=== PATIENT | male | born 1945 | race Caucasian/White ===

== ENCOUNTER → 2019-07-23 | Outpatient (CLI) | payer MEDICARE, OTHER ==
[2019-07-23 15:34] LABS: HCT 43.6 % (39.0-53.0); HGB 13.9 gm/dL (13.0-17.5); MCH 27.5 pg (25.0-35.0); MCHC 31.8 g/dL (31.0-37.0); MCV 86.3 fL (80.0-100.0); Mean Platelet Volume 7.1; Platelet Count 280 k/uL (150-450); RBC 5.06 m/uL (4.30-5.90); RDW 13.8 % (11.5-15.5); WBC 15.6 k/uL (3.8-10.6)
[2019-07-23 15:38] LABS: Appearance,Urine Clear (Clear); Bilirubin,Urine Negative (Negative); Blood,Urine Moderate (Negative); Color,Urine Yellow; Glucose,Urine (UA) Negative (Negative); Ketones,Urine 3+ (Negative); Leukocyte Esterase,Urine Trace (Negative); Mucus,Urine Many /hpf; Nitrite,Urine Negative (Negative); Protein,Urine Trace (Negative); RBC,Urine 43 /hpf (0-5); Specific Gravity,Urine 1.025 (1.001-1.035); Squamous Epithelial Cell,Urine <1 /hpf (0-4); Urobilinogen,Urine <2.0 mg/dL (<2.0); WBC,Urine 4 /hpf (0-5)
[2019-07-23 16:38] LABS: ALT 15 U/L (4-49); AST 40 U/L (17-59); African American GFR (CKD) >90 (>60 ml/min/1.73 sqM); Albumin 4.6 g/dL (3.5-5.0); Alkaline Phosphatase 131 U/L (38-126); Anion Gap 12 mmol/L; Blood Urea Nitrogen 18 mg/dL (9-20); Calcium 9.2 mg/dL (8.4-10.2); Carbon Dioxide 25 mmol/L (22-30); Chloride 96 mmol/L (98-107); Glucose 102 mg/dL (74-99); Non-African American GFR(CKD) 88 (>60 ml/min/1.73 sqM); Potassium 4.6 mmol/L (3.5-5.1); Sodium 133 mmol/L (137-145); Total Bilirubin 1.3 mg/dL (0.2-1.3); Total Protein 7.7 g/dL (6.3-8.2)
--- NOTE | 2019-07-23 17:37 | CT ---
EXAMINATION TYPE: CT abdomen pelvis w con DATE OF EXAM: 07/23/2019 COMPARISON: Ultrasound dated 07/23/2019 HISTORY: Abdominal pain, abnormal US CT DLP: 457.4 mGycm Automated exposure control for dose reduction was used. TECHNIQUE: Helical acquisition of images was performed from the lung bases through the pelvis. CONTRAST: Performed with Oral Contrast and with IV Contrast, patient injected with 100 mL of Isovue 300. FINDINGS: LUNG BASES: There is mild emphysematous change at the lung bases. There is a 5 mm solid pulmonary nod ule on image 2 series 4 in the right lung base. There is mild dilatation of the distal esophagus. Gas troesophageal stricture is possible. LIVER/GB: Are too small to accurately characterize 3 mm hepatic lesions in the left hepatic lobe on s eries 3 image 4 and 5. PANCREAS: Unremarkable enhancement with no main pancreatic ductal dilatation. SPLEEN: No splenomegaly. ADRENALS: No nodularity or thickening. KIDNEYS: The right kidney is markedly abnormal. There is moderate right hydronephrosis with dilatatio n of the minor calyces, particularly in the right upper pole. There is perinephric fat stranding and delayed enhancement of the right kidney in comparison to the left. There is a complex masslike lesion in the right upper pole measuring approximately 3.1 x 3.5 cm demonstrating central hypoattenuation o n delayed imaging. The urinary bladder is incompletely distended and suboptimally evaluated. Prostate gland is heterogenous containing central zone calcifications. Coronal images of the left kidney demo nstrate a renal sinus cyst of the inferior. FREE AIR: No free air is visualized. ADENOPATHY: No greater than 1 cm short axis lymph node in the abdomen or pelvis. OSSEOUS STRUCTURES: There is an osteolytic lesion of the pedicle and transverse processes and extend ing into the spinous process and spinal canal of L4 on the left. The soft tissue component measures a pproximately 3.0 x 4.2 cm. There is central spinal canal stenosis that appears at least moderate. The re is questionable extension to the inferior facet of L3 on sagittal image 59. BOWEL: No dilated large or small bowel seen. OTHER: There is severe atherosclerosis of the abdominal aorta and its branches. IMPRESSION: COMPLEX MASS OF THE RIGHT UPPER POLE THE KIDNEY. 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
== END | disposition home or self-care (01) ==
LOC: RADCTMAIN 14:20
PROVIDERS: ATTEND Nurse Practitioner Family
DX: N28.89 Other specified disorders of kidney and ureter (principal); N12 Tubulo-interstitial nephritis, not specified as acute or chronic; N13.30 Unspecified hydronephrosis; C64.9 Malignant neoplasm of unspecified kidney, except renal pelvis; C79.49 Secondary malignant neoplasm of other parts of nervous system; N20.0 Calculus of kidney; R30.0 Dysuria
CPT/HCPCS: 80053; 85027; 81001; 74177; 36415; Q9967

== ENCOUNTER → 2019-07-23 | Outpatient (CLI) | payer MEDICARE, OTHER ==
--- NOTE | 2019-07-23 13:46 | US ---
EXAMINATION TYPE: US kidneys/renal and bladder DATE OF EXAM: 07/23/2019 COMPARISON: CT 06/17/2013 CLINICAL HISTORY: N20.0 Kidney stone. Right flank pain EXAM MEASUREMENTS: Right Kidney: 11.4 x 5.0 x 4.9 cm Left Kidney: 10.8 x 4.7 x 4.6 cm Right Kidney: Mild hydronephrosis. Complex, hyperechoic area upper pole measuring 3.2 x 3.1 x 3.2 cm with internal vascularity Left Kidney: Cystic area lower pole measuring 1.6 x 1.5 x 1.3 cm Bladder: Irregular appearance. Mass appearance vs prostate. Difficult and limited evaluation. Patient states he drank the required water. Bilateral Jets seen: No IMPRESSION: 1. Complex mass upper pole right kidney. Neoplasm not excluded. CT correlation advised. 2. Mild right-sided hydronephrosis. 3. Limited evaluation of the urinary bladder.
== END | disposition home or self-care (01) ==
LOC: RADUSMAIN 13:06
PROVIDERS: ATTEND Nurse Practitioner Family
DX: N28.89 Other specified disorders of kidney and ureter (principal); N13.30 Unspecified hydronephrosis
CPT/HCPCS: 76770

== ENCOUNTER → 2019-07-28 | Outpatient (CLI) | payer MEDICARE, OTHER ==
--- NOTE | 2019-07-28 16:17 | NM ---
EXAMINATION TYPE: NM bone scan whole body DATE OF EXAM: 07/28/2019 COMPARISON: NONE CT 07/23/2019 HISTORY: History of renal malignancy Delayed whole-body scanning was performed following the injection of 21.7 mCi Tc 99m MDP. Images acq uired 3 hours post injection. Findings: intense abnormal uptake at the L3-L4 level on the left paracentral. This corresponds to a d estructive changes seen by previous CT scan. Abnormal uptake involving the shoulders likely post arthritic. Abnormal uptake involving the cervical spine the left nonspecific. Abnormal uptake involving the shoulders. The right is nonspecific but likely post arthritic. IMPRESSION: 1. Intense abnormal uptake at the lower lumbar spine level corresponding to the abnormal CT scan comp atible with destructive metastatic lesion. 2. Asymmetric uptake involving the shoulders greater on the right still likely post arthritic. 3. Nonspecific uptake involving the upper cervical spine on the left. Relate with x-ray.
== END | disposition home or self-care (01) ==
LOC: RADNMMAIN 11:15
PROVIDERS: ATTEND Internal Medicine Geriatric Medicine
DX: C64.9 Malignant neoplasm of unspecified kidney, except renal pelvis (principal)
CPT/HCPCS: 78306; A9503

== ENCOUNTER 2019-08-27 08:26 | Day surgery (SDC) | payer MEDICARE, OTHER ==
[2019-08-27 09:03] VITALS: TEMP 98.1
[2019-08-27] MEDS ORDERED: ALPRAZolam 0.25 MG TAB PO STA (09:24)
[2019-08-27 09:26] LABS: Platelet Count 509 k/uL (150-450)
[2019-08-27 09:32] LABS: Prothrombin Time 10.1 sec (9.0-12.0)
[2019-08-27 09:33] LABS: African American GFR (CKD) >90 (>60 ml/min/1.73 sqM); Blood Urea Nitrogen 22 mg/dL (9-20); Non-African American GFR(CKD) >90 (>60 ml/min/1.73 sqM)
--- NOTE | 2019-08-27 11:14 | CT ---
EXAMINATION TYPE: CT chest w con DATE OF EXAM: 08/27/2019 COMPARISON: Correlation CT abdomen pelvis 07/23/[address] chest 08/07/2013 HISTORY: 74-year-old male New renal diagnosis of renal cancer. TECHNIQUE: Contiguous axial scanning of the chest after the administration of 100 mL of Isovue 300. Coronal/sagittal reconstructions performed. CT DLP: 454mGycm. Automatic exposure control utilized for a dose reduction. FINDINGS: Heart normal size without pericardial effusion. Aorta normal caliber with mild atherosclerotic arch calcifications and conventional arch vessel branc aliyah anatomy. Prominent but nonenlarged 7 mm left hilar lymph node unchanged from 2013, likely chronic reactive/pos t inflammatory. No thoracic lymphadenopathy by CT size criteria. Right apical pleural parenchymal scarring. Moderate centrilobular emphysema. Trace left pleural effus ion. Ill-defined 6 mm nodularity posterior left base and some adjacent patchy interstitial thickening. 4 mm and 6 cm pulmonary nodules left lower lobe, axial images 55 and 48, respectively. Known right renal lesion partially visualized. No osseous destructive process identified within the thorax. IMPRESSION: 1. COPD with moderate emphysema. 2. Some mild patchy interstitial density at the posterior left base with a trace left effusion. Corre late to exclude an early infectious/inflammatory infiltrate. 3. Approximately 3 left lower lobe pulmonary nodules measuring up to 6 mm could be inflammatory as we ll. Short interval follow-up recommended to exclude metastatic pulmonary nodules.
[2019-08-27 11:29] VITALS: RESP 18
--- NOTE | 2019-08-27 11:44 | CT ---
EXAMINATION TYPE: CT biopsy bone superficial DATE OF EXAM: 08/27/2019 COMPARISON: 07/23/2019 HISTORY: L4 vertebral destructive mass CT DLP: 561 mGycm The procedure is discussed with the patient, the risks, complications, benefits and alternatives, wer e discussed and any questions were answered. Informed consent was obtained. The patient is placed p susu on the CT table, prepped and draped in the usual sterile fashion. Utilizing a 18-gauge core biopsy needle access into the destructive L4 vertebral mass was achieved wi th 2 passes performed. Pathology pending. All elements of maximal barrier sterile technique were ut ilized. The patient remained stable throughout the procedure with no immediate postprocedural compli cation. IMPRESSION: 1. Successful CT guided core biopsy of a destructive L4 vertebral mass
[2019-08-27 13:18] VITALS: BP 128/73; PULSE 99
== END 2019-08-27 12:30 | disposition home or self-care (01) ==
LOC: RADPROMAIN 08:26
PROVIDERS: ATTEND Internal Medicine Hematology & Oncology
DX: C64.9 Malignant neoplasm of unspecified kidney, except renal pelvis (principal); M48.8X6 Other specified spondylopathies, lumbar region; D41.10 Neoplasm of uncertain behavior of unspecified renal pelvis; Z88.0 Allergy status to penicillin
CPT/HCPCS: 88305; 82565; 84520; 85049; 85610; 88342; 88341; 36415; 77012; 71260; 20220; Q9967

== ENCOUNTER → 2019-12-15 | Outpatient (CLI) | payer MEDICARE, OTHER ==
[2019-12-15 10:42] LABS: African American GFR (CKD) >90 (>60 ml/min/1.73 sqM); Blood Urea Nitrogen 17 mg/dL (9-20); Non-African American GFR(CKD) 88 (>60 ml/min/1.73 sqM)
--- NOTE | 2019-12-16 21:17 | CT ---
EXAMINATION TYPE: CT ChestAbdPelvis w con DATE OF EXAM: 12/15/2019 INDICATION: Renal cancer COMPARISON: 08/27/2019 CT DLP: 1140 mGycm CONTRAST: Performed with Oral Contrast and with IV Contrast, patient injected with 100 ml mL of Isovue 300. TECHNIQUE: Axial images at 5 mm thick sections. Reconstructed images in the coronal plane. Delayed images through the kidneys. FINDINGS: CT CHEST: Portion of the thyroid visualized is normal. Mild increase lung opacities are within the medial left upper lung field. Small nodule may be present measuring 0.6 cm. Series 4 image 30. No enlarged mediastinal or hilar adenopathy is evident. The ascending aorta diameter at the level of the main pulmonary artery is 3.7 cm. The main pulmonary artery diameter at the bifurcation is 2.[address] ABDOMEN: Liver: Normal Spleen: Normal Pancreas: Normal Adrenal glands: The adrenal glands are normal. Gallbladder: Normal Kidneys: There is ill-defined hypodensity within the superior posterior right kidney measuring 2.3 cm this may be postsurgical does not appear as masslike density comparison 07/23/2019 CT abdomen. No hydr onephrosis is present. There may be small peripelvic cysts at the inferior pole left kidney. Aorta: Vascular calcification is within the aorta. Minimal fusiform prominence measuring 2.5 cm in A P diameter. Inferior vena cava: Normal. CT PELVIS: Loops of bowel within the abdomen and pelvis are normal. Moderate fecal debris is through the ascendi ng colon. There are loops of bowel which are incompletely distended or lack oral contrast limiting t heir evaluation. Appendix: Not identified. No suspicious tubular structures or inflammatory changes are evident. Urinary bladder: Normal. Genitourinary structures: State appears within normal limits Osseous structures: There is a lytic region within the spinous process of L4. A metastatic lesion corina uld be considered within the lamina of L4 extending into the spinous process. Series 7 image 39, seri es 6 image 67. Measurements are 3.6 x 2.0 cm. This is compared to 3.0 x 4.2 cm. Spinal canal narrowi ng remains present. IMPRESSIONS: 1. There appear to be postsurgical changes at the superior pole right kidney with ill-defined hypoden sity present small the previous masslike area in this region. 2. Lytic lesion with expansile findings at the L4 lamina, present previously 3. Suspected peripelvic cyst inferior pole left kidney. 4. Suspected 0.6 cm nodule medial lingula. This is an interval change.
== END | disposition home or self-care (01) ==
LOC: RADCTMAIN 09:17
PROVIDERS: ATTEND Internal Medicine Hematology & Oncology
DX: C64.9 Malignant neoplasm of unspecified kidney, except renal pelvis (principal); C79.51 Secondary malignant neoplasm of bone; R93.421 Abnormal radiologic findings on diagnostic imaging of right kidney; Z88.0 Allergy status to penicillin
CPT/HCPCS: 82565; 84520; 71260; 74177; 36415; Q9967

== ENCOUNTER 2020-01-21 17:08 | Emergency (ER) | payer MEDICARE, OTHER ==
[2020-01-21 17:16] VITALS: RESP 18
[2020-01-21 18:06] LABS: ALT 26 U/L (4-49); AST 40 U/L (17-59); African American GFR (CKD) >90 (>60 ml/min/1.73 sqM); Albumin 3.6 g/dL (3.5-5.0); Alkaline Phosphatase 70 U/L (38-126); Anion Gap 8 mmol/L; Blood Urea Nitrogen 19 mg/dL (9-20); Calcium 8.4 mg/dL (8.4-10.2); Carbon Dioxide 28 mmol/L (22-30); Chloride 102 mmol/L (98-107); Glucose 92 mg/dL (74-99); Non-African American GFR(CKD) >90 (>60 ml/min/1.73 sqM); Potassium 3.4 mmol/L (3.5-5.1); Sodium 138 mmol/L (137-145); Total Bilirubin 1.9 mg/dL (0.2-1.3); Total Protein 5.9 g/dL (6.3-8.2)
[2020-01-21 18:19] LABS: Anisocytosis Slight; Basophils % (A) 0 %; Eosinophils # (A) 0.1 k/uL (0-0.7); Eosinophils % (A) 3 %; HCT 43.7 % (39.0-53.0); HGB 14.4 gm/dL (13.0-17.5); Lymphocytes # (A) 1.7 k/uL (1.0-4.8); Lymphocytes % (A) 39 %; MCHC 32.9 g/dL (31.0-37.0); MCV 97.3 fL (80.0-100.0); Macrocytosis Slight; Mean Platelet Volume 7.9; Monocytes # (A) 0.3 k/uL (0-1.0); Monocytes % (A) 6 %; Neutrophils # (A) 2.3 k/uL (1.3-7.7); Neutrophils % (A) 51 %; Platelet Count 117 k/uL (150-450); RBC 4.49 m/uL (4.30-5.90); RDW 17.5 % (11.5-15.5); WBC 4.5 k/uL (3.8-10.6)
[2020-01-21] MEDS ORDERED: POTASSIUM CHLORIDE ER 10 MEQ TAB.ER.PRT PO STA (19:05)
--- NOTE | 2020-01-21 19:07 | ED ---
General Adult HPI - General Chief complaint: Dental/Oral Stated complaint: Spitting up blood, needs blood work, sent by Dr Time Seen by Provider: 01/21/20 17:18 Source: patient, RN notes reviewed, old records reviewed Mode of arrival: wheelchair Limitations: no limitations - History of Present Illness Initial comments: 74-year-old male patient to ED for evaluation. Patient reports that he noticed the blue spot on his tongue underneath his tongue. He is currently taking oral chemotherapy for renal cell carcinoma. Denies any other acute complaints. He denies any active bleeding. Systemic: Pt denies fatigue, fever/chills, rash. Pt denies weakness, night sweats, weight loss. Neuro: Pt denies headache, visual disturbances, syncope or pre-syncope. HEENT: Pt denies ocular discharge or irritation, otalgia, rhinorrhea, pharyngitis or notable lymphadenopathy. Cardiopulmonary: Pt denies chest pain, SOB, heart palpitations, dyspnea on exertion. Abdominal/GI: Pt denies abdominal pain, n/v/d. : Pt denies dysuria, burning w/ urination, frequency/urgency. Denies new onset urinary or bowel incontinence. MSK: Pt denies myalgia, loss of strength or function in extremities. Neuro: Pt denies new onset weakness, paresthesias. - Related Data Home Medications Medication Instructions Recorded Confirmed Albuterol Sulfate [Proair Hfa] 2 puff INHALATION RT-Q6H PRN 08/07/13 01/21/20 Tiotropium 18 Mcg/Puff [Spiriva] 2 cap INHALATION RT-DAILY 08/07/13 01/21/20 Fluticasone/Vilanterol [Breo 1 puff INHALATION RT-DAILY 08/13/19 01/21/20 Ellipta 100-25 Mcg Inhaler] Tamsulosin [Flomax] 0.4 mg PO DAILY 08/13/19 01/21/20 Vits A,C,E/Lutein/Minerals 1 tab PO DAILY 08/13/19 01/21/20 [Ocuvite with Lutein Tablet] Cabozantinib S-Malate [Cabometyx] 60 mg PO DAILY 01/21/20 01/21/20 Calcium Carbonate/Vitamin D3 2 tab PO BID 01/21/20 01/21/20 [Calcium 250-D Tablet] Diphenox-Atrop 2.5-0.025 mg 2 tab PO 5XD PRN 01/21/20 01/21/20 [Lomotil] Omeprazole 40 mg PO DAILY 01/21/20 01/21/20 dronabinoL [Marinol] 2.5 mg PO AC-BID 01/21/20 01/21/20 Allergies Allergy/AdvReac Type Severity Reaction Status Date / Time [place] Sprouts Allergy Swelling Verified 01/21/20 18:45 Penicillins Allergy Unknown Verified 01/21/20 18:45 Childhood venom-honey bee Allergy Unknown Verified 01/21/20 18:45 [bee venom (honey bee)] Childhood Review of Systems ROS Statement: Those systems with pertinent positive or pertinent negative responses have been documented in the HPI. ROS Other: All systems not noted in ROS Statement are negative. Past Medical History Past Medical History: Cancer, COPD Additional Past Medical History / Comment(s): renal mass, bone mets, patient is getting set up to have radiation on his spine (patient is unsure of site) History of Any Multi-Drug Resistant Organisms: None Reported Additional Past Surgical History / Comment(s): hemorroid Past Anesthesia/Blood Transfusion Reactions: No Reported Reaction Past Psychological History: Anxiety Smoking Status: Former smoker Past Alcohol Use History: Occasional Past Drug Use History: None Reported General Exam - General Exam Comments Initial Comments: Constitutional: NAD, AOX3, Pt has pleasant affect. HEENT: NC/AT, trachea midline, neck supple, no lymphadenopathy. Posterior phar ynx non erythematous, without exudates. External ears appear normal, without discharge. Mucous membranes moist. Eyes PERRLA, EOM intact. There is no scleral icterus. No pallor noted. There is a small area of bluish discoloration on his tongue. Cardiopulmonary: RRR, no murmurs, rubs or gallops, no JVD noted. Lungs CTAB in anterior and posterior lowe. No peripheral edema. Abdominal exam: Abdomen soft and non-distended. Abdomen non-tender to palpation in all 4 quadrants. Bowel sounds active in LLQ. No hepatosplenomegaly. No ecchymosis Neuro: Full active ROM in upper and lower extremities. Limitations: no limitations Course Vital Signs 01/21/20 17:14 Temperature 98.5 F Pulse Rate 101 H Respiratory 18 Rate Blood Pressure 136/82 O2 Sat by Pulse 99 Oximetry Medical Decision Making - Medical Decision Making 74-year-old male patient to ED for evaluation. Patient vital signs are stable, afebrile. Physical exam displayed a small about 3 x 3 mm area with a slight bluish discoloration on the tongue. Patient was concerned also about the underneath his tongue which does appear just to be a vein. There is no active bleeding noted. CBC CMP is checked. Potassium is 3.4. Bilirubin is 1.9. Patient has no abdominal tenderness. Patient potassium will be supplemented. Patient will be discharged with outpatient follow up and return precautions. Case discused with Dr. Sparks. - Lab Data Result diagrams: 01/21/20 17:30 01/21/20 17:30 Lab Results 01/21/20 01/21/20 Range/Units 17:30 17:30 WBC 4.5 (3.8-10.6) k/uL RBC 4.49 (4.30-5.90) m/uL Hgb 14.4 (13.0-17.5) gm/dL Hct 43.7 (39.0-53.0) % MCV 97.3 (80.0-100.0) fL MCH 32.0 (25.0-35.0) pg MCHC 32.9 (31.0-37.0) g/dL RDW 17.5 H (11.5-15.5) % Plt Count 117 L (150-450) k/uL Neutrophils % 51 % Lymphocytes % 39 % Monocytes % 6 % Eosinophils % 3 % Basophils % 0 % Neutrophils # 2.3 (1.3-7.7) k/uL Lymphocytes # 1.7 (1.0-4.8) k/uL Monocytes # 0.3 (0-1.0) k/uL Eosinophils # 0.1 (0-0.7) k/uL Basophils # 0.0 (0-0.2) k/uL Anisocytosis Slight Macrocytosis Slight Sodium 138 (137-145) mmol/L Potassium 3.4 L (3.5-5.1) mmol/L Chloride 102 (98-107) mmol/L Carbon Dioxide 28 (22-30) mmol/L Anion Gap 8 mmol/L BUN 19 (9-20) mg/dL Creatinine 0.75 (0.66-1.25) mg/dL Est GFR (CKD-EPI)AfAm >90 (>60 ml/min/1.73 sqM) Est GFR (CKD-EPI)NonAf >90 (>60 ml/min/1.73 sqM) Glucose 92 (74-99) mg/dL Calcium 8.4 (8.4-10.2) mg/dL Total Bilirubin 1.9 H (0.2-1.3) mg/dL AST 40 (17-59) U/L ALT 26 (4-49) U/L Alkaline Phosphatase 70 (38-126) U/L Total Protein 5.9 L (6.3-8.2) g/dL Albumin 3.6 (3.5-5.0) g/dL Disposition Clinical Impression: Hypokalemia Disposition: HOME SELF-CARE Condition: Stable Instructions (If sedation given, give patient instructions): Hypokalemia (ED) Additional Instructions: Follow up with PCP tomorrow. Return to ED with any worsening symptoms. Is patient prescribed a controlled substance at d/c from ED?: No Referrals: Brody Manzano MD [Primary Care Provider] - 1-2 days
[2020-01-21 19:16] VITALS: BP 165/83; PULSE 80; TEMP 96.9
== END 2020-01-21 19:16 | disposition home or self-care (01) ==
LOC: EC 17:08 → SUPCPDRO 17:08 → EC 19:16
DX: C64.9 Malignant neoplasm of unspecified kidney, except renal pelvis (principal); C79.51 Secondary malignant neoplasm of bone; E87.6 Hypokalemia; K14.8 Other diseases of tongue; J44.9 Chronic obstructive pulmonary disease, unspecified; Z79.51 Long term (current) use of inhaled steroids; Z79.899 Other long term (current) drug therapy; Z88.0 Allergy status to penicillin; Z91.030 Bee allergy status; Z91.018 Allergy to other foods; Z87.891 Personal history of nicotine dependence
CPT/HCPCS: 36415; 80053; 85025; 99284

== ENCOUNTER → 2020-03-02 | Outpatient (CLI) | payer MEDICARE, OTHER ==
--- NOTE | 2020-03-02 09:03 | CT ---
EXAMINATION TYPE: CT hip LT wo con DATE OF EXAM: 03/02/2020 COMPARISON: CT December 15, 2019 HISTORY: Bone metastases per order. Pain in left hip for [address] DLP: 264 mGycm Automated exposure control for dose reduction was used. FINDINGS: No acute fracture or dislocation in the left hip. No suspicious new focal lytic or sclerotic lesion i s seen. Persistent fairly moderate axial joint space loss with mild acetabular spurring. Surrounding muscle bulk is maintained. No suspicious groin hernia or adenopathy identified. Visualized portion of sacroiliac joint is unremarkable. IMPRESSION: As above. No significant change from recent CT.
--- NOTE | 2020-03-02 10:04 | CT ---
EXAMINATION TYPE: CT lumbar spine wo con DATE OF EXAM: 03/02/2020 7:37 AM COMPARISON: Most recent CT December 15, 2019 HISTORY: Kidney cancer with osseous metastatic disease. CT DLP: 868 mGycm Automated exposure control for dose reduction was used. Unenhanced CT of the lumbar spine was performed. Bone and soft tissue window settings are submitted as well as coronal and sagittal reconstructions. There are 5 lumbar type vertebra are redemonstrated. Lumbar spine shows satisfactory alignment withou t acute fracture or dislocation. Vertebral body heights and disc space heights are fairly well-maint ained. Small posterior disc herniation is mildly thick anterior thecal sac at all lumbar levels on sa gittal and axial images. Corresponding to recent CT there is expansile lytic destructive lesion involving the left L4 lamina e xtending into the medial portion of the transverse process and anterior aspect of the left spinous pr ocess measuring roughly 3.4 cm transversely by 2.9 cm AP diameter axial image 48, this is somewhat si milar appearance to prior study on image 89. Some protrusion into the posterior lateral left aspect s shae canal remains present at this level corresponding to sagittal image 14 similar to prior study. Some height loss of the posterior superior L4 vertebra left of midline on image 18 has similar appear ance to prior study. There is additional destructive lytic lesions involving the left L3 lamina axial image central transv erse process axial image 39 new or More prominent from prior with smaller lytic lesions at left later al L3 and L4 articulation Axial image 42 fairly stable from prior. No additional new lytic lesions. Moderate calcified plaque overlying abdominal aorta. Patient has aggie y little intra-abdominal fat. Some cortical thinning in both kidneys. There is roughly 3.0 cm thin-wa lled cyst lower pole left kidney redemonstrated coronal image 24. IMPRESSION: Stable expansile lytic destructive lesion left L4 level with some spinal canal effacement . Stable smaller lytic lesions near the L3-L4 articulation. New or more prominent lytic lesion left L3 transverse process and lamina.
== END | disposition home or self-care (01) ==
LOC: RADCTMAIN 06:54
PROVIDERS: ATTEND Internal Medicine Hematology & Oncology
DX: M25.752 Osteophyte, left hip (principal); M25.852 Other specified joint disorders, left hip; G95.89 Other specified diseases of spinal cord; C64.9 Malignant neoplasm of unspecified kidney, except renal pelvis; C79.51 Secondary malignant neoplasm of bone; Z88.0 Allergy status to penicillin
CPT/HCPCS: 72131

== ENCOUNTER → 2020-05-31 | Outpatient (CLI) | payer MEDICARE, OTHER ==
[2020-05-31 13:23] LABS: African American GFR (CKD) >90 (>60 ml/min/1.73 sqM); Blood Urea Nitrogen 23 mg/dL (9-20); Non-African American GFR(CKD) >90 (>60 ml/min/1.73 sqM)
--- NOTE | 2020-05-31 15:05 | CT ---
EXAMINATION TYPE: CT ChestAbdPelvis w con DATE OF EXAM: 05/31/2020 COMPARISON: 12/15/2019 HISTORY: 75-year-old male C64.9, kidney cancer TECHNIQUE: Contiguous axial scanning of the chest, abdomen, and pelvis performed with IV Contrast, pa tient injected with 100 mL of Isovue 300. Delayed images through the kidneys were obtained. Coronal/s agittal reconstructions performed. CT DLP: 488.4 mGycm Automated exposure control for dose reduction was used. FINDINGS: CHEST: Heart normal size without pericardial effusion. Mild atherosclerotic arch calcifications with conventional arch vessel branching anatomy. Additional mild atherosclerotic calcifications mid to lower descending thoracic aorta with a mild aneurysm of 3. 1 cm. No thoracic lymphadenopathy by CT size criteria. Moderate to advanced emphysema. 6 mm posterior left midlung pulmonary nodule unchanged. Additional nodularity posterior left base, (axial image 56 and 58) also unchanged. No consolidation or pleural effusion. ABDOMEN: Tiny hiatal hernia. Tiny subcentimeter hypodensity left hepatic dome is unchanged, likely small cyst. Portal venous syste m is patent. No biliary ductal dilatation. Gallbladder, adrenal glands, spleen, pancreas show no gross abnormality. 1.8 cm parapelvic cyst lower pole left kidney is unchanged. Ill-defined area of hypodensity along the upper pole cortex of the right kidney measures approximatel y 2.4 x 1.5 cm versus 2.4 x 1.6 cm, previously. Moderate atherosclerotic calcifications abdominal aorta. No dilated small bowel, free fluid, or free air. There is mild generalized anasarca changes. No evide nt mesenteric or retroperitoneal lymphadenopathy. Mild circumferential wall thickening along the ascending colon, axial images 93 and 97. There is mild to moderate stool burden. No pericolonic inflammatory change. PELVIS: Bladder urine distended. Either some fluid along the right inguinal canal or high riding right testic le now present. Prostate gland measures 3.8 cm wide. No abnormal fluid collection in the pelvis or pe lvic lymphadenopathy. BONES: Focal lytic area left L4 posterior elements extending into the spinous process shows no significant c hange. Some associated lucencies within the left L3 inferior facet and pars region. No new osseous destructive process seen. IMPRESSION: 1. RELATIVELY STABLE POSTSURGICAL CHANGE ALONG THE UPPER POLE OF THE RIGHT KIDNEY. NO EVIDENCE FOR LOCOREGIONAL RECURRENCE. 2. LYTIC AREA WITHIN THE LEFT L4 POSTERIOR ELEMENTS AND TO A LESSER DEGREE LEFT L3 POSTERIOR ELEMENTS REMAINS UNCHANGED. 3. COPD WITH MODERATE TO ADVANCED EMPHYSEMA. A FEW PULMONARY NODULES in THE LEFT LOWER LOBE MEASURING UP TO 6 MM REMAIN UNCHANGED. 4. MILD CIRCUMFERENTIAL WALL THICKENING ALONG THE ASCENDING COLON. CORRELATE TO EXCLUDE NONSPECIFIC M ILD COLITIS.
== END ==
LOC: RADCTMAIN 12:30
PROVIDERS: ATTEND Internal Medicine Hematology & Oncology
DX: C64.9 Malignant neoplasm of unspecified kidney, except renal pelvis (principal); J44.9 Chronic obstructive pulmonary disease, unspecified; R91.8 Other nonspecific abnormal finding of lung field; R93.3 Abnormal findings on diagnostic imaging of other parts of digestive tract
CPT/HCPCS: 82565; 84520; 71260; 74177; 36415; Q9967

== ENCOUNTER → 2020-09-06 | Outpatient (CLI) | payer MEDICARE, OTHER ==
[2020-09-06 12:10] LABS: African American GFR (CKD) >90 (>60 ml/min/1.73 sqM); Blood Urea Nitrogen 19 mg/dL (9-20); Non-African American GFR(CKD) >90 (>60 ml/min/1.73 sqM)
--- NOTE | 2020-09-06 14:16 | CT ---
EXAMINATION TYPE: CT ChestAbdPelvis w con DATE OF EXAM: 09/06/2020 COMPARISON: 05/31/2020 HISTORY: Renal cell carcinoma follow-up CONTRAST: CT scan of the chest, abdomen and pelvis is performed with Oral Contrast and with IV Contrast, patien t injected with 100 mL of Isovue 300. CT Chest: LUNGS: There is a new nodular density left lower lobe measuring 9.4 mm. A new adjacent 3 mm nodule no estefania as well image 48. Stable left lower lobe nodular density image 48 as well measures 5 mm. Emphysem atous changes noted. No pleural effusion or CT evidence of interstitial lung disease. MEDIASTINUM: Thoracic aorta is of normal caliber. The heart is not enlarged. No evidence for media stinal mass or adenopathy. HILAR STRUCTURES: No evidence for mass. No hilar adenopathy is appreciated. OTHER: No significant abnormality. CONTRAST CT ABDOMEN AND PELVIS FINDINGS: LIVER/GB: No calcified gallstones. No space occupying hepatic lesion. Biliary tree is of normal ca liber. PANCREAS: No inflammation. No distinct mass. SPLEEN: No splenic enlargement. No lesion seen. ADRENALS: No nodule. No thickening. KIDNEYS/BLADDER: No hydronephrosis. No nephrolithiasis. Stable parapelvic cyst lower pole left kidn ey measuring 1.8 cm. Ill-defined area of hypodensity along the upper pole cortex of the right kidney measures 2.4 x 1.6 cm versus 2.4 x 1.5 cm previously. BOWEL: Small hiatal hernia noted. Normal appendix. Normal bowel caliber. No inflammation. GENITAL ORGANS: No gross abnormality. LYMPH NODES: No greater than 1cm abdominal or pelvic lymph nodes are appreciated. AORTA: No significant abnormality. OSSEOUS STRUCTURES: Lytic osseous lesions are noted and unchanged. OTHER: No significant additional abnormality is seen. IMPRESSION: 1. No change in ill-defined area of hypodensity upper pole right kidney. This may reflect postoperati ve change. 2. Lytic L4 on L3 posterior elements are stable. 3. New nodular densities left lower lobe. Follow-up is advised. Emphysematous changes noted.
== END | disposition home or self-care (01) ==
LOC: RADCTMAIN 10:31
PROVIDERS: ATTEND Internal Medicine Hematology & Oncology
DX: C64.9 Malignant neoplasm of unspecified kidney, except renal pelvis (principal); J98.4 Other disorders of lung
CPT/HCPCS: 82565; 84520; 71260; 74177; 36415; Q9967

== ENCOUNTER → 2020-11-01 | Outpatient (CLI) | payer MEDICARE, OTHER ==
[2020-11-01 11:46] LABS: African American GFR (CKD) >90 (>60 ml/min/1.73 sqM); Blood Urea Nitrogen 18 mg/dL (9-20); Non-African American GFR(CKD) >90 (>60 ml/min/1.73 sqM)
--- NOTE | 2020-11-01 16:02 | CT ---
EXAMINATION TYPE: CT ChestAbdPelvis w con DATE OF EXAM: 11/01/2020 COMPARISON: 09/06/2020, 05/31/2020, 12/15/2019 HISTORY: 75-year-old male C64.9, Kidney cancer follow up TECHNIQUE: Contiguous axial scanning of the chest, abdomen, and pelvis performed with IV Contrast, pa tient injected with 80 mL of Isovue 300. Delayed images through the kidneys and coronal/sagittal alayna nstructions performed. CT DLP: 491.7 mGycm Automated exposure control for dose reduction was used. FINDINGS: CHEST: Are normal size with small anterior pericardial effusion measuring 6 cm. Borderline ectatic aortic root at 3.5 cm. Mild atherosclerotic arch calcifications. Conventional arch vessel branching anatomy. No thoracic lymphadenopathy by CT size criteria. Moderate to advanced emphysema Vague 7 mm nodule periphery of the left lower lobe, adjacent 7 mm posterior right lower lobe pulmonar y nodule and a few additional left lower lobe pulmonary nodules measuring up to 5 mm are unchanged. A 9 mm posterior left basilar pulmonary nodule appears new, axial image 61. No consolidation or pleural effusion. ABDOMEN: Small hiatal hernia. Trace perihepatic ascites is unchanged. A couple subcentimeter cysts in the left hepatic dome are unchanged. Portal venous system is patent. Gallbladder collapsed. Adrenal glands, spleen, and pancreas appear within normal limits. 1.5 cm parapelvic cyst lower pole left kidney unchanged. Focal cortical hypodensity posterior upper pole right kidney measures 2.0 x 1.1 cm, unchanged from and slightly less pronounced compared to 05/31/2020, likely site of treated disease. Generalized anasarca change. Moderate atherosclerotic calcifications throughout the abdominal aorta. There is fusiform dilatation infrarenal abdominal aorta up to 2.4 cm. No zainab aneurysm. No dilated small bowel, free fluid, or free air. Allowing for the anasarca changes in hazy intra-abdo claudine fat densities, no obvious mesenteric or retroperitoneal lymphadenopathy. Moderate stool burden. No pericolonic inflammatory change. PELVIS: Bladder urine distended. Mild to moderate pelvic ascites. Generalized anasarca change continues into the pelvis. Prostate gland measures 3.6 cm wide. No pelvic lymphadenopathy seen. BONES: Stable lytic lesion involving the mid and left-sided posterior elements of L3 and L4 measuring up to 3.2 cm wide. No new osseous destructive process is seen. IMPRESSION: 1. A NEW 9 MM POSTERIOR LEFT BASILAR PULMONARY NODULE. A SINGLE NEW METASTATIC PULMONARY NODULE NOT E XCLUDED AT THIS TIME. OTHER LEFT LOWER LOBE PULMONARY NODULES MEASURING UP TO 7 MM ARE UNCHANGED FROM 09/06/2020. 2. STABLE 2.0 X 1.1 CM HYPODENSITY POSTERIOR UPPER POLE RIGHT KIDNEY, LIKELY SITE OF TREATED DISEASE. THE LYTIC LESION INVOLVING THE LEFT L3 AND L4 POSTERIOR ELEMENTS IS ALSO UNCHANGED. 3. COPD WITH MODERATE TO ADVANCED EMPHYSEMA. 4. CORRELATE FOR FLUID OVERLOAD STATE/THIRD SPACING GIVEN DIFFUSE ANASARCA CHANGE AND MILD ABDOMINOPE LVIC ASCITES.
== END | disposition home or self-care (01) ==
LOC: RADCTMAIN 10:59
PROVIDERS: ATTEND Internal Medicine Hematology & Oncology
DX: J43.9 Emphysema, unspecified (principal); R91.8 Other nonspecific abnormal finding of lung field; N28.89 Other specified disorders of kidney and ureter; R18.8 Other ascites; Z85.528 Personal history of other malignant neoplasm of kidney
CPT/HCPCS: 82565; 84520; 71260; 74177; 36415; Q9967

== ENCOUNTER → 2021-02-01 | Outpatient (CLI) | payer MEDICARE, OTHER ==
[2021-02-01 13:52] LABS: African American GFR (CKD) >90 (>60 ml/min/1.73 sqM); Blood Urea Nitrogen 32 mg/dL (9-20); Non-African American GFR(CKD) 89 (>60 ml/min/1.73 sqM)
--- NOTE | 2021-02-01 15:57 | CT ---
EXAMINATION TYPE: CT ChestAbdPelvis w con DATE OF EXAM: 02/01/2021 COMPARISON: Most recent CT November 01, 2020 and older studies HISTORY: renal ca CT DLP: 505.6 mGycm. Automated Exposure Control for Dose Reduction was Utilized. CONTRAST: CT scan of the thorax, abdomen and pelvis is performed with oral and with IV Contrast, patient inject ed with 100 mL of Isovue 300. FINDINGS: LUNGS: Moderate to advanced underlying emphysematous change is redemonstrated. Stable 6 mm nodule or nodular scarring posterior left lower lobe axial image [address] There is slightly thic kened linear scarring inferior lateral to this axial images 49 through 51 redemonstrated. The prior v isualized 7 mm nodule posteriorly on image 53 is now not clearly seen on current study. Similar prior visualized posterior 9 mm nodule or nodular consolidation axial image 61 there is now not clearly se en current study. No new nodules or masses. No pleural effusion or pneumothorax seen. MEDIASTINUM: There are no new greater than 1 cm hilar or mediastinal lymph nodes. No cardiomegaly o r pericardial effusion is seen. Mild to moderate mixed plaque in aortic arch extending into descendi ng thoracic aorta. LIVER/GB: No significant abnormality is appreciated. PANCREAS: No significant abnormality is seen. SPLEEN: No significant abnormality is seen. ADRENALS: No significant abnormality is seen. KIDNEYS: Small central thin-walled cyst lower pole left kidney coronal image 52 redemonstrated. Symme tric cortical medullary uptake and excretion without hydronephrosis seen bilaterally. There is approx imately 2 x 1 cm cortical defect posterior aspect upper pole right kidney corresponding to site of pr ior treated neoplasm axial image 72 series 3. This is unchanged from most recent CT. BOWEL: Patient has little intra-abdominal fat making evaluation suboptimal. Oral contrast does not re ach colonic level making evaluation suboptimal. Slight prominence of the right colon redemonstrated. Overall no suspicious small or large bowel dilatation. GENITAL ORGANS: No gross abnormality seen. LYMPH NODES: No greater than 1cm abdominal or pelvic lymph nodes are appreciated. OSSEOUS STRUCTURES: Stable lytic lesions involving the pedicle and lateral elements L4 level with alethea rounding sclerosis, extension into the spinous process axial image 86 redemonstrated unchanged from p rior study image 88. OTHER: Markedly improved soft tissue edema. IMPRESSION: Interval resolution of the 7 and 9 mm posterior left basilar nodules. Stable posttreatme nt change posterior aspect upper pole right kidney. Stable suspected treated disease to the left L4 v ertebra. No new or enlarging masses or adenopathy clearly seen to suggest neoplastic progression.
== END | disposition home or self-care (01) ==
LOC: RADCTMAIN 12:53
PROVIDERS: ATTEND Internal Medicine Hematology & Oncology
DX: C64.9 Malignant neoplasm of unspecified kidney, except renal pelvis (principal); R91.8 Other nonspecific abnormal finding of lung field
CPT/HCPCS: 82565; 84520; 71260; 74177; 36415; Q9967

== ENCOUNTER → 2021-05-17 | Outpatient (CLI) | payer MEDICARE, OTHER ==
[2021-05-17 14:13] LABS: African American GFR (CKD) >90 (>60 ml/min/1.73 sqM); Blood Urea Nitrogen 29 mg/dL (9-20); Non-African American GFR(CKD) 80 (>60 ml/min/1.73 sqM)
--- NOTE | 2021-05-17 20:14 | CT ---
EXAMINATION TYPE: CT ChestAbdPelvis w con DATE OF EXAM: 05/17/2021 COMPARISON: CT dated 02/01/2021 HISTORY: f/u kidney ca CT DLP: 948 mGycm Automated exposure control for dose reduction was used. CONTRAST: CT scan of the chest, abdomen and pelvis is performed with Oral Contrast and with IV Contrast, patien t injected with 100 mL of Isovue 300. FINDINGS: LUNGS: Smaller left lower lobe nodule measuring 5 mm (image 48, series 4) compared to 6 mm previously . Newly seen peripheral pleural-based infiltration/consolidation at the posterior aspect of the left lung base measuring up to 16mm, nonspecific. Similar but smaller infiltration seen in the lateral asp ect of the left lung base measuring 8mm with another area of infiltration is seen in the lingula david g the left oblique fissure measuring 10 mm. Persistent severe COPD changes. No pleural effusion. Murphy nt trachea and main bronchi MEDIASTINUM: Right cardiac enlargement, please correlate with echocardiographic results. No pathologi sraah enlarged lymph nodes in the chest. No pericardial effusion. Aortic and coronary arterial athero sclerotic calcifications. OTHER: No aggressive bone lesion. LIVER/GB: Stable hepatic hypodensities likely representing hepatic cysts. Unremarkable gallbladder. PANCREAS: No significant abnormality is seen. SPLEEN: No significant abnormality is seen. ADRENALS: No significant abnormality is seen. KIDNEYS: Stable cortical hypodensity at the upper pole of right kidney likely related to previous int ervention. Stable left lower pole renal cyst. No progressive renal lesion. Unremarkable urinary bladd er. BOWEL: Significant fecal loading of the colon suggestive of constipation. REPRODUCTIVE ORGANS: Large prostate, please correlate with PSA level. LYMPH NODES: No greater than 1 cm abdominal or pelvic lymph nodes are appreciated. OSSEOUS STRUCTURES: Grossly stable expansile lytic lesion involving the left and posterior aspects of L4. No definite new metastatic lesion identified. OTHER: Stable infrarenal abdominal aortic ectasia measuring up to 2.4 cm with extensive arterial athe rosclerotic calcifications. No sizable ascites. IMPRESSION: 1. Slightly smaller previously seen left lower lobe nodule yet with newly seen areas of infiltration in the lingula and left lower lung lobe as described above. This could represent an inflammatory/infe ctious process however metastatic lesions cannot be excluded. Recommend short-term follow-up. 2. Stable suspected post interventional changes at the upper pole of the right kidney. 3. Stable expansile lytic lesion involving the L4 vertebra. Otherwise no evidence of metastatic disea se seen in the chest, abdomen or the pelvis. Incidental findings as described above.
== END | disposition home or self-care (01) ==
LOC: RADCTMAIN 13:22
PROVIDERS: ATTEND Internal Medicine Hematology & Oncology
DX: C64.1 Malignant neoplasm of right kidney, except renal pelvis (principal); C79.51 Secondary malignant neoplasm of bone; R91.1 Solitary pulmonary nodule
CPT/HCPCS: 82565; 84520; 71260; 74177; 36415; Q9967

== ENCOUNTER → 2021-08-10 | Outpatient (CLI) | payer MEDICARE, OTHER ==
[2021-08-10 17:37] LABS: African American GFR (CKD) >90 (>60 ml/min/1.73 sqM); Blood Urea Nitrogen 31 mg/dL (9-20); Non-African American GFR(CKD) >90 (>60 ml/min/1.73 sqM)
--- NOTE | 2021-08-11 06:39 | CT ---
EXAMINATION TYPE: CT ChestAbdPelvis w con DATE OF EXAM: 08/10/2021 COMPARISON: Most recent CT May 17, 2021 and older studies HISTORY: Follow up for renal cell cancer CT DLP: 492.4 mGycm. Automated Exposure Control for Dose Reduction was Utilized. CONTRAST: CT scan of the thorax, abdomen and pelvis is performed with oral and with IV Contrast, patient inject ed with 100 mL of Isovue 300. FINDINGS: LUNGS: Moderate to advanced underlying emphysematous change is redemonstrated. Stable posterior 6 mm nodule or nodular scarring left lower lobe axial image 49 from most recent CTs. Stable focal linear s carring inferior lateral to this axial images 50 through 53 redemonstrated. Stable 11 x 10 mm posteri or nodule or nodular consolidation axial image [address] [id number] left basilar linear scarring and/or atelectasis redemonstrated. No new greater than 5 mm nodules or masses. No ple ural effusion or pneumothorax seen. MEDIASTINUM: There are no new greater than 1 cm hilar or mediastinal lymph nodes. No cardiomegaly o r pericardial effusion is seen. Mild to moderate right ventricular dilatation redemonstrated Mild to moderate mixed plaque in aortic arch extending into descending thoracic aorta is redemonstrated. LIVER/GB: No significant abnormality is appreciated. PANCREAS: No significant abnormality is seen. SPLEEN: No significant abnormality is seen. ADRENALS: No significant abnormality is seen. KIDNEYS: Small central thin-walled cyst lower pole left kidney coronal image 55 is redemonstrated. Sy mmetric cortical medullary uptake and excretion without hydronephrosis seen bilaterally. There is per sist an approximate 2 x 1 cm cortical defect posterior aspect upper pole right kidney with slightly e xophytic component corresponding to site of prior treated neoplasm axial image 72 series 3. This is u nchanged in size and appearance from most recent CTs. BOWEL: Patient has little intra-abdominal fat making evaluation suboptimal. Oral contrast does not re ach colonic level also making evaluation suboptimal. Fluid-filled prominence of the right colon on cu rrent study. Overall no suspicious small or large bowel dilatation. GENITAL ORGANS: No gross abnormality seen. LYMPH NODES: No greater than 1cm abdominal or pelvic lymph nodes are appreciated. OSSEOUS STRUCTURES: Stable lytic lesions involving the lamina and lateral elements L4 level with surr ounding sclerosis, extension into the spinous process axial image 88 is redemonstrated unchanged from prior study. OTHER: Mild to moderate calcified plaque of the aorta extends into branch vessels. IMPRESSION: Stable posttreatment change posterior aspect upper pole right kidney. Stable suspected tr eated disease to the left L4 vertebra. No new or enlarging masses or adenopathy clearly seen to sugge st neoplastic progression.
== END | disposition home or self-care (01) ==
LOC: RADCTMAIN 11:05
PROVIDERS: ATTEND Internal Medicine Hematology & Oncology
DX: C64.9 Malignant neoplasm of unspecified kidney, except renal pelvis (principal)
CPT/HCPCS: 82565; 84520; 71260; 74177; Q9967

== ENCOUNTER → 2021-09-21 | Outpatient (CLI) | payer MEDICARE, OTHER ==
[2021-09-21 10:22] LABS: African American GFR (CKD) >90 (>60 ml/min/1.73 sqM); Blood Urea Nitrogen 37 mg/dL (9-20); Non-African American GFR(CKD) 86 (>60 ml/min/1.73 sqM)
--- NOTE | 2021-09-21 16:00 | CT ---
EXAMINATION TYPE: CT ChestAbdPelvis w con DATE OF EXAM: 09/21/2021 INDICATION: Renal cancer COMPARISON: 08/10/2021 CT DLP: 472.3 mGycm CONTRAST: Performed with Oral Contrast and with IV Contrast, patient injected with 70 mL of Isovue 300. TECHNIQUE: Axial images at 5 mm thick sections. Reconstructed images in the coronal plane. Delayed images through the kidneys. FINDINGS: CT CHEST: Portion of the thyroid visualized is normal. There is a punctate nodular density within the anterior left upper lung field. Series 5 image 31. Thi s was present previously. There is a 2.1 cm area of increased density within the posterior right lung base adjacent to the pleu ral margin. This is new from comparison. Series 5 image 60. No enlarged mediastinal or hilar adenopathy is evident. The ascending aorta diameter at the level of the main pulmonary artery is 3.3 cm. The main pulmonary artery diameter at the bifurcation is 2.[address] ABDOMEN: Liver: Normal Spleen: Normal Pancreas: Normal Adrenal glands: The adrenal glands are normal. Gallbladder: Normal Kidneys: There is hypodensity within the posterior superior pole right kidney. This could be related to the patient's neoplasm. A discrete mass is not evident. Consider pyelonephritis within the differe ntial.. No hydronephrosis is present. No cysts are present. Delayed images were obtained through t he kidneys, hypodense superior right renal finding is stable Aorta: Vascular calcification is within the aorta. Inferior vena cava: Normal. CT PELVIS: Loops of bowel within the abdomen and pelvis are normal. Some fecal debris is in the distal colon. There are loops of bowel which are incompletely distended or lack oral contrast limiting their evalu ation. Appendix: Not identified. No dilated tubular structure or inflammatory change evident. Urinary bladder: Normal. Genitourinary structures: Prostate appears normal Osseous structures: No suspicious lytic or sclerotic lesions. IMPRESSIONS: 1. Hypodensity within the superior pole right kidney could be related to the patient's neoplasm. Cons ider pyelonephritis within the differential. 2. New 2.1 cm density posterior right lung base along the pleural margin.
== END | disposition home or self-care (01) ==
LOC: RADCTMAIN 09:24
PROVIDERS: ATTEND Internal Medicine Hematology & Oncology
DX: C64.9 Malignant neoplasm of unspecified kidney, except renal pelvis (principal)
CPT/HCPCS: 82565; 84520; 71260; 74177; 36415; Q9967 ×2

== ENCOUNTER → 2021-12-21 | Outpatient (CLI) | payer MEDICARE, OTHER ==
[2021-12-21 09:59] LABS: African American GFR (CKD) >90 (>60 ml/min/1.73 sqM); Blood Urea Nitrogen 39 mg/dL (9-20); Non-African American GFR(CKD) 83 (>60 ml/min/1.73 sqM)
--- NOTE | 2021-12-21 12:23 | CT ---
EXAMINATION TYPE: CT ChestAbdPelvis w con DATE OF EXAM: 12/21/2021 COMPARISON: Most recent whole body CT September 21, 2021 and older CTs HISTORY: Renal cell ca CT DLP: 786 mGycm. Automated Exposure Control for Dose Reduction was Utilized. CONTRAST: CT scan of the thorax, abdomen and pelvis is performed with oral and with IV Contrast, patient inject ed with 70ml mL of Isovue 300. FINDINGS: LUNGS: Moderate underlying emphysematous change is redemonstrated. Stable posterior 5-6 mm nodule or nodular scarring left lower lobe seen best coronal image 67 current study. Stable focal linear scarri ng inferior lateral to this. Focal linear scarring posteriorly on axial image 56 is less prominent fr om prior. [id number] left greater than right bibasilar linear scarring and/or atelectasis is re demonstrated. No new spiculated nodule or nodular consolidation right lower lobe measuring 13 x 5 mm coronal image 47 should be closely followed is not as masslike on axial images. Nearly resolved poste rior right basilar masslike consolidation or atelectasis with mild residual linear scarring and/or at electasis at this level axial image 61 now identified. MEDIASTINUM: There are no new greater than 1 cm hilar or mediastinal lymph nodes. No cardiomegaly o r pericardial effusion is seen. Mild to moderate right ventricular dilatation is redemonstrated . Mil d to moderate mixed plaque in aortic arch extending into descending thoracic aorta is redemonstrated. LIVER/GB: No significant abnormality is appreciated. PANCREAS: No significant abnormality is seen. SPLEEN: No significant abnormality is seen. ADRENALS: No significant abnormality is seen. KIDNEYS: Small central thin-walled cyst lower pole left kidney coronal image 62 is redemonstrated. Sy mmetric cortical medullary uptake and excretion without hydronephrosis seen bilaterally. There is per sist an approximate 2 x 1 cm cortical defect posterior aspect upper pole right kidney with slightly e xophytic lateral component corresponding to site of prior treated neoplasm seen best delayed axial im age 17 series 9. This is unchanged in size and appearance from most recent CTs. BOWEL: Patient has little intra-abdominal fat making evaluation of the bowel suboptimal. Oral contras t does not reach colonic level also making evaluation suboptimal. Fluid-filled prominence of the righ t colon is redemonstrated. Overall no suspicious small or large bowel dilatation. GENITAL ORGANS: No gross abnormality seen. LYMPH NODES: No greater than 1cm abdominal or pelvic lymph nodes are appreciated. OSSEOUS STRUCTURES: Stable lytic lesions involving the lamina and lateral elements L4 level with surr ounding sclerosis, extension into the spinous process axial image 88 is redemonstrated unchanged from prior study. OTHER: Moderate calcified plaque of the aorta extends into branch vessels. IMPRESSION: Stable posttreatment change posterior aspect upper pole right kidney. Stable suspected tr eated disease to the left L4 vertebra. There is new right lower lobe 1.3 x 0.5 cm spiculated nodule o r nodular consolidation should be closely followed to rule out developing metastatic lesion. Otherwis e no significant change from most recent CT.
== END | disposition home or self-care (01) ==
LOC: RADCTMAIN 09:22
PROVIDERS: ATTEND Internal Medicine Hematology & Oncology
DX: C64.9 Malignant neoplasm of unspecified kidney, except renal pelvis (principal); R91.1 Solitary pulmonary nodule
CPT/HCPCS: 82565; 84520; 71260; 74177; 36415; Q9967

== ENCOUNTER 2022-01-26 14:30 | Inpatient (IN) | payer MEDICARE, OTHER ==
[2022-01-26] MEDS ORDERED: IPRATROPIUM-ALBUTEROL 3 ML NEB INHALATION STA (14:56)
[2022-01-26] MEDS ORDERED: methylPREDNISolone SOD SUCCI 125 MG/2 ML VIAL IV STA (14:57)
[2022-01-26 15:28] LABS: VBG PH 7.32 (7.31-7.41)
--- NOTE | 2022-01-26 15:28 | ED ---
SOB HPI - General Source: patient, family, EMS, RN notes reviewed Mode of arrival: EMS <Nadiya Aiken - Last Filed: 01/26/22 16:11> <Henry Mckay - Last Filed: 01/26/22 20:02> - General Chief Complaint: Shortness of Breath Stated Complaint: ETHAN Time Seen by Provider: 01/26/22 14:45 - History of Present Illness Initial Comments: Patient is a 76-year-old male presenting to the emergency room via EMS for worsening shortness of breath. He reports that he has been short of breath for approximately the last 3 weeks but has had increased shortness breath over the last 24 hours. He has required increase supplemental oxygen from 2L to3 L and gave himself two nebulized treatments prior to EMS arrival without any improvement in symptoms. He reports a nonproductive cough. He denies any changes in his chronic pedal/ankle edema. He denies any chest pain, abdominal pain, nausea, vomiting, changes in generalized weakness, fevers or chills. He has a past medical history significant for COPD with oxygen use at home along with r enal cell carcinoma with bone metastases. (Nadiya Aiken) - Related Data Home Medications Medication Instructions Recorded Confirmed Albuterol Sulfate [Proair Hfa] 2 puff INHALATION RT-Q6H PRN 08/07/13 01/26/22 Tiotropium 18 Mcg/Puff [Spiriva] 2 cap INHALATION RT-DAILY 08/07/13 01/26/22 Fluticasone/Vilanterol [Breo 1 puff INHALATION RT-DAILY 08/13/19 01/26/22 Ellipta 100-25 Mcg Inhaler] Cabozantinib S-Malate [Cabometyx] 40 mg PO DAILY 01/26/22 01/26/22 Cholecalciferol [Vitamin D3 (25 50 mcg PO DAILY 01/26/22 01/26/22 Mcg = 1000 Iu)] Levothyroxine Sodium [Levo-T] 75 mcg PO DAILY 01/26/22 01/26/22 Triamterene/Hydrochlorothiazid 1 cap PO DAILY 01/26/22 01/26/22 [Triamterene-Hctz 37.5-25 mg Cp] Allergies Allergy/AdvReac Type Severity Reaction Status Date / Time [place] Sprouts Allergy Swelling Verified 01/26/22 18:03 of lips Penicillins Allergy Anaphylaxis Verified 01/26/22 18:03 venom-honey bee Allergy Anaphylaxis Verified 01/26/22 18:03 [bee venom (honey bee)] Review of Systems ROS Other: All systems not noted in ROS Statement are negative. <Nadiya Aiken - Last Filed: 01/26/22 16:11> ROS Other: All systems not noted in ROS Statement are negative. <Henry Mckay - Last Filed: 01/26/22 20:02> ROS Statement: Those systems with pertinent positive or pertinent negative responses have been documented in the HPI. Past Medical History Past Medical History: Cancer, COPD Additional Past Medical History / Comment(s): renal mass, bone mets, patient is getting set up to have radiation on his spine (patient is unsure of site) History of Any Multi-Drug Resistant Organisms: None Reported Additional Past Surgical History / Comment(s): hemorroid Past Anesthesia/Blood Transfusion Reactions: No Reported Reaction Past Psychological History: Anxiety Smoking Status: Former smoker Past Alcohol Use History: Occasional Past Drug Use History: None Reported <Nadiya Aiken - Last Filed: 01/26/22 16:11> General Exam General appearance: alert, cachectic, other (mild tachypnea) Head exam: Present: atraumatic, normocephalic, normal inspection Eye exam: Present: normal appearance, PERRL, EOMI. Absent: scleral icterus, conjunctival injection, periorbital swelling ENT exam: Present: normal exam, mucous membranes moist Respiratory exam: Present: wheezes, decreased breath sounds, other (mild tachypnea with occasional pursed lipped breathing). Absent: respiratory distress, rales, rhonchi, stridor, accessory muscle use Cardiovascular Exam: Present: regular rate, normal rhythm, normal heart sounds. Absent: systolic murmur, diastolic murmur, rubs, gallop, clicks GI/Abdominal exam: Present: soft, normal bowel sounds. Absent: distended, tenderness, guarding, rebound, rigid Rectal exam: Present: deferred Extremities exam: Present: pedal edema (bilateral + 2) Back exam: Present: normal inspection Neurological exam: Present: alert, oriented X3, CN II-XII intact Psychiatric exam: Present: flat affect Skin exam: Present: warm, dry, intact, pallor. Absent: rash <Nabeel Aikena - Last Filed: 01/26/22 16:11> Course Vital Signs 01/26/22 01/26/22 01/26/22 14:37 14:44 15:39 Temperature Pulse Rate 99 90 Respiratory 24 20 Rate Blood Pressure 150/93 O2 Sat by Pulse 100 Oximetry 01/26/22 01/26/22 15:48 19:33 Temperature 98.1 F Pulse Rate 90 84 Respiratory 20 18 Rate Blood Pressure 114/68 O2 Sat by Pulse 95 Oximetry Medical Decision Making - Lab Data Result diagrams: 01/26/22 15:06 01/26/22 15:06 - Radiology Data Radiology results: report reviewed, image reviewed <AttilaNadiya - Last Filed: 01/26/22 16:11> - Lab Data Result diagrams: 01/26/22 15:06 01/26/22 15:06 <Henry Mckay - Last Filed: 01/26/22 20:02> - Medical Decision Making 76--old male presenting via EMS for progressively worsening shortness of breath with tachypnea and preseptal breathing upon arrival. No severe respiratory distress requiring greater than 3 L nasal cannula or nebulized treatments. Will continue supplemental oxygen and give dual nebulized treatment. Will obtain chest x-ray, EKG along with laboratory studies including CBC, CMP, troponin, proBNP, d-dimer, lactic acid, magnesium, venous blood gas, cephid-4 and blood cultures. Two-view chest x-ray image reviewed at and interpreted by myself showing no evidence of infiltrate or consolidation. Hyperinflation and purulent chest noted consistent with COPD. Venous blood gas reveal pH of 7.32 with elevated CO2 at 62. Awaiting response from IV steroids along with nebulized treatment. CBC pending, d-dimer pending proBNP blood cultures pending. CMP reveals dehydration with a BUN of 38 normal creatinine, bicarbonate elevated at 36 potassium sodium and chloride levels all normal. Troponin resulted at 0.53. EKG shows sinus rhythm with sinus arrhythmia no evidence of ST changes. Awaiting d- dimer results for further workup regarding pulmonary emboli prior to calling cardiology. Patient will require admission for hospitalization for trending of troponins along with COPD exacerbation. Patient resting comfortably without acute distress and stable with his son at the bedside. Case discussed with and transfer to Dr. Mckay for further evaluation of pending tests and disposition. (Nadiya Aiken) Patient care was signed out to me by previous shift provider, nurse practitioner Dana Aiken. Briefly, patient is a 76-year-old male brought in to the emergency department for shortness of breath. At signout labs resulted. CBC unremarkable. Metabolic panel is unremarkable. Coag panel is negative. Troponin was elevated at 0.521 which is above his baseline. BNP of 2000. Plan cyanosis to follow-up with pending d-dimer to determine further care and di sposition. D-dimer is elevated at 1.38. CT angiography shows no PE. There is an elevated troponin without any alternate reason for elevation. Patient's only complaint is shortness of breath. This concerned the patient suffering from non-ST segment elevation NV. Patient started on low-dose heparin and will be admitted consultation cardiology pulmonology. (Henry Mckay) - Lab Data Lab Results 01/26/22 01/26/22 01/26/22 Range/Units 15:06 15:06 15:06 WBC 10.5 (3.8-10.6) k/uL RBC 4.55 (4.30-5.90) m/uL Hgb 15.0 (13.0-17.5) gm/dL Hct 45.1 (39.0-53.0) % MCV 99.1 (80.0-100.0) fL MCH 32.9 (25.0-35.0) pg MCHC 33.2 (31.0-37.0) g/dL RDW 13.9 (11.5-15.5) % Plt Count 237 (150-450) k/uL MPV 9.2 Neutrophils % 77 % Lymphocytes % 15 % Monocytes % 6 % Eosinophils % 1 % Basophils % 1 % Neutrophils # 8.0 H (1.3-7.7) k/uL Lymphocytes # 1.6 (1.0-4.8) k/uL Monocytes # 0.6 (0-1.0) k/uL Eosinophils # 0.1 (0-0.7) k/uL Basophils # 0.1 (0-0.2) k/uL Hypochromasia Slight PT 10.6 (9.0-12.0) sec INR 1.0 (<1.2) APTT 25.2 (22.0-30.0) sec D-Dimer (<0.60) mg/L FEU VBG pH (7.31-7.41) VBG pCO2 (37-51) mmHg VBG HCO3 (24-28) mmol/L Sodium 141 (137-145) mmol/L Potassium 4.7 (3.5-5.1) mmol/L Chloride 100 (98-107) mmol/L Carbon Dioxide 36 H (22-30) mmol/L Anion Gap 5 mmol/L BUN 38 H (9-20) mg/dL Creatinine 0.76 (0.66-1.25) mg/dL Est GFR (CKD-EPI)AfAm >90 (>60 ml/min/1.73 sqM) Est GFR (CKD-EPI)NonAf 89 (>60 ml/min/1.73 sqM) Glucose 112 H (74-99) mg/dL Plasma Lactic Acid Jose (0.7-2.0) mmol/L Calcium 8.4 (8.4-10.2) mg/dL Magnesium 2.2 (1.6-2.3) mg/dL Total Bilirubin 0.6 (0.2-1.3) mg/dL AST 42 (17-59) U/L ALT 25 (4-49) U/L Alkaline Phosphatase 98 (38-126) U/L Troponin I (0.000-0.034) ng/mL NT-Pro-B Natriuret Pep pg/mL Total Protein 6.2 L (6.3-8.2) g/dL Albumin 3.6 (3.5-5.0) g/dL Influenza Type A (PCR) (Not Detectd) Influenza Type B (PCR) (Not Detectd) RSV (PCR) (Not Detectd) SARS-CoV-2 (PCR) (Not Detectd) 01/26/22 01/26/22 01/26/22 Range/Units 15:06 15:06 15:06 WBC (3.8-10.6) k/uL RBC (4.30-5.90) m/uL Hgb (13.0-17.5) gm/dL Hct (39.0-53.0) % MCV (80.0-100.0) fL MCH (25.0-35.0) pg MCHC (31.0-37.0) g/dL RDW (11.5-15.5) % Plt Count (150-450) k/uL MPV Neutrophils % % Lymphocytes % % Monocytes % % Eosinophils % % Basophils % % Neutrophils # (1.3-7.7) k/uL Lymphocytes # (1.0-4.8) k/uL Monocytes # (0-1.0) k/uL Eosinophils # (0-0.7) k/uL Basophils # (0-0.2) k/uL Hypochromasia PT (9.0-12.0) sec INR (<1.2) APTT (22.0-30.0) sec D-Dimer (<0.60) mg/L FEU VBG pH (7.31-7.41) VBG pCO2 (37-51) mmHg VBG HCO3 (24-28) mmol/L Sodium (137-145) mmol/L Potassium (3.5-5.1) mmol/L Chloride (98-107) mmol/L Carbon Dioxide (22-30) mmol/L Anion Gap mmol/L BUN (9-20) mg/dL Creatinine (0.66-1.25) mg/dL Est GFR (CKD-EPI)AfAm (>60 ml/min/1.73 sqM) Est GFR (CKD-EPI)NonAf (>60 ml/min/1.73 sqM) Glucose (74-99) mg/dL Plasma Lactic Acid Jose 1.8 (0.7-2.0) mmol/L Calcium (8.4-10.2) mg/dL Magnesium (1.6-2.3) mg/dL Total Bilirubin (0.2-1.3) mg/dL AST (17-59) U/L ALT (4-49) U/L Alkaline Phosphatase (38-126) U/L Troponin I 0.531 H* (0.000-0.034) ng/mL NT-Pro-B Natriuret Pep 2130 pg/mL Total Protein (6.3-8.2) g/dL Albumin (3.5-5.0) g/dL Influenza Type A (PCR) (Not Detectd) Influenza Type B (PCR) (Not Detectd) RSV (PCR) (Not Detectd) SARS-CoV-2 (PCR) (Not Detectd) 01/26/22 01/26/22 01/26/22 Range/Units 15:06 15:06 15:06 WBC (3.8-10.6) k/uL RBC (4.30-5.90) m/uL Hgb (13.0-17.5) gm/dL Hct (39.0-53.0) % MCV (80.0-100.0) fL MCH (25.0-35.0) pg MCHC (31.0-37.0) g/dL RDW (11.5-15.5) % Plt Count (150-450) k/uL MPV Neutrophils % % Lymphocytes % % Monocytes % % Eosinophils % % Basophils % % Neutrophils # (1.3-7.7) k/uL Lymphocytes # (1.0-4.8) k/uL Monocytes # (0-1.0) k/uL Eosinophils # (0-0.7) k/uL Basophils # (0-0.2) k/uL Hypochromasia PT (9.0-12.0) sec INR (<1.2) APTT (22.0-30.0) sec D-Dimer 1.38 H (<0.60) mg/L FEU VBG pH 7.32 (7.31-7.41) VBG pCO2 62 H (37-51) mmHg VBG HCO3 31 H (24-28) mmol/L Sodium (137-145) mmol/L Potassium (3.5-5.1) mmol/L Chloride (98-107) mmol/L Carbon Dioxide (22-30) mmol/L Anion Gap mmol/L BUN (9-20) mg/dL Creatinine (0.66-1.25) mg/dL Est GFR (CKD-EPI)AfAm (>60 ml/min/1.73 sqM) Est GFR (CKD-EPI)NonAf (>60 ml/min/1.73 sqM) Glucose (74-99) mg/dL Plasma Lactic Acid Jose (0.7-2.0) mmol/L Calcium (8.4-10.2) mg/dL Magnesium (1.6-2.3) mg/dL Total Bilirubin (0.2-1.3) mg/dL AST (17-59) U/L ALT (4-49) U/L Alkaline Phosphatase (38-126) U/L Troponin I (0.000-0.034) ng/mL NT-Pro-B Natriuret Pep pg/mL Total Protein (6.3-8.2) g/dL Albumin (3.5-5.0) g/dL Influenza Type A (PCR) Not Detected (Not Detectd) Influenza Type B (PCR) Not Detected (Not Detectd) RSV (PCR) Not Detected (Not Detectd) SARS-CoV-2 (PCR) Not Detected (Not Detectd) - EKG Data EKG Comments: EKG completed at 1605 interpreted by me shows sinus rhythm with sinus arrhythmi a, ventricular rate 93 bpm MS interval 157 ms, QRS duration 121 ms, QT/QTC 355/46 ms, PRT axes 92, 128, 89 (Nadiya Aiken) - Radiology Data Two-view chest x-ray impression by radiologist show severe emphysematous changes. Heart size normal. No evidence of infiltrate or atelectasis. (Nadiya Aiken) Disposition <Nadiya Aiken - Last Filed: 01/26/22 16:11> Decision Time: 20:02 <Henry Mckay - Last Filed: 01/26/22 20:02> Clinical Impression: NSTEMI (non-ST elevated myocardial infarction), COPD (chronic obstructive pulmonary disease) Disposition: ADMITTED IP TO THIS [facility] Condition: Serious Referrals: Brody Manzano MD [Primary Care Provider] - 1-2 days
--- NOTE | 2022-01-26 15:32 | XR ---
EXAMINATION TYPE: XR chest 2V DATE OF EXAM: 01/26/2022 COMPARISON: 08/07/2013 HISTORY: Shortness of breath TECHNIQUE: Frontal and lateral views of the chest are obtained. FINDINGS: Scattered senescent parenchymal changes noted. Hyperinflation compatible with COPD. No evidence for infiltrate. No evidence for atelectasis. Heart size is stable. Mediastinal structures are stable and grossly unremarkable. No evidence for hilar prominence. Degenerative changes dorsal spine. IMPRESSION: 1. Severe emphysematous changes noted.
[2022-01-26 15:43] LABS: ALT 25 U/L (4-49); AST 42 U/L (17-59); African American GFR (CKD) >90 (>60 ml/min/1.73 sqM); Albumin 3.6 g/dL (3.5-5.0); Alkaline Phosphatase 98 U/L (38-126); Anion Gap 5 mmol/L; Blood Urea Nitrogen 38 mg/dL (9-20); Calcium 8.4 mg/dL (8.4-10.2); Carbon Dioxide 36 mmol/L (22-30); Chloride 100 mmol/L (98-107); Glucose 112 mg/dL (74-99); Magnesium 2.2 mg/dL (1.6-2.3); Non-African American GFR(CKD) 89 (>60 ml/min/1.73 sqM); Potassium 4.7 mmol/L (3.5-5.1); Sodium 141 mmol/L (137-145); Total Bilirubin 0.6 mg/dL (0.2-1.3); Total Protein 6.2 g/dL (6.3-8.2)
[2022-01-26] MEDS ORDERED: SODIUM CHLORIDE 0.9% 1,000 ML IV STA (15:54)
[2022-01-26 15:56] LABS: Partial Thromboplastin Time 25.2 sec (22.0-30.0); Prothrombin Time 10.6 sec (9.0-12.0)
[2022-01-26 16:09] LABS: Basophils # (A) 0.1 k/uL (0-0.2); Basophils % (A) 1 %; Eosinophils # (A) 0.1 k/uL (0-0.7); Eosinophils % (A) 1 %; HCT 45.1 % (39.0-53.0); Hypochromasia Slight; Lymphocytes # (A) 1.6 k/uL (1.0-4.8); Lymphocytes % (A) 15 %; MCH 32.9 pg (25.0-35.0); MCHC 33.2 g/dL (31.0-37.0); MCV 99.1 fL (80.0-100.0); Mean Platelet Volume 9.2; Monocytes # (A) 0.6 k/uL (0-1.0); Monocytes % (A) 6 %; Neutrophils % (A) 77 %; Platelet Count 237 k/uL (150-450); RBC 4.55 m/uL (4.30-5.90); RDW 13.9 % (11.5-15.5); WBC 10.5 k/uL (3.8-10.6)
[2022-01-26] MEDS ORDERED: ASPIRIN 81 MG PO STA (17:14)
--- NOTE | 2022-01-26 19:14 | CT ---
EXAMINATION TYPE: CT angio chest DATE OF EXAM: 01/26/2022 COMPARISON: 12/21/2021 HISTORY: Difficulty breathing. CT DLP: 154.4 mGycm Automated exposure control for dose reduction was used. CONTRAST: Performed with IV Contrast, patient injected with 46ml mL of Isovue 370. Images obtained from the thoracic inlet to the diaphragm with the IV contrast. There are 3-D post pro cessed images. There is diffuse bullous pulmonary emphysema. There is no mediastinal adenopathy. There are no hilar masses. Thoracic aorta is atheromatous. No aneurysm. There is some coronary artery calcification. The heart size is normal. No pericardial effusion. There is coarse reticular interstitial infiltrate at the posterior lung bases. No pleural effusion or pneumothorax. No evidence of filling defect in the pulmonary arteries. The thoracic spine is intact. Sternum is int act. No compression fracture. The upper abdominal soft tissues are intact. IMPRESSION: No evidence of pulmonary embolism. There is some mild fibrotic changes and interstitial infiltrate at the lung bases which is increased compared to old exam. No suspicious pulmonary mass. Moderate pulmo nary emphysema.
[2022-01-26] MEDS ORDERED: HEPARIN SODIUM 1,000 UN/ML (10ML VL) IV ONE (19:57)
[2022-01-26] MEDS ORDERED: HEPARIN SODIUM 1,000 UN/ML (10ML VL) IV PRN (19:57)
[2022-01-26] MEDS ORDERED: NITROGLYCERIN SL TABS 0.4 MG TAB SUBLINGUAL PRN (19:58)
[2022-01-26] MEDS: IPRATROPIUM-ALBUTEROL 3 ML NEB INHALATION SCH (21:22)
[2022-01-26] MEDS: HEPARIN SOD,PORK IN 0.45% NACL 25,000 UNIT in 0.45% NACL 1 250ML.BAG IV SCH (22:40)
[2022-01-27] MEDS: IPRATROPIUM-ALBUTEROL 3 ML NEB INHALATION SCH ×7 (00:31→23:38)
[2022-01-27] MEDS: ASPIRIN 325 MG TAB PO SCH (08:42)
[2022-01-27 08:49] LABS: Chol/HDL Ratio 2.81 Ratio; LDL Cholesterol,Calculated 80.1 mg/dL (0.0-131.0)
[2022-01-27] MEDS: LEVOTHYROXINE 75 MCG TAB PO SCH (12:26)
[2022-01-27] MEDS: predniSONE 20 MG TAB PO SCH (12:26)
--- NOTE | 2022-01-27 13:04 | P.CNPUL ---
History of Present Illness Consult date: 01/27/22 Requesting physician: Brody Manzano Reason for consult: COPD Chief complaint: Shortness of breath History of present illness: This is a 76-year-old white male with history of severe end-stage COPD/e mphysema. Patient is familiar to my service, I have seen a regular basis for his underlying COPD which is severe and endstage. In addition to this the patient is known to have history of renal cell carcinoma, being followed by hematology/oncology, and didn't receive chemotherapy. Patient had bone metastasis from his renal cell carcinoma, and has been losing a significant amount of weight over the last one year. Patient was brought into the ER mostly with 2 weeks history of increased shortness of breath, intermittent episodes of cough, some wheezing, cough is productive with whitish phlegm, but no fever no chills no hemoptysis and no chest pain. CT angiogram of the chest showed no evidence of pulmonary embolism, it did show mild fibrotic changes, possible infiltrate at the lung bases. Chest x-ray mostly showed severe emphysema no clear-cut evidence of infiltrate on the chest x-ray. Patient was admitted, and this consult was initiated Review of Systems Constitutional: Significant weight loss over the last one year. 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, current Renal CA, hypothyroidism History of Any Multi-Drug Resistant Organisms: None Reported Additional Past Surgical History / Comment(s): hemorroid removal, oral surgeries Past Anesthesia/Blood Transfusion Reactions: No Reported Reaction Past Psychological History: No Psychological Hx Reported Smoking Status: Former smoker Past Alcohol Use History: Occasional Past Drug Use History: None Reported Medications and Allergies Home Medications Medication Instructions Recorded Confirmed Type Albuterol Sulfate [Proair Hfa] 2 puff INHALATION RT-Q6H PRN 08/07/13 01/26/22 History Tiotropium 18 Mcg/Puff [Spiriva] 2 cap INHALATION RT-DAILY 08/07/13 01/26/22 History Fluticasone/Vilanterol [Breo 1 puff INHALATION RT-DAILY 08/13/19 01/26/22 History Ellipta 100-25 Mcg Inhaler] Cabozantinib S-Malate [Cabometyx] 40 mg PO DAILY 01/26/22 01/26/22 History Cholecalciferol [Vitamin D3 (25 50 mcg PO DAILY 01/26/22 01/26/22 History Mcg = 1000 Iu)] Levothyroxine Sodium [Levo-T] 75 mcg PO DAILY 01/26/22 01/26/22 History Triamterene/Hydrochlorothiazid 1 cap PO DAILY 01/26/22 01/26/22 History [Triamterene-Hctz 37.5-25 mg Cp] Allergies Allergy/AdvReac Type Severity Reaction Status Date / Time [place] Sprouts Allergy Swelling Verified 01/26/22 18:03 of lips Penicillins Allergy Anaphylaxis Verified 01/26/22 18:03 venom-honey bee Allergy Anaphylaxis Verified 01/26/22 18:03 [bee venom (honey bee)] Physical Exam Vitals: Vital Signs Temp Pulse Pulse Resp BP BP Pulse Ox 01/27/22 12:00 85 16 111/56 98 01/27/22 11:58 88 01/27/22 11:47 88 01/27/22 08:33 80 01/27/22 08:19 78 99 01/27/22 08:00 88 16 107/71 100 01/27/22 04:02 92 01/27/22 03:52 90 01/27/22 03:08 97.9 F 98 16 166/89 94 L 01/27/22 00:37 91 01/27/22 00:31 84 01/26/22 21:57 97.6 F 98 16 134/83 98 01/26/22 21:34 77 01/26/22 21:22 76 01/26/22 20:21 98.2 F 70 16 115/72 96 01/26/22 19:33 98.1 F 84 18 114/68 95 01/26/22 15:48 90 20 01/26/22 15:39 90 20 01/26/22 14:44 24 01/26/22 14:37 99 150/93 100 Intake and Output 01/26/22 01/27/22 01/27/22 22:59 06:59 14:59 Intake Total 30.753 Output Total 175 Balance -144.247 Intake: Intake, IV Titration 30.753 Amount Heparin Sod,Pork in 0.45% 30.753 NaCl 25,000 unit In 0.45 % NaCl 1 250ml.bag @ 12 UNITS/KG/HR 5.443 mls/hr IV .Q24H [facility] Rx#: [id number] Output: Urine 175 Other: Voiding Method Diaper Diaper Diaper # Voids 1 Weight 45.359 kg 42.5 kg Physical Exam: Revealed a 76-year-old white male looks frail, cachectic, chronically ill, in no distress. Head: Atraumatic, normocephalic. HEENT:[Neck is supple.] [No neck masses.] [No thyromegaly.] [No JVD.] Chest: [Extremely diminished breath sound bilaterally, no crackles or rhonchi or wheezes Cardiac Exam: [Normal S1 and S2, no S3 gallop, no murmur.] Abdomen: [Soft, nontender, no megaly, no rebound, no guarding, normal bowel sounds.] Extremities: [No clubbing, no edema, no cyanosis.] Neurological Exam: Alert oriented 3. No gross focal deficits. [Psychiatric: Normal mood affect and normal No focal neurologic deficit.] Results - Laboratory Findings CBC and BMP: 01/26/22 15:06 01/26/22 15:06 PT/INR, D-dimer PT 10.6 sec (9.0-12.0) 01/26/22 15:06 INR 1.0 (<1.2) 01/26/22 15:06 D-Dimer 1.38 mg/L FEU (<0.60) H 01/26/22 15:06 Abnormal lab findings: Abnormal Labs 01/26/22 01/26/22 01/26/22 15:06 15:06 15:06 Neutrophils # 8.0 H APTT D-Dimer VBG pCO2 VBG HCO3 Carbon Dioxide 36 H BUN 38 H Glucose 112 H Troponin I 0.531 H* Total Protein 6.2 L Procalcitonin 01/26/22 01/26/22 01/26/22 15:06 15:06 20:25 Neutrophils # APTT D-Dimer 1.38 H VBG pCO2 62 H VBG HCO3 31 H Carbon Dioxide BUN Glucose Troponin I 0.512 H* Total Protein Procalcitonin 01/26/22 01/26/22 01/27/22 22:32 22:32 03:46 Neutrophils # APTT 49.8 H D-Dimer VBG pCO2 VBG HCO3 Carbon Dioxide BUN Glucose Troponin I 0.440 H* Total Protein Procalcitonin 0.23 H - Diagnostic Findings Chest x-ray: image reviewed (As noted in HPI) CT scan - chest: image reviewed (As noted in HPI) Assessment and Plan Assessment: Impression: Acute exacerbation of COPD Acute tracheobronchitis, doubt pneumonia Metastatic renal cell carcinoma, 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 Weight loss secondary to metastatic disease and underlying COPD. Elevated troponin, being addressed by cardiology, patient is presently on heparin will likely be discontinued by cardiology upon evaluation. Recommendation: Continue present course of bronchodilators. Continue oral prednisone. Continue antibiotics and the check pro calcitonin level. Resume home meds. GI and DVT prophylaxis. We'll continue to follow. Time with Patient: Greater than 30
--- NOTE | 2022-01-27 13:04 | P.CRDCN ---
History of Present Illness Consult date: 01/27/22 History of present illness: History of present illness: This is a 76-year-old male with past medical history of hypertension, COPD, chronic hypoxic respiratory failure on home O2 at 2 L nasal cannula, renal cell carcinoma on the care of Dr. Mcmillan. Patient states that for the past 1 week or longer he has had weakness, no appetite, shortness of breath, dizziness when he gets up, generalized weakness, cough. Patient denies any fever or chills. He states he has not had any food intake for the past 2 days. He has had a 10 pound weight loss over the past 10-14 days. The patient is seen today on the cardiac stepdown unit. Patient's son and daughter are at bedside and supine patient's information. EKG sinus rhythm. Chest x-rays reveal severe emphysematous change CTA of the chest reveals no evidence of pulmonary embolism. There is some mild fibrotic changes and interstitial infiltrate at the lung bases which is increased compared to old exam. No suspicious pulmonary mass. Moderate pulmonary emphysema. CBC was unremarkable. D-dimer 1.38. Venous pH 7.32, pCO2 62, bicarb 31. BUN 38 creatinine 0.76. Troponins 0.531, 0.512, 0.440. Triglycerides 70, chol esterol 146, LDL 80, HDL 51.9. Pro-calcitonin 0.23. Influenza a not detected. Influenza B not detected. RSV not detected. SARS Covid PCR not detected. Review Of Systems: Constitutional: No fever, no chills. Reports weakness, reports fatigue. EENT: No headache. No dizziness. Reports dental issues. Lungs: Reports shortness of breath, reports cough, no sputum production. No wheezing. Cardiovascular: No chest pain, no lower extremity edema. No palpitations. No paroxysmal nocturnal dyspnea. No orthopnea. Reports lightheadedness or dizziness. No syncopal episodes. Abdominal: No abdominal pain. No nausea, vomiting. No diarrhea. No constipation. No bloody or tarry stools.. Reports loss of appetite. Genitourinary: No dysuria.. No urinary retention. Musculoskeletal: No myalgias. No muscle weakness, no gait dysfunction, no frequent falls. No back pain. No neck pain. Integumentary: No wounds, no lesions. No rash or pruritus. No unusual bruising. Neurologic: No aphasia. No facial droop. No change in mentation. No head injury. No headache. No paralysis. No paresthesia. Psychiatric: No depression. No anxiety. Endocrine: No abnormal blood sugars. Physical examination: Gen: This is a thin cachectic appearing 76-year-old male. He is resting in bed and appears to be somewhat uncomfortable no acute distress is noted. VS: Patient has been afebrile, heart rate 85, blood pressure 111/56, pulse ox 98% on 2 L nasal cannula. HEENT: Head is atraumatic, normocephalic. Pupils equal, round. Sclerae is anicteric. Oral mucous membranes are dry. NECK: Supple. No JVD. No lymphadenopathy. No thyromegaly. LUNGS: Clear to auscultation. No wheezes or rhonchi. No intercostal retractions. HEART: Regular rate and rhythm. No murmur. ABDOMEN: Soft. Bowel sounds are present. No masses. No tenderness. EXTREMITIES: No pedal edema. No calf tenderness. NEUROLOGICAL: Patient is awake, alert and oriented x3. Cranial nerves 2 through 12 are grossly intact. Assessment: Elevated troponins of unclear etiology No active heart failure Renal cell carcinoma Significant weight loss Plan: Hold triamterenehydrochlorothiazide due to labile blood pressure readings and dehydration Obtain 2-D echocardiogram and Doppler study to assess cardiac structure and function Discussed option of undergoing cardiac catheterization on Saturday as the best definitive diagnostic testing versus chemical stress testing. Patient will be monitored closely and further plans made according to patient's progress and respiratory status. Thank you kindly for this consultation. Nurse practitioner note has been reviewed, I agree with documented findings and plan of care. Patient was seen and examined. 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, current Renal CA, hypothyroidism History of Any Multi-Drug Resistant Organisms: None Reported Additional Past Surgical History / Comment(s): hemorroid removal, oral surgeries Past Anesthesia/Blood Transfusion Reactions: No Reported Reaction Past Psychological History: No Psychological Hx Reported Smoking Status: Former smoker Past Alcohol Use History: Occasional Past Drug Use History: None Reported Medications and Allergies Home Medications Medication Instructions Recorded Confirmed Type Albuterol Sulfate [Proair Hfa] 2 puff INHALATION RT-Q6H PRN 08/07/13 01/26/22 History Tiotropium 18 Mcg/Puff [Spiriva] 2 cap INHALATION RT-DAILY 08/07/13 01/26/22 History Fluticasone/Vilanterol [Breo 1 puff INHALATION RT-DAILY 08/13/19 01/26/22 History Ellipta 100-25 Mcg Inhaler] Cabozantinib S-Malate [Cabometyx] 40 mg PO DAILY 01/26/22 01/26/22 History Cholecalciferol [Vitamin D3 (25 50 mcg PO DAILY 01/26/22 01/26/22 History Mcg = 1000 Iu)] Levothyroxine Sodium [Levo-T] 75 mcg PO DAILY 01/26/22 01/26/22 History Triamterene/Hydrochlorothiazid 1 cap PO DAILY 01/26/22 01/26/22 History [Triamterene-Hctz 37.5-25 mg Cp] Allergies Allergy/AdvReac Type Severity Reaction Status Date / Time [place] Sprouts Allergy Swelling Verified 01/26/22 18:03 of lips Penicillins Allergy Anaphylaxis Verified 01/26/22 18:03 venom-honey bee Allergy Anaphylaxis Verified 01/26/22 18:03 [bee venom (honey bee)] Physical Exam Vitals: Vital Signs Temp Pulse Pulse Resp BP BP Pulse Ox 01/27/22 08:33 80 01/27/22 08:19 78 99 01/27/22 08:00 88 16 107/71 100 01/27/22 04:02 92 01/27/22 03:52 90 01/27/22 03:08 97.9 F 98 16 166/89 94 L 01/27/22 00:37 91 01/27/22 00:31 84 01/26/22 21:57 97.6 F 98 16 134/83 98 01/26/22 21:34 77 01/26/22 21:22 76 01/26/22 20:21 98.2 F 70 16 115/72 96 01/26/22 19:33 98.1 F 84 18 114/68 95 01/26/22 15:48 90 20 01/26/22 15:39 90 20 01/26/22 14:44 24 01/26/22 14:37 99 150/93 100 Intake and Output 01/26/22 01/27/22 01/27/22 22:59 06:59 14:59 Intake Total 30.753 Output Total 175 Balance -144.247 Intake: Intake, IV Titration 30.753 Amount Heparin Sod,Pork in 0.45% 30.753 NaCl 25,000 unit In 0.45 % NaCl 1 250ml.bag @ 12 UNITS/KG/HR 5.443 mls/hr IV .Q24H [facility] Rx#: [id number] Output: Urine 175 Other: Voiding Method Diaper Diaper # Voids 1 Weight 45.359 kg 42.5 kg Results 01/28/22 06:35 01/28/22 06:35 Cardiac Enzymes 01/26/22 01/26/22 01/26/22 Range/Units 15:06 15:06 20:25 AST 42 (17-59) U/L Troponin I 0.531 H* 0.512 H* (0.000-0.034) ng/mL 01/26/22 Range/Units 22:32 AST (17-59) U/L Troponin I 0.440 H* (0.000-0.034) ng/mL Coagulation 01/26/22 01/27/22 Range/Units 15:06 03:46 PT 10.6 (9.0-12.0) sec APTT 25.2 49.8 H (22.0-30.0) sec Lipids 01/27/22 Range/Units 03:46 Triglycerides 70.00 (0.00-149.00) mg/dL Cholesterol 146.00 (0.00-200.00) mg/dL HDL Cholesterol 51.90 (40.00-60.00) mg/dL Cholesterol/HDL Ratio 2.81 Ratio CBC 01/26/22 Range/Units 15:06 WBC 10.5 (3.8-10.6) k/uL RBC 4.55 (4.30-5.90) m/uL Hgb 15.0 (13.0-17.5) gm/dL Hct 45.1 (39.0-53.0) % Plt Count 237 (150-450) k/uL Comprehensive Metabolic Panel 01/26/22 Range/Units 15:06 Sodium 141 (137-145) mmol/L Potassium 4.7 (3.5-5.1) mmol/L Chloride 100 (98-107) mmol/L Carbon Dioxide 36 H (22-30) mmol/L BUN 38 H (9-20) mg/dL Creatinine 0.76 (0.66-1.25) mg/dL Glucose 112 H (74-99) mg/dL Calcium 8.4 (8.4-10.2) mg/dL AST 42 (17-59) U/L ALT 25 (4-49) U/L Alkaline Phosphatase 98 (38-126) U/L Total Protein 6.2 L (6.3-8.2) g/dL Albumin 3.6 (3.5-5.0) g/dL Current Medications Generic Name Dose Route Start Last Admin Trade Name Freq PRN Reason Stop Dose Admin Albuterol/Ipratropium 3 ml 01/26/22 20:00 01/27/22 08:19 Ipratropium-Albuterol 3 Ml Neb INHALATION 3 ml RT-Q4H SAVANNAH Administration Aspirin 325 mg 01/27/22 09:00 01/27/22 08:42 Aspirin 325 Mg Tab PO 325 mg DAILY SAVANNAH Administration Budesonide/Formoterol Fumarate 2 puff 01/27/22 20:00 Symbicort 160-4.5 Mcg Inhaler INHALATION RT-BID SAVANNAH Heparin Sodium (Porcine) 0 unit 01/26/22 19:57 Heparin Sodium 1,000 Un/Ml (10ml Vl) IV PER PROTOCOL PRN Low PTT Protocol Heparin Sodium/Sodium Chloride 250 mls @ 5.443 mls/hr 01/26/22 20:00 01/27/22 04:19 25,000 unit/ Sodium Chloride IV 12 units/kg/hr .Q24H SAVANNAH 5.443 mls/hr Titration Protocol 12 UNITS/KG/HR Levothyroxine Sodium 75 mcg 01/27/22 10:15 Levothyroxine 75 Mcg Tab PO DAILY@0630 SAVANNAH Nitroglycerin 0.4 mg 01/26/22 19:58 Nitroglycerin Sl Tabs 0.4 Mg Tab SUBLINGUAL Q5M PRN Chest Pain Prednisone 40 mg 01/27/22 10:00 Prednisone 20 Mg Tab PO DAILY SAVANNAH Intake and Output 01/26/22 01/27/22 01/27/22 22:59 06:59 14:59 Intake Total 30.753 Output Total 175 Balance -144.247 Intake: Intake, IV Titration 30.753 Amount Heparin Sod,Pork in 0.45% 30.753 NaCl 25,000 unit In 0.45 % NaCl 1 250ml.bag @ 12 UNITS/KG/HR 5.443 mls/hr IV .Q24H [facility] Rx#: [id number] Output: Urine 175 Other: Voiding Method Diaper Diaper # Voids 1 Weight 45.359 kg 42.5 kg 01/26/22 15:06 01/26/22 15:06
[2022-01-27 13:06] VITALS: BMI 13.8
[2022-01-27] MEDS: SYMBICORT 160-4.5 MCG INHALER INHALATION SCH (20:05)
--- NOTE | 2022-01-27 22:04 | P.HPIM ---
History of Present Illness H&P Date: 01/27/22 Patient is a 76-year-old male with a known history of COPD on home oxygen, history of history of renal cell carcinoma with radiation to kidneys and June 2020, hypothyroidism and prior history of smoking presents to ER with complaints of worsening shortness of breath and weakness. Patient is somewhat poor historian. According to his son he has been having shortness of breath and getting weaker for the past 2 weeks unable to get out of bed by himself. He also felt dizzy and lightheaded. Patient does have renal cell carcinoma and did receive radiation. Metastatic to bones and has been losing weight. Denies any complaints of fever or chills. Cough with whitish sputum production. No nausea vomiting abdominal pain or diarrhea. No complaints of chest pain. Chest x-ray showed severe emphysematous changes noted. EKG showed sinus rhythm with sinus arrhythmia. Patient does have elevated D-dimer level. 1.38 CTA chest showed no evidence of PE. There is mild fibrotic changes and interstitial infiltrate at the lung bases which is increased compared to old exam. No suspicious pulmonary mass. Moderate pulmonary emphysema. WBC 10.5 hemoglobin 15.0 and platelets 237 and neutrophils 8.0 Sodium 141 potassium 4.7 chloride 100 bicarb is 36 BUN 38 and creatinine 0.76 Troponin 0.531, 0.512 and 0.440 proBNP 2130 Procalcitonin level 0.23 Coronavirus PCR not detected. 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, current Renal CA, hypothyroidism History of Any Multi-Drug Resistant Organisms: None Reported Additional Past Surgical History / Comment(s): hemorroid removal, oral surgeries Past Anesthesia/Blood Transfusion Reactions: No Reported Reaction Past Psychological History: No Psychological Hx Reported Smoking Status: Former smoker Past Alcohol Use History: Occasional Past Drug Use History: None Reported Medications and Allergies Home Medications Medication Instructions Recorded Confirmed Type Albuterol Sulfate [Proair Hfa] 2 puff INHALATION RT-Q6H PRN 08/07/13 01/26/22 History Tiotropium 18 Mcg/Puff [Spiriva] 2 cap INHALATION RT-DAILY 08/07/13 01/26/22 History Fluticasone/Vilanterol [Breo 1 puff INHALATION RT-DAILY 08/13/19 01/26/22 History Ellipta 100-25 Mcg Inhaler] Cabozantinib S-Malate [Cabometyx] 40 mg PO DAILY 01/26/22 01/26/22 History Cholecalciferol [Vitamin D3 (25 50 mcg PO DAILY 01/26/22 01/26/22 History Mcg = 1000 Iu)] Levothyroxine Sodium [Levo-T] 75 mcg PO DAILY 01/26/22 01/26/22 History Triamterene/Hydrochlorothiazid 1 cap PO DAILY 01/26/22 01/26/22 History [Triamterene-Hctz 37.5-25 mg Cp] Allergies Allergy/AdvReac Type Severity Reaction Status Date / Time [place] Sprouts Allergy Swelling Verified 01/26/22 18:03 of lips Penicillins Allergy Anaphylaxis Verified 01/26/22 18:03 venom-honey bee Allergy Anaphylaxis Verified 01/26/22 18:03 [bee venom (honey bee)] Physical Exam Vitals: Vital Signs Temp Pulse Pulse Resp BP Pulse Ox 01/27/22 20:16 82 01/27/22 20:05 81 01/27/22 19:43 77 16 127/60 98 01/27/22 16:00 74 16 121/66 98 01/27/22 15:56 84 01/27/22 15:44 84 01/27/22 12:00 85 16 111/56 98 01/27/22 11:58 88 01/27/22 11:47 88 01/27/22 08:33 80 01/27/22 08:19 78 99 01/27/22 08:00 88 16 107/71 100 01/27/22 04:02 92 01/27/22 03:52 90 01/27/22 03:08 97.9 F 98 16 166/89 94 L 01/27/22 00:37 91 01/27/22 00:31 84 Intake and Output 01/27/22 01/27/22 01/27/22 06:59 14:59 22:59 Intake Total 30.753 100 90 Output Total 175 Balance -144.247 100 90 Intake: Intake, IV Titration 30.753 Amount Heparin Sod,Pork in 0.45% 30.753 NaCl 25,000 unit In 0.45 % NaCl 1 250ml.bag @ 12 UNITS/KG/HR 5.443 mls/hr IV .Q24H [facility]PLAC[facility] Rx#: [id number] Oral 100 90 Output: Urine 175 Other: Voiding Method Diaper Diaper # Voids 1 Weight 42.5 kg 42.5 kg PHYSICAL EXAMINATION: Patient is lying in the bed comfortably, no acute distress, awake alert and oriented.. Cachectic and weak. HEENT: Normocephalic. Neck is supple. Pupils reactive. Nostrils clear. Oral cavity is moist. Neck reveals no JVD, carotid bruits, or thyromegaly. CHEST EXAMINATION: Trachea is central. Symmetrical expansion. Bibasilar diminished sounds and mild expiratory wheeze.. CARDIAC: Normal S1, S2 with no gallops. No murmurs ABDOMEN: Soft. Bowel sounds present. Nontender. No organomegaly. No abdominal bruits. Extremities: reveal no edema. No clubbing or cyanosis Neurologically awake, alert, oriented x3 with well-coordinated movements. No focal deficits noted Skin: No rash or skin lesions. Psychiatric: Coperative. Nonsuicidal, Musculoskeletal: No joint swelling or deformity. Normal range of motion. Results CBC & Chem 7: 01/26/22 15:06 01/26/22 15:06 Labs: Abnormal Lab Results - Last 24 Hours (Table) 01/26/22 01/26/22 01/27/22 Range/Units 22:32 22:32 03:46 APTT 49.8 H (22.0-30.0) sec Troponin I 0.440 H* (0.000-0.034) ng/mL Procalcitonin 0.23 H (0.02-0.09) ng/mL Microbiology - Last 24 Hours (Table) 01/26/22 15:06 Blood Culture - Preliminary Blood No Growth after 24 hours 01/26/22 15:06 Blood Culture - Preliminary Blood No Growth after 24 hours Thrombosis Risk Factor Assmnt - DVT/VTE Prophylaxis DVT/VTE Prophylaxis: Pharmacologic Prophylaxis ordered - Choose All That Apply Each Factor Represents 1 point: Abnormal pulmonary function (COPD) Each Risk Factor Represents 2 Points: Malignancy Each Risk Factor Represents 3 Points: Age 75 years or older Other congenital or acquired thrombophilia - If yes, enter type in comment: No Thrombosis Risk Factor Assessment Total Risk Factor Score: 6 Thrombosis Risk Factor Assessment Level: High Risk Assessment and Plan Assessment: Worsening shortness of breath secondary to acute COPD exacerbation Advanced COPD Elevated troponin level unlikely ACS. Renal cell carcinoma with bone metastasis and generalized weakness and weight loss. Moderate protein calorie malnutrition DVT prophylaxis. Plan: Patient will be continued on telemetry monitoring. Continue with oxygen supplementation Patient was given IV Solu-Medrol in the ER. Continue with prednisone 40 mg daily and duo nebs. Patient is being currently on heparin drip and cardiology is on board. Possible stress test versus cardiac catheterization. Prognosis is guarded at this time. Discussed with the patient and his family at bedside in detail. Time with Patient: Greater than 30
[2022-01-28] MEDS: HEPARIN SOD,PORK IN 0.45% NACL 25,000 UNIT in 0.45% NACL 1 250ML.BAG IV SCH ×2 (02:20→06:09)
[2022-01-28] MEDS: IPRATROPIUM-ALBUTEROL 3 ML NEB INHALATION SCH ×6 (03:15→23:14)
[2022-01-28] MEDS: LEVOTHYROXINE 75 MCG TAB PO SCH (06:09)
[2022-01-28 07:22] LABS: African American GFR (CKD) >90 (>60 ml/min/1.73 sqM); Anion Gap 1 mmol/L; Blood Urea Nitrogen 44 mg/dL (9-20); Calcium 7.5 mg/dL (8.4-10.2); Carbon Dioxide 37 mmol/L (22-30); Chloride 101 mmol/L (98-107); Glucose 111 mg/dL (74-99); Non-African American GFR(CKD) 86 (>60 ml/min/1.73 sqM); Potassium 4.5 mmol/L (3.5-5.1); Sodium 139 mmol/L (137-145)
[2022-01-28 07:41] LABS: Basophils % (A) 0 %; Eosinophils % (A) 0 %; HCT 36.9 % (39.0-53.0); Hypochromasia Slight; Lymphocytes # (A) 0.6 k/uL (1.0-4.8); Lymphocytes % (A) 9 %; MCH 31.7 pg (25.0-35.0); MCV 98.9 fL (80.0-100.0); Mean Platelet Volume 8.2; Monocytes # (A) 0.3 k/uL (0-1.0); Monocytes % (A) 5 %; Neutrophils # (A) 5.1 k/uL (1.3-7.7); Neutrophils % (A) 84 %; Platelet Count 234 k/uL (150-450); RBC 3.73 m/uL (4.30-5.90); RDW 14.2 % (11.5-15.5)
[2022-01-28 08:00] LABS: HGB 11.8 gm/dL (13.0-17.5)
[2022-01-28] MEDS ORDERED: NON FORMULARY DRUG (Fluticasone/Vilanterol [Breo Ellipta 100-25 Mcg Inhaler] 1 EACH Blst.W INHALATION SCH (08:00)
[2022-01-28] MEDS: SYMBICORT 160-4.5 MCG INHALER INHALATION SCH ×2 (08:56→20:42)
[2022-01-28] MEDS: ASPIRIN 325 MG TAB PO SCH (09:06)
[2022-01-28] MEDS: predniSONE 20 MG TAB PO SCH (09:06)
--- NOTE | 2022-01-28 12:00 | P.PN ---
Subjective Progress Note Date: 01/28/22 Principal diagnosis: Acute exacerbation of COPD This is a 76-year-old white male with history of severe end-stage COPD/emphysema. Patient is familiar to my service, I have seen a regular basis for his underlying COPD which is severe and endstage. In addition to this the patient is known to have history of renal cell carcinoma, being followed by hematology/oncology, and didn't receive chemotherapy. Patient had bone metastasis from his renal cell carcinoma, and has been losing a significant amount of weight over the last one year. Patient was brought into the ER mostly with 2 weeks history of increased shortness of breath, intermittent episodes of cough, some wheezing, cough is productive with whitish phlegm, but no fever no chills no hemoptysis and no chest pain. CT angiogram of the chest showed no evidence of pulmonary embolism, it did show mild fibrotic changes, possible infiltrate at the lung bases. Chest x-ray mostly showed severe emphysema no clear-cut evidence of infiltrate on the chest x-ray. Patient was admitted, and this consult was initiated Reevaluated today on 01/28/22, patient is basically about the same. Hardly any cough, no wheezing, patient does have shortness of breath, and his shortness of breath is rather chronic. Patient remains frail looking, chronically ill, and very cachectic. Labs today basically unremarkable, PTT is 49.5, hemoglobin is 11.8, basic metabolic profile is normal bicarb is 37. Objective - Vital Signs Vital signs: Vital Signs Temp 97.6 F 01/28/22 08:00 Pulse 96 01/28/22 09:11 Resp 16 01/28/22 08:00 BP 111/70 01/28/22 08:00 Pulse Ox 100 01/28/22 08:58 FiO2 Intake & Output 01/27/22 01/28/22 01/28/22 18:59 06:59 18:59 Intake Total 190 340.611 Output Total 350 Balance 190 -9.389 Weight 42.5 kg Intake: Intake, IV Titration 140.611 Amount Heparin Sod,Pork in 0.45% 140.611 NaCl 25,000 unit In 0.45 % NaCl 1 250ml.bag @ 12 UNITS/KG/HR 5.443 mls/hr IV .Q24H [facility] Rx#: [id number] Oral 190 200 Output: Urine 350 Other: Voiding Method Diaper Diaper Diaper # Voids 2 - Exam Physical Exam: Revealed a 76-year-old white male looks frail, cachectic, chronically ill, in no distress. Head: Atraumatic, normocephalic. HEENT:[Neck is supple.] [No neck masses.] [No thyromegaly.] [No JVD.] Chest: [Extremely diminished breath sound bilaterally, no crackles or rhonchi or wheezes Cardiac Exam: [Normal S1 and S2, no S3 gallop, no murmur.] Abdomen: [Soft, nontender, no megaly, no rebound, no guarding, normal bowel sounds.] Extremities: [No clubbing, no edema, no cyanosis.] Neurological Exam: Alert oriented 3. No gross focal deficits. [Psychiatric: Normal mood affect and normal No focal neurologic deficit.] - Labs CBC & Chem 7: 01/28/22 06:35 01/28/22 06:35 Labs: Abnormal Lab Results - Last 24 Hours (Table) 01/28/22 01/28/22 01/28/22 Range/Units 06:35 06:35 06:48 RBC 3.73 L (4.30-5.90) m/uL Hgb 11.8 L D (13.0-17.5) gm/dL Hct 36.9 L (39.0-53.0) % Lymphocytes # 0.6 L (1.0-4.8) k/uL APTT 49.5 H (22.0-30.0) sec Carbon Dioxide 37 H (22-30) mmol/L BUN 44 H (9-20) mg/dL Glucose 111 H (74-99) mg/dL Calcium 7.5 L (8.4-10.2) mg/dL Microbiology - Last 24 Hours (Table) 01/26/22 15:06 Blood Culture - Preliminary Blood No Growth after 24 hours 01/26/22 15:06 Blood Culture - Preliminary Blood No Growth after 24 hours Assessment and Plan Assessment: Impression: Acute exacerbation of COPD Acute tracheobronchitis, doubt pneumonia Metastatic renal cell carcinoma, 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 Weight loss secondary to metastatic disease and underlying COPD. Elevated troponin, being addressed by cardiology, patient is presently on heparin will likely be discontinued by cardiology upon evaluation. Recommendation: Continue present course of bronchodilators. Continue oral prednisone. Continue antibiotics, pro-calcitonin level is slightly elevated at 0.23, GI and DVT prophylaxis. Overall prognosis is extremely poor in the oil [place]. We'll continue to follow. Time with Patient: Less than 30
[2022-01-28] MEDS ORDERED: ATORVASTATIN 80 MG TAB PO STA (13:43)
[2022-01-28] MEDS ORDERED: NITROGLYCERIN SL TABS 0.4 MG TAB SUBLINGUAL PRN (13:43)
[2022-01-28] MEDS ORDERED: ALPRAZolam 0.5 MG TAB PO PRN (13:43)
[2022-01-28] MEDS ORDERED: ALPRAZolam 0.25 MG TAB PO PRN (13:43)
[2022-01-28] MEDS ORDERED: ASPIRIN 325 MG TAB PO STA (13:43)
--- NOTE | 2022-01-28 15:16 | P.PN ---
Subjective Progress Note Date: 01/28/22 History of present illness: This is a 76-year-old male with past medical history of hypertension, COPD, ch ronic hypoxic respiratory failure on home O2 at 2 L nasal cannula, renal cell carcinoma on the care of Dr. Mcmillan. Patient states that for the past 1 week or longer he has had weakness, no appetite, shortness of breath, dizziness when he gets up, generalized weakness, cough. Patient denies any fever or chills. He states he has not had any food intake for the past 2 days. He has had a 10 pound weight loss over the past 10-14 days. The patient is seen today on the cardiac stepdown unit. Patient's son and daughter are at bedside and supine patient's information. EKG sinus rhythm. Chest x-rays reveal severe emphysematous change CTA of the chest reveals no evidence of pulmonary embolism. There is some mild fibrotic changes and interstitial infiltrate at the lung bases which is increased compared to old exam. No suspicious pulmonary mass. Moderate pulmonary emphysema. CBC was unremarkable. D-dimer 1.38. Venous pH 7.32, pCO2 62, bicarb 31. BUN 38 creatinine 0.76. Troponins 0.531, 0.512, 0.440. Triglycerides 70, cholesterol 146, LDL 80, HDL 51.9. Pro-calcitonin 0.23. Influenza a not detected. Influenza B not detected. RSV not detected. SARS Covid PCR not detected. 01/28: Patient states that his breathing is easier today. He denies having any chest pain. He states he is able to move and do more for himself today such as using his arms. He has significant dyspnea with minimal exertion. Discussed with patient option of cardiac catheterization which he is willing to move forward and this will be scheduled tomorrow. Physical examination: Gen: This is a thin cachectic appearing 76-year-old male. He is resting in bed and appears to be somewhat uncomfortable no acute distress is noted. VS: Patient has been afebrile, heart rate 80s and 90s, blood pressure 110/56, pulse ox 100% on 2 L nasal cannula. HEENT: Head is atraumatic, normocephalic. Pupils equal, round. Sclerae is anicteric. Oral mucous membranes are dry. NECK: Supple. No JVD. No lymphadenopathy. No thyromegaly. LUNGS: Diminished bilaterally. No wheezes or rhonchi. No intercostal retract ions. HEART: Regular rate and rhythm. No murmur. ABDOMEN: Soft. Bowel sounds are present. No masses. No tenderness. EXTREMITIES: No pedal edema. No calf tenderness. NEUROLOGICAL: Patient is awake, alert and oriented x3. Cranial nerves 2 through 12 are grossly intact. Assessment: Elevated troponins of unclear etiology No active heart failure Renal cell carcinoma Significant weight loss of 10 pounds over 10-14 days (weight loss of 167 lbs since 07/2019) Plan: Hold triamterenehydrochlorothiazide due to labile blood pressure readings and dehydration Obtain 2-D echocardiogram and Doppler study to assess cardiac structure and function Patient will be scheduled for cardiac catheterization on Saturday. Thank you kindly for this consultation. Nurse practitioner note has been reviewed, I agree with documented findings and plan of care. Patient was seen and examined. Objective - Vital Signs Vital signs: Vital Signs Temp 97.6 F 01/28/22 08:00 Pulse 88 01/28/22 12:55 Resp 16 01/28/22 12:00 BP 110/56 01/28/22 12:00 Pulse Ox 100 01/28/22 12:00 FiO2 Intake & Output 01/27/22 01/28/22 01/28/22 18:59 06:59 18:59 Intake Total 190 340.611 Output Total 350 Balance 190 -9.389 Weight 42.5 kg Intake: Intake, IV Titration 140.611 Amount Heparin Sod,Pork in 0.45% 140.611 NaCl 25,000 unit In 0.45 % NaCl 1 250ml.bag @ 12 UNITS/KG/HR 5.443 mls/hr IV .Q24H [facility] Rx#: [id number] Oral 190 200 Output: Urine 350 Other: Voiding Method Diaper Diaper Diaper # Voids 2 - Labs CBC & Chem 7: 01/28/22 06:35 01/28/22 06:35 Labs: Abnormal Lab Results - Last 24 Hours (Table) 01/28/22 01/28/22 01/28/22 Range/Units 06:35 06:35 06:48 RBC 3.73 L (4.30-5.90) m/uL Hgb 11.8 L D (13.0-17.5) gm/dL Hct 36.9 L (39.0-53.0) % Lymphocytes # 0.6 L (1.0-4.8) k/uL APTT 49.5 H (22.0-30.0) sec Carbon Dioxide 37 H (22-30) mmol/L BUN 44 H (9-20) mg/dL Glucose 111 H (74-99) mg/dL Calcium 7.5 L (8.4-10.2) mg/dL Microbiology - Last 24 Hours (Table) 01/26/22 15:06 Blood Culture - Preliminary Blood No Growth after 24 hours 01/26/22 15:06 Blood Culture - Preliminary Blood No Growth after 24 hours
[2022-01-28] MEDS ORDERED: NON FORMULARY DRUG (Cabozantinib S-Malate [Cabometyx] 40 MG Tablet) PO SCH (23:00)
--- NOTE | 2022-01-28 23:36 | P.PN ---
Subjective Progress Note Date: 01/28/22 Patient is a 76-year-old male with a known history of COPD on home oxygen, history of history of renal cell carcinoma with radiation to kidneys and June 2020, hypothyroidism and prior history of smoking presents to ER with complaints of worsening shortness of breath and weakness. Patient is somewhat poor historian. According to his son he has been having shortness of breath and getting weaker for the past 2 weeks unable to get out of bed by himself. He also felt dizzy and lightheaded. Patient does have renal cell carcinoma and did receive radiation. Metastatic to bones and has been losing weight. Denies any complaints of fever or chills. Cough with whitish sputum production. No nausea vomiting abdominal pain or diarrhea. No complaints of chest pain. Chest x-ray showed severe emphysematous changes noted. EKG showed sinus rhythm with sinus arrhythmia. Patient does have elevated D-dimer level. 1.38 CTA chest showed no evidence of PE. There is mild fibrotic changes and interstitial infiltrate at the lung bases which is increased compared to old exam. No suspicious pulmonary mass. Moderate pulmonary emphysema. WBC 10.5 hemoglobin 15.0 and platelets 237 and neutrophils 8.0 Sodium 141 potassium 4.7 chloride 100 bicarb is 36 BUN 38 and creatinine 0.76 Troponin 0.531, 0.512 and 0.440 proBNP 2130 Procalcitonin level 0.23 Coronavirus PCR not detected. 01/29/2020 Patient is currently lying in bed. Awake alert and oriented. Breathing status is about the same. No complaints of chest pain. No nausea vomiting abdominal pain or diarrhea. Otherwise patient looks cachectic and pale. Laboratory pressure WBC 6.0 hemoglobin 9.8 and platelets 234 Sodium 139 potassium 4.5 chloride 101 bicarb 37 BUN 44 and creatinine 0.12 calcium 7.5 and TSH elevated 0.506. Patient is being continued on heparin drip. Prednisone 40 mg daily and duo nebs and Symbicort. Cardiology and pulmonary is on board. Current medications reviewed. Objective - Vital Signs Vital signs: Vital Signs Temp 97.6 F 01/28/22 08:00 Pulse 85 01/28/22 16:00 Resp 16 01/28/22 16:00 BP 126/69 01/28/22 16:00 Pulse Ox 100 01/28/22 16:00 FiO2 Intake & Output 01/27/22 01/28/22 01/28/22 18:59 06:59 18:59 Intake Total 190 340.611 236 Output Total 350 200 Balance 190 -9.389 36 Weight 42.5 kg Intake: Intake, IV Titration 140.611 Amount Heparin Sod,Pork in 0.45% 140.611 NaCl 25,000 unit In 0.45 % NaCl 1 250ml.bag @ 12 UNITS/KG/HR 5.443 mls/hr IV .Q24H SAVANNAH Rx#: [id number] Oral 190 200 236 Output: Urine 350 200 Other: Voiding Method Diaper Diaper Diaper # Voids 2 - Exam PHYSICAL EXAMINATION: Patient is lying in the bed comfortably, no acute distress, awake alert and orie nted.. Cachectic and weak. HEENT: Normocephalic. Neck is supple. Pupils reactive. Nostrils clear. Oral cavity is moist. Neck reveals no JVD, carotid bruits, or thyromegaly. CHEST EXAMINATION: Trachea is central. Symmetrical expansion. Bibasilar diminished sounds and mild expiratory wheeze.. CARDIAC: Normal S1, S2 with no gallops. No murmurs ABDOMEN: Soft. Bowel sounds present. Nontender. No organomegaly. No abdominal bruits. Extremities: reveal no edema. No clubbing or cyanosis Neurologically awake, alert, oriented x3 with well-coordinated movements. No focal deficits noted Skin: No rash or skin lesions. Psychiatric: Coperative. Nonsuicidal, Musculoskeletal: No joint swelling or deformity. Normal range of motion. - Labs CBC & Chem 7: 01/28/22 06:35 01/28/22 06:35 Labs: Abnormal Lab Results - Last 24 Hours (Table) 01/28/22 01/28/22 01/28/22 Range/Units 06:35 06:35 06:48 RBC 3.73 L (4.30-5.90) m/uL Hgb 11.8 L D (13.0-17.5) gm/dL Hct 36.9 L (39.0-53.0) % Lymphocytes # 0.6 L (1.0-4.8) k/uL APTT 49.5 H (22.0-30.0) sec Carbon Dioxide 37 H (22-30) mmol/L BUN 44 H (9-20) mg/dL Glucose 111 H (74-99) mg/dL Calcium 7.5 L (8.4-10.2) mg/dL Microbiology - Last 24 Hours (Table) 01/26/22 15:06 Blood Culture - Preliminary Blood No Growth after 24 hours 01/26/22 15:06 Blood Culture - Preliminary Blood No Growth after 24 hours Assessment and Plan Assessment: Worsening shortness of breath secondary to acute COPD exacerbation Advanced COPD Elevated troponin level Possible NSTEMI. Renal cell carcinoma with bone metastasis and generalized weakness and weight loss. Moderate protein calorie malnutrition DVT prophylaxis. Plan: Patient will be continued on telemetry monitoring. Continue with oxygen supplementation Patient was given IV Solu-Medrol in the ER. Continue with prednisone 40 mg daily and duo nebs. Patient is being currently on heparin drip and cardiology is on board. Patient is scheduled for cardiac catheterization. Prognosis is guarded at this time. Discussed with the patient and his family at bedside in detail. Time with Patient: Greater than 30
[2022-01-29] MEDS: IPRATROPIUM-ALBUTEROL 3 ML NEB INHALATION SCH ×4 (03:43→17:05)
[2022-01-29] MEDS: LEVOTHYROXINE 75 MCG TAB PO SCH (06:21)
[2022-01-29] MEDS: ASPIRIN 325 MG TAB PO SCH (06:35)
[2022-01-29] MEDS: predniSONE 20 MG TAB PO SCH (06:35)
[2022-01-29] MEDS ORDERED: HEPARIN SODIUM,PORCINE 2,500 UNIT in SODIUM CHLORIDE 0.9% 250 ML IRRIGATION PRN (07:00)
[2022-01-29] MEDS ORDERED: HEPARIN SODIUM,PORCINE 10,000 UNIT in SODIUM CHLORIDE 0.9% 1,000 ML IRRIGATION PRN (07:00)
[2022-01-29] MEDS ORDERED: IV FLUID CONTINUATION 500 ML IV ONE (07:45)
[2022-01-29] MEDS ORDERED: fentaNYL (PF) 50 MCG/ML 2 ML AMP IV ONE (07:56)
[2022-01-29] MEDS ORDERED: MIDAZOLAM 2 MG/2 ML VIAL IV ONE (07:56)
[2022-01-29] MEDS: SYMBICORT 160-4.5 MCG INHALER INHALATION SCH (07:57)
[2022-01-29] MEDS ORDERED: LIDOCAINE 1% INJ 10MG/ML (30 ML VIAL-PF) SQ ONE (07:57)
[2022-01-29] MEDS: VERAPAMIL SYRINGE (5 MG/10 ML) INTRAARTER ONE ×2 (07:58→08:00)
[2022-01-29] MEDS ORDERED: HEPARIN SODIUM 1,000 UN/ML (10ML VL) IV ONE (08:00)
[2022-01-29] MEDS ORDERED: IOPAMIDOL-370 125ML BTL INJ ONE (08:07)
[2022-01-29] MEDS ORDERED: SODIUM CHLORIDE 0.9% 500 ML 500 ML IV ONE (08:08)
--- NOTE | 2022-01-29 08:12 | P.CARDCATH ---
Description of Procedure: PROCEDURES PERFORMED: Left heart catheterization, bilateral coronary angiography INDICATION: Non-STEMI CONSENT:I have discussed the risks, benefits and alternative therapies for the above-mentioned procedure and for both sedation/analgesia as well as necessary blood product administration, if indicated, as they pertain to this patient. The patient has indicated understanding and acceptance of the risks and procedures discussed. PROCEDURE: After the risks, benefits and alternatives of the above mentioned procedure explained in detail with the patient, informed consent was obtained. Patient was taken to the catheterization lab and prepped and draped in usual fashion. 1% lidocaine was used to anesthetize the right radial artery. A 6- Maltese sheath was placed in the right radial artery using modified Seldinger technique. Left coronary angiography was performed with a 5-Maltese JL 3.5 catheter and right coronary angiography was performed with a 5-Maltese JR5 catheter in various views. A 5-Maltese FR5 catheter was inserted into the left ventricle and pressure measurements were obtained. The right radial sheath was removed and a TR band was placed with hemostasis achieved. The patient tolerated the procedure well. Patient was transported back to the post catheterization holding area in stable condition. Conscious Sedation: Patient was monitored under the direct supervision of vision of myself for conscious sedation using Versed and fentanyl for a total duration of 17 minutes HEMODYNAMICS: Aortic: 126/63 LV: 125/2, LVEDP 2 SELECTIVE CORONARY ARTERIOGRAPHY: LEFT MAIN: The left main is a large caliber vessel which bifurcates into the LAD and circumflex. There is no significant stenosis. LEFT ANTERIOR DESCENDING CORONARY ARTERY: LAD is a large caliber vessel which wraps around to the apex. There are mild luminal irregularities of the LAD. LEFT CIRCUMFLEX CORONARY ARTERY: Left circumflex is a moderate caliber vessel without significant stenosis. RIGHT CORONARY ARTERY: The right coronary artery is a large caliber vessel which gives off a PDA and PLV branch and is the dominant vessel. There are mild tended 20% luminal irregularities of the RCA. FINAL IMPRESSION: 1. Relatively normal coronary arteries as described above with only mild luminal irregularities. 2. Low left sided filling pressures PLAN: 1. Aggressive risk factor modification per most recent ACC/AHA guidelines. 2. Low LVEDP and would recommend hold home diuretics going home.
[2022-01-29 10:21] VITALS: TEMP 98.1
--- NOTE | 2022-01-29 12:09 | P.PN ---
Subjective Progress Note Date: 01/29/22 HISTORY OF PRESENT ILLNESS: This is a 76-year-old male with past medical history of hypertension, COPD, chronic hypoxic respiratory failure on home O2 at 2 L nasal cannula, renal cell carcinoma on the care of Dr. Mcmillan. Patient states that for the past 1 week or longer he has had weakness, no appetite, shortness of breath, dizziness when he gets up, generalized weakness, cough. Patient denies any fever or chills. He states he has not had any food intake for the past 2 days. He has had a 10 pound weight loss over the past 10-14 days. The patient is seen today on the cardiac stepdown unit. Patient's son and daughter are at bedside and supine patient's information. EKG sinus rhythm. Chest x-rays reveal severe emphysematous change CTA of the chest reveals no evidence of pulmonary embolism. There is some mild fibrotic changes and interstitial infiltrate at the lung bases which is increased compared to old exam. No suspicious pulmonary mass. Moderate pulmonary emphysema. CBC was unremarkable. D-dimer 1.38. Venous pH 7.32, pCO2 62, bicarb 31. BUN 38 creatinine 0.76. Troponins 0.531, 0.512, 0.440. Triglycerides 70, cholesterol 146, LDL 80, HDL 51.9. Pro-calcitonin 0.23. Influenza a not detected. Influenza B not detected. RSV not detected. SARS Covid PCR not detected. 01/28: Patient states that his breathing is easier today. He denies having any chest pain. He states he is able to move and do more for himself today such as using his arms. He has significant dyspnea with minimal exertion. Discussed with patient option of cardiac catheterization which he is willing to move forward and this will be scheduled tomorrow. 01/29/2022 Patient examined this morning at the bedside. He is status post cardiac catheterization today with Dr. Quinonez revealing relatively normal coronary arteries with only mild luminal irregularities. Low left-sided filling pressures. Patient denies any chest pain or pressure. Denies shortness of cecil th. Patient was found to have a low LVEDP and recommendation was to hold diuretics at time of discharge PHYSICAL EXAM: VITAL SIGNS: Reviewed. GENERAL: Well-developed in no acute distress. NECK: Supple. No JVD or thyromegaly LUNGS: Respirations even and unlabored. Lungs essentially clear to auscultation bilaterally. HEART: Regular rate and rhythm. S1 and S2 heard. EXTREMITIES: Normal range of motion. No clubbing or cyanosis. Peripheral pulses intact. No lower extremity edema ASSESSMENT: Elevated troponins of unclear etiology, as well as cardiac cath revealing normal coronary arteries Renal cell carcinoma Significant weight loss of 10 pounds over 10-14 days (weight loss of 167 lbs since 07/2019) PLAN: Hold diuretics going home secondary to low LVEDP found on cardiac catheterization Await results of 2-D echo Patient may be discharged home today from a cardiac standpoint with close outpatient follow-up Nurse practitioner note has been reviewed by physician. Signing provider agrees with the documented findings, assessment, and plan of care. Objective - Vital Signs Vital signs: Vital Signs Temp 98.1 F 01/29/22 08:30 Pulse 75 01/29/22 11:50 Resp 16 01/29/22 10:20 BP 134/72 01/29/22 10:50 Pulse Ox 100 01/29/22 11:37 FiO2 Intake & Output 01/28/22 01/29/22 01/29/22 18:59 06:59 18:59 Intake Total 236 250 300 Output Total 200 300 150 Balance 36 -50 150 Intake: IV 300 Oral 236 250 0 Output: Urine 200 300 150 Other: Voiding Method Diaper Urinal Urinal Diaper Diaper # Voids 2 1 - Labs CBC & Chem 7: 01/28/22 06:35 01/28/22 06:35 Labs: Microbiology - Last 24 Hours (Table) 01/26/22 15:06 Blood Culture - Preliminary Blood No Growth after 48 hours 01/26/22 15:06 Blood Culture - Preliminary Blood No Growth after 48 hours
[2022-01-29 12:29] LABS: African American GFR (CKD) >90 (>60 ml/min/1.73 sqM); Anion Gap 4 mmol/L; Blood Urea Nitrogen 51 mg/dL (9-20); Calcium 7.9 mg/dL (8.4-10.2); Carbon Dioxide 36 mmol/L (22-30); Chloride 101 mmol/L (98-107); Glucose 91 mg/dL (74-99); Non-African American GFR(CKD) >90 (>60 ml/min/1.73 sqM); Potassium 4.5 mmol/L (3.5-5.1); Sodium 141 mmol/L (137-145)
--- NOTE | 2022-01-29 12:45 | CA ---
Transthoracic Echo Report Name: David Lucero Age: 76 Gender: M : 1945 Exam Date: 01/29/2022 09:04 Exam Location: [facility] Ht (in): 65 Wt (lb): 93 Ordering Physician: Ashley Antoine Attending/Referring Phys: [id number], Elina Physician Interventional Cardiologist Veronica Smith RDCS Procedure CPT: Indications: LVF Cardiac Hx: Technical Quality: Contrast 1: N/A Total Dose (mL): Contrast 2: Total Dose (mL): MEASUREMENTS (Male / Female) Normal Values 2D ECHO LV Diastolic Diameter PLAX 3.8 cm 4.2 - 5.9 / 3.9 - 5.3 cm LV Systolic Diameter PLAX 2.7 cm IVS Diastolic Thickness 0.9 cm 0.6 - 1.0 / 0.6 - 0.9 cm LVPW Diastolic Thickness 1.1 cm 0.6 - 1.0 / 0.6 - 0.9 cm LV Relative Wall Thickness 0.5 RV Internal Dim ED PLAX 3.2 cm LA Systolic Diameter LX 2.5 cm 3.0 - 4.0 / 2.7 - 3.8 cm M-MODE Aortic Root Diameter MM 3.1 cm AV Cusp Separation MM 1.4 cm DOPPLER MV Area PHT 3.0 cm??? Mitral E Point Velocity 54.6 cm/s Mitral A Point Velocity 66.4 cm/s Mitral E to A Ratio 0.8 MV Deceleration Time 253.3 ms MV E' Velocity 4.7 cm/s Mitral E to MV E' Ratio 11.7 TR Peak Velocity 286.9 cm/s TR Peak Gradient 32.9 mmHg FINDINGS Left Ventricle Left ventricular ejection fraction is estimated at 55-60 %.left ventricular cavity size normal. Right Ventricle Normal right ventricular size and function. Right Atrium Normal right atrial size. Left Atrium Normal left atrial size. Mitral Valve Mitral valve thickened. Mild mitral regurgitation. Aortic Valve Trileaflet aortic valve. Tricuspid Valve Structurally normal tricuspid valve. mild tricuspid regurgitation. Pulmonic Valve Moderate pulmonic regurgitation.pulmonic valve thickened with good excursion. Pericardium Normal pericardium. Aorta Normal size aortic root and proximal ascending aorta. CONCLUSIONS 1. Normal left ventricle size and systolic function 2. Mild mitral, tricuspid and moderate pulmonic regurgitation. Previewed by: Dr. Calvin Campbell MD (Electronically Signed) Final Date: 29 January 2022 12:45
--- NOTE | 2022-01-29 15:55 | P.PN ---
Subjective Progress Note Date: 01/29/22 Principal diagnosis: Shortness of breath. Acute exacerbation of COPD This is a 76-year-old white male with history of severe end-stage COPD/emphysema. Patient is familiar to my service, I have seen a regular basis for his underlying COPD which is severe and endstage. In addition to this the patient is known to have history of renal cell carcinoma, being followed by hematology/oncology, and didn't receive chemotherapy. Patient had bone metastasis from his renal cell carcinoma, and has been losing a significant amount of weight over the last one year. Patient was brought into the ER mostly with 2 weeks history of increased shortness of breath, intermittent episodes of cough, some wheezing, cough is productive with whitish phlegm, but no fever no chills no hemoptysis and no chest pain. CT angiogram of the chest showed no evidence of pulmonary embolism, it did show mild fibrotic changes, possible infiltrate at the lung bases. Chest x-ray mostly showed severe emphysema no clear-cut evidence of infiltrate on the chest x-ray. Patient was admitted, and this consult was initiated Reevaluated today on 01/28/22, patient is basically about the same. Hardly any cough, no wheezing, patient does have shortness of breath, and his shortness of breath is rather chronic. Patient remains frail looking, chronically ill, and very cachectic. Labs today basically unremarkable, PTT is 49.5, hemoglobin is 11.8, basic metabolic profile is normal bicarb is 37. Progress note dated 01/29/2022. The patient is seen today in room 362. Currently, he is on 2 L of oxygen. He is not receiving any IV fluids. He had a cardiac catheterization today, and his coronaries were mostly normal. The patient's feeling much better. The patient could be considered for possible discharge in the near future. Laboratory data today includes a sodium 141, potassium 4.5, chlorides 101, CO2 36, BUN 51, and creatinine 0.68. Blood cultures are negative 2. No recent chest x-ray to r eport. Objective - Vital Signs Vital signs: Vital Signs Temp 98.1 F 01/29/22 08:30 Pulse 75 01/29/22 11:50 Resp 16 01/29/22 11:35 BP 124/64 01/29/22 11:35 Pulse Ox 100 01/29/22 11:37 FiO2 Intake & Output 01/28/22 01/29/22 01/29/22 18:59 06:59 18:59 Intake Total 236 250 540 Output Total 200 300 300 Balance 36 -50 240 Intake: IV 300 Oral 236 250 240 Output: Urine 200 300 300 Other: Voiding Method Diaper Urinal Urinal Diaper Diaper # Voids 2 1 - Exam No acute distress, oriented 3. Currently on 2 L of oxygen. No audible wheezing, or use of accessory muscles. HEENT examination is grossly unremarkable. Neck supple. Full range of motion. No adenopathy thyromegaly or neck vein distention. Cardiovascular examination reveals regular rhythm rate. S1-S2 normal. No S3 or S4. No discernible murmur noted. Heart rate 75 bpm. Heart sounds are distant. Lungs reveal scattered mild rhonchi. No wheezes or crackles. Breath sounds are equal bilaterally. Breath sounds are diminished throughout. Abdomen soft bowel sounds are heard. No masses or tenderness. Extremities are intact. No cyanosis clubbing or edema. Skin is without rash or lesion. Neurologic examination is brief but nonfocal. - Labs CBC & Chem 7: 01/28/22 06:35 01/29/22 11:19 Labs: Abnormal Lab Results - Last 24 Hours (Table) 01/29/22 Range/Units 11:19 Carbon Dioxide 36 H (22-30) mmol/L BUN 51 H (9-20) mg/dL Calcium 7.9 L (8.4-10.2) mg/dL Microbiology - Last 24 Hours (Table) 01/26/22 15:06 Blood Culture - Preliminary Blood No Growth after 48 hours 01/26/22 15:06 Blood Culture - Preliminary Blood No Growth after 48 hours Assessment and Plan Assessment: Acute exacerbation of COPD, and a patient with stage IV disease. Chronic hypoxemic respiratory failure. Acute tracheobronchitis, doubt pneumonia. 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 Weight loss secondary to metastatic disease. Cardiac catheterization, revealing relatively normal coronary arteries. Plan: Plan dated 01/29/2022. The patient's doing reasonably well. Patient's currently on Symbicort, and updrafts. The patient is taking prednisone 40 mg a day. The patient had a cardiac catheterization, and was found to have relatively normal coronary arteries. The primary service's sake about possible discharge. The patient should follow-up with his primary care physician, and his warehouse loader. Additional recommendations and suggestions are forthcoming. Labs, x-rays, and medications are all reviewed. Time with Patient: Less than 30
[2022-01-29 17:38] VITALS: BP 123/67; PULSE 84; RESP 18
--- NOTE | 2022-01-29 22:24 | P.DS ---
Providers Date of admission: 01/26/22 19:58 Attending physician: Benson Camacho Consults: 01/26/22 19:58 Consult Physician Routine Consulting Provider: Nila Sanz Consult Reason/Comments: copd Do you want consulting provider notified?: Yes Consult Physician Urgent Consulting Provider: Uziel Quinonez Consult Reason/Comments: nstemi Do you want consulting provider notified?: Yes Primary care physician: [facility] Hospital Course: Ecchymoses: Worsening shortness of breath secondary to acute COPD exacerbation Advanced COPD Elevated troponin level . With normal coronary arteries on cardiac cath Renal cell carcinoma with bone metastasis and generalized weakness and weight loss. Follow-up with Dr. Mcmillan as an outpatient Moderate protein calorie malnutrition Hospital course: Patient is a 76-year-old male with a known history of COPD on home oxygen, history of history of renal cell carcinoma with radiation to kidneys and June 2020, hypothyroidism and prior history of smoking presents to ER with complaints of worsening shortness of breath and weakness. . Discharge on tapered his steroids Patient found to have COPD exacerbation and he was treated with steroids and finishes course of antibiotic. Patient has been evaluated and cleared for discharge by the pulmonary team today. Of note patient was on oral prednisone since 01/27 Also had relatively normal cardiac cath and outsole flexer feet him for discharge. Hold diuretics upon discharge per outsole flexer No other GI or urinary complaints Patient was cleared for discharge by outsole flexer and content development manager Problems and management plan were discussed with the patient and he verbalized understanding and acceptance Patient was found stable and can be discharged home in guarded prognosis however he needs follow-up as an outpatient. Patient was instructed to follow up with PCP Dr. Bernardo within one week and patient agrees Patient was instructed to follow up with his outsole flexer Dr. uQinonez in 1 week, content development manager Dr. Larios in one week and oncologist Dr. Mcmillan in one week. Patient requesting staff to help him with the appointments Physical exam Gen: patient is a AAOx3, no distress CVS: S1-S2, RRR, no murmur Lungs: B/L CTA, no wheezing Abdomen: soft, no distention, no tenderness, positive bowel sounds Extremity: no leg edema or induration Time spent more than 35 minutes Patient Condition at Discharge: Serious Plan - Discharge Summary Discharge Rx Participant: No New Discharge Prescriptions: New Albuterol Inhaler [Ventolin Hfa Inhaler] 1 - 2 puff INHALATION Q6H PRN #1 each PRN Reason: Shortness Of Breath Or Wheezing predniSONE 10 mg PO DIRECTED #40 tab Budesonide-Formot 160-4.5 Mcg [Symbicort 160-4.5 Mcg Inhaler] 2 puff INHALATION RT-BID #1 each Continue Tiotropium 18 Mcg/Puff [Spiriva] 2 cap INHALATION RT-DAILY Albuterol Sulfate [Proair Hfa] 2 puff INHALATION RT-Q6H PRN PRN Reason: shortness of breath Fluticasone/Vilanterol [Breo Ellipta 100-25 Mcg Inhaler] 1 puff INHALATION RT-DAILY Cabozantinib S-Malate [Cabometyx] 40 mg PO DAILY Levothyroxine Sodium [Levo-T] 75 mcg PO DAILY Cholecalciferol [Vitamin D3 (25 Mcg = 1000 Iu)] 50 mcg PO DAILY Discontinued Triamterene/Hydrochlorothiazid [Triamterene-Hctz 37.5-25 mg Cp] 1 cap PO DAILY Discharge Medication List Albuterol Sulfate [Proair Hfa] 2 puff INHALATION RT-Q6H PRN 08/07/13 [History] Tiotropium 18 Mcg/Puff [Spiriva] 2 cap INHALATION RT-DAILY 08/07/13 [History] Fluticasone/Vilanterol [Breo Ellipta 100-25 Mcg Inhaler] 1 puff INHALATION RT- DAILY 08/13/19 [History] Cabozantinib S-Malate [Cabometyx] 40 mg PO DAILY 01/26/22 [History] Cholecalciferol [Vitamin D3 (25 Mcg = 1000 Iu)] 50 mcg PO DAILY 01/26/22 [History] Levothyroxine Sodium [Levo-T] 75 mcg PO DAILY 01/26/22 [History] Albuterol Inhaler [Ventolin Hfa Inhaler] 1 - 2 puff INHALATION Q6H PRN #1 each 01/29/22 [Rx] Budesonide-Formot 160-4.5 Mcg [Symbicort 160-4.5 Mcg Inhaler] 2 puff INHALATION RT-BID #1 each 01/29/22 [Rx] predniSONE 10 mg PO DIRECTED #40 tab 01/29/22 [Rx] Follow up Appointment(s)/Referral(s): Nila Sanz MD [STAFF PHYSICIAN] - 02/07/22 3:15 pm [place] Mcmillan MD [STAFF PHYSICIAN] - 02/07/22 11:00 am (Please keep already scheduled appointment. ) Uziel Quinonez DO [STAFF PHYSICIAN] - 02/06/22 4:30 pm Brody Manzano MD [Primary Care Provider] - 02/06/22 11:00 am Patient Instructions/Handouts: Heart Attack (DC), COPD (Chronic Obstructive Pulmonary Disease) (DC), After Radial Heart Catheterization (GEN) Activity/Diet/Wound Care/Special Instructions: Heart healthy diet activity is restricted till you see your doctor Discharge Disposition: HOME WITH HOME HEALTH SERVICES
== END 2022-01-29 19:01 | disposition home health service (06) | DRG 191 ==
LOC: EC 14:30 → 3SCARD 19:58
PROVIDERS: ADMIT Hospitalist; ATTEND Hospitalist
PROC: B2111ZZ Fluoroscopy of Multiple Coronary Arteries using Low Osmolar Contrast (ICD-10-PCS; 2022-01-29)
PROC: 4A023N7 Measurement of Cardiac Sampling and Pressure, Left Heart, Percutaneous Approach (ICD-10-PCS; principal; 2022-01-29 11:00)
DX: J43.9 Emphysema, unspecified (principal); C64.9 Malignant neoplasm of unspecified kidney, except renal pelvis; C79.51 Secondary malignant neoplasm of bone; E44.0 Moderate protein-calorie malnutrition; J96.11 Chronic respiratory failure with hypoxia; Z68.1 Body mass index [BMI] 19.9 or less, adult; R79.89 Other specified abnormal findings of blood chemistry; Z20.822 Contact with and (suspected) exposure to COVID-19; J20.9 Acute bronchitis, unspecified; E86.0 Dehydration; I08.1 Rheumatic disorders of both mitral and tricuspid valves; I37.1 Nonrheumatic pulmonary valve insufficiency; E03.9 Hypothyroidism, unspecified; I10 Essential (primary) hypertension; Z79.890 Hormone replacement therapy; Z85.528 Personal history of other malignant neoplasm of kidney; Z87.891 Personal history of nicotine dependence; Z99.81 Dependence on supplemental oxygen; Z88.0 Allergy status to penicillin; Z91.030 Bee allergy status; Z91.018 Allergy to other foods; Z87.19 Personal history of other diseases of the digestive system
CPT/HCPCS: 36415; 71046; 71275; 80048; 80053; 80061; 82803; 83605; 83735; 83880; 84145; 84443; 84484; 85025; 85379; 85610; 85730; 87040; 87636; 93005; 93306; 93458; 94640; 94760; 96361; 96374; 99285

== ENCOUNTER 2022-03-07 10:59 | Inpatient (IN) | payer MEDICARE, OTHER ==
[2022-03-07] MEDS ORDERED: ALBUTEROL NEBULIZED 2.5 MG/3 ML INHALATION STA (12:11)
[2022-03-07] MEDS ORDERED: IPRATROPIUM 0.5 MG/2.5 ML NEBU INHALATION STA (12:11)
--- NOTE | 2022-03-07 12:11 | ED ---
General Adult HPI - General Chief complaint: Shortness of Breath Stated complaint: SOB Time Seen by Provider: 03/07/22 11:02 Source: patient, EMS Mode of arrival: EMS - History of Present Illness Initial comments: Dictation was produced using VILOOP dictation software. please excuse any grammatical, word or spelling errors. 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 He wears 3 L nasal cannula oxygen home O2. Patient has been having worsening shortness of breath for the last 4-5 days. His present illness obtained mostly from son who is in the medical field. Patient has been having nasal congestion and shortness of breath. They called EMS. EMS reports the patient was hypoxic upon initial evaluation is given a breathing treatment and transported to the ER. Patient states he feels slightly improved after the breathing treatment. Patient denies any abdominal pain. No chest pain. No history of blood clots. He does have a history of thyroid cancer and kidney cancer. No history of heart failure. He does have chronic pitting edema to the bilateral lower extremities. Son reports the patient had a cardiac catheterization last month is unremarkable. The ROS documented in this emergency department record has been reviewed and confirmed by me. Those systems with pertinent positive or negative responses have been documented in the HPI. All other systems are other negative and/or noncontributory. PHYSICAL EXAM: General Impression: Alert and oriented x3, not in acute distress HEENT: Normocephalic atraumatic, extra-ocular movements intact, pupils equal and reactive to light bilaterally, mucous membranes moist. Cardiovascular: Heart regular rate and rhythm Chest: Poor air exchange, diffuse crackles throughout the lung lowe Abdomen: abdomen soft, non-tender, non-distended, no organomegaly Musculoskeletal: Pulses present and equal in all extremities, 4+ pitting edema. Motor: no focal deficits noted Neurological: CN II-XII grossly intact, no focal motor or sensory deficits noted Skin: Intact with no visualized rashes Psych: Normal affect and mood ED course: 76-year-old male presents to the emergency department for shortness of breath. Patient has end-stage COPD. Vital signs upon arrival shows findings within acceptable limits. He is oxygen is 99% on 4 L nasal cannula. Nursing notes and chart review was performed EKG interpreted by me: Ventricular rate 97, sinus rhythm,. Interval 146, QS 118, QTC 426. No RI prolongation, no QTC prolongation, no ST or T-wave changes noted. EKG compared to 01/27/2022 showing no changes. Overall, this EKG is unremarkable Laboratory evaluation obtained. CBC marked. Venous blood gas shows hypercarbia with pCO2 of 97 pH of 7.31 a bicarb of 48. Metabolic panel shows signs of renal compensation without acidosis. Cardiac labs are negative. For panel viral PCR is negative per chest x-ray is nonacute. Patient given breathing treatment and rebound at bedside with improvement of symptoms however he still doesn't. Slightly dyspneic. Given patient's degree of COPD history he will be admitted with consultation pulmonology, around the clock breathing treatments, medical monitoring and steroid menstruation. Will be admitted to [facility] hospitalist group. Clinical care time 33 minutes - Related Data Home Medications Medication Instructions Recorded Confirmed Albuterol Sulfate [Proair Hfa] 2 puff INHALATION RT-Q6H PRN 08/07/13 03/07/22 Tiotropium 18 Mcg/Puff [Spiriva] 2 cap INHALATION RT-DAILY 08/07/13 03/07/22 Fluticasone/Vilanterol [Breo 1 puff INHALATION RT-DAILY 08/13/19 03/07/22 Ellipta 100-25 Mcg Inhaler] Cabozantinib S-Malate [Cabometyx] 40 mg PO DAILY 01/26/22 03/07/22 Cholecalciferol [Vitamin D3 (25 50 mcg PO DAILY 01/26/22 03/07/22 Mcg = 1000 Iu)] Levothyroxine Sodium [Levo-T] 75 mcg PO DAILY 01/26/22 03/07/22 Potassium Chloride ER [K-Dur 20] 20 meq PO THFRSA 03/07/22 03/07/22 Triamterene/Hydrochlorothiazid 1 tab PO THFRSA 03/07/22 03/07/22 [Triamterene-Hctz 37.5-25 mg Tb] Allergies Allergy/AdvReac Type Severity Reaction Status Date / Time [place] Sprouts Allergy Swelling Verified 03/07/22 13:02 of lips Penicillins Allergy Anaphylaxis Verified 03/07/22 13:02 venom-honey bee Allergy Anaphylaxis Verified 03/07/22 13:02 [bee venom (honey bee)] Review of Systems ROS Statement: Those systems with pertinent positive or pertinent negative responses have been documented in the HPI. ROS Other: All systems not noted in ROS Statement are negative. 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, current Renal CA, hypothyroidism History of Any Multi-Drug Resistant Organisms: None Reported Additional Past Surgical History / Comment(s): hemorroid removal, oral surgeries Past Anesthesia/Blood Transfusion Reactions: No Reported Reaction Past Psychological History: No Psychological Hx Reported Smoking Status: Former smoker Past Alcohol Use History: Occasional Past Drug Use History: None Reported Course Vital Signs 03/07/22 03/07/22 11:00 11:24 Temperature 98.1 F Pulse Rate 109 H 106 H Respiratory 22 26 H Rate Blood Pressure 191/96 175/87 O2 Sat by Pulse 99 92 L Oximetry Medical Decision Making - Lab Data Result diagrams: 03/07/22 12:18 03/07/22 12:18 Lab Results 03/07/22 03/07/22 03/07/22 Range/Units 11:36 12:18 12:18 WBC 7.8 (3.8-10.6) k/uL RBC 3.68 L (4.30-5.90) m/uL Hgb 12.1 L (13.0-17.5) gm/dL Hct 37.4 L (39.0-53.0) % MCV 101.7 H (80.0-100.0) fL MCH 32.8 (25.0-35.0) pg MCHC 32.2 (31.0-37.0) g/dL RDW 14.9 (11.5-15.5) % Plt Count 394 (150-450) k/uL MPV 8.8 Neutrophils % 47 % Lymphocytes % 44 % Monocytes % 5 % Eosinophils % 1 % Basophils % 0 % Neutrophils # 3.6 (1.3-7.7) k/uL Lymphocytes # 3.4 (1.0-4.8) k/uL Monocytes # 0.4 (0-1.0) k/uL Eosinophils # 0.1 (0-0.7) k/uL Basophils # 0.0 (0-0.2) k/uL Hypochromasia Marked Poikilocytosis Slight Macrocytosis Slight VBG pH (7.31-7.41) VBG pCO2 (37-51) mmHg VBG HCO3 (24-28) mmol/L Sodium 139 (137-145) mmol/L Potassium 4.1 (3.5-5.1) mmol/L Chloride 91 L (98-107) mmol/L Carbon Dioxide 46 H* (22-30) mmol/L Anion Gap 2 mmol/L BUN 21 H (9-20) mg/dL Creatinine 0.60 L (0.66-1.25) mg/dL Est GFR (CKD-EPI)AfAm >90 (>60 ml/min/1.73 sqM) Est GFR (CKD-EPI)NonAf >90 (>60 ml/min/1.73 sqM) Glucose 99 (74-99) mg/dL Calcium 7.2 L (8.4-10.2) mg/dL Total Bilirubin 0.7 (0.2-1.3) mg/dL AST 39 (17-59) U/L ALT 22 (4-49) U/L Alkaline Phosphatase 76 (38-126) U/L Troponin I (0.000-0.034) ng/mL NT-Pro-B Natriuret Pep pg/mL Total Protein 5.1 L (6.3-8.2) g/dL Albumin 2.8 L (3.5-5.0) g/dL Influenza Type A (PCR) Not Detected (Not Detectd) Influenza Type B (PCR) Not Detected (Not Detectd) RSV (PCR) Not Detected (Not Detectd) SARS-CoV-2 (PCR) Not Detected (Not Detectd) 03/07/22 03/07/22 03/07/22 Range/Units 12:18 12:18 12:37 WBC (3.8-10.6) k/uL RBC (4.30-5.90) m/uL Hgb (13.0-17.5) gm/dL Hct (39.0-53.0) % MCV (80.0-100.0) fL MCH (25.0-35.0) pg MCHC (31.0-37.0) g/dL RDW (11.5-15.5) % Plt Count (150-450) k/uL MPV Neutrophils % % Lymphocytes % % Monocytes % % Eosinophils % % Basophils % % Neutrophils # (1.3-7.7) k/uL Lymphocytes # (1.0-4.8) k/uL Monocytes # (0-1.0) k/uL Eosinophils # (0-0.7) k/uL Basophils # (0-0.2) k/uL Hypochromasia Poikilocytosis Macrocytosis VBG pH 7.31 (7.31-7.41) VBG pCO2 97 H* (37-51) mmHg VBG HCO3 48 H (24-28) mmol/L Sodium (137-145) mmol/L Potassium (3.5-5.1) mmol/L Chloride (98-107) mmol/L Carbon Dioxide (22-30) mmol/L Anion Gap mmol/L BUN (9-20) mg/dL Creatinine (0.66-1.25) mg/dL Est GFR (CKD-EPI)AfAm (>60 ml/min/1.73 sqM) Est GFR (CKD-EPI)NonAf (>60 ml/min/1.73 sqM) Glucose (74-99) mg/dL Calcium (8.4-10.2) mg/dL Total Bilirubin (0.2-1.3) mg/dL AST (17-59) U/L ALT (4-49) U/L Alkaline Phosphatase (38-126) U/L Troponin I <0.012 (0.000-0.034) ng/mL NT-Pro-B Natriuret Pep 608 pg/mL Total Protein (6.3-8.2) g/dL Albumin (3.5-5.0) g/dL Influenza Type A (PCR) (Not Detectd) Influenza Type B (PCR) (Not Detectd) RSV (PCR) (Not Detectd) SARS-CoV-2 (PCR) (Not Detectd) Disposition Clinical Impression: COPD exacerbation Disposition: ADMITTED IP TO THIS HOSP Condition: Fair Referrals: Brody Manzano MD [Primary Care Provider] - 1-2 days Decision Time: 13:41
[2022-03-07 12:31] LABS: Basophils % (A) 0 %; Eosinophils # (A) 0.1 k/uL (0-0.7); Eosinophils % (A) 1 %; HCT 37.4 % (39.0-53.0); HGB 12.1 gm/dL (13.0-17.5); Hypochromasia Marked; Lymphocytes # (A) 3.4 k/uL (1.0-4.8); Lymphocytes % (A) 44 %; MCH 32.8 pg (25.0-35.0); MCHC 32.2 g/dL (31.0-37.0); MCV 101.7 fL (80.0-100.0); Macrocytosis Slight; Mean Platelet Volume 8.8; Monocytes # (A) 0.4 k/uL (0-1.0); Monocytes % (A) 5 %; Neutrophils # (A) 3.6 k/uL (1.3-7.7); Neutrophils % (A) 47 %; Platelet Count 394 k/uL (150-450); Poikilocytosis Slight; RBC 3.68 m/uL (4.30-5.90); RDW 14.9 % (11.5-15.5); WBC 7.8 k/uL (3.8-10.6)
[2022-03-07 12:51] LABS: VBG PH 7.31 (7.31-7.41)
[2022-03-07 13:10] LABS: ALT 22 U/L (4-49); AST 39 U/L (17-59); African American GFR (CKD) >90 (>60 ml/min/1.73 sqM); Albumin 2.8 g/dL (3.5-5.0); Alkaline Phosphatase 76 U/L (38-126); Blood Urea Nitrogen 21 mg/dL (9-20); Calcium 7.2 mg/dL (8.4-10.2); Chloride 91 mmol/L (98-107); Glucose 99 mg/dL (74-99); Non-African American GFR(CKD) >90 (>60 ml/min/1.73 sqM); Potassium 4.1 mmol/L (3.5-5.1); Sodium 139 mmol/L (137-145); Total Bilirubin 0.7 mg/dL (0.2-1.3); Total Protein 5.1 g/dL (6.3-8.2)
--- NOTE | 2022-03-07 13:12 | XR ---
EXAMINATION TYPE: XR chest 2V DATE OF EXAM: 03/07/2022 COMPARISON: 01/26/2022 INDICATION: Dyspnea TECHNIQUE: Frontal and lateral views of the chest are obtained. FINDINGS: The heart size is normal. The pulmonary vasculature is normal. Small left pleural effusion is present. Minimal right pleural effusion is present. There is hyperinfl ation flat diaphragms compatible with COPD. Increased retrosternal airspace is present.. IMPRESSION: 1. Small left and minimal right pleural effusions. 2. COPD
[2022-03-07 13:16] LABS: Anion Gap 2 mmol/L
[2022-03-07] MEDS ORDERED: DEXAMETHASONE SOD PHOSPHATE 10 MG/ML 1 ML VIAL IVP STA (13:20)
[2022-03-07 13:22] LABS: Carbon Dioxide 46 mmol/L (22-30)
[2022-03-07] MEDS ORDERED: NALOXONE 0.4 MG/ML 1 ML VIAL IVP PRN (13:38)
[2022-03-07] MEDS ORDERED: ALBUTEROL NEB (CONC) 2.5 MG/0.5 ML INHALATION STA (13:51)
[2022-03-07] MEDS: AZITHROMYCIN 500 MG TAB PO SCH (14:53)
[2022-03-07] MEDS ORDERED: ALBUTEROL NEBULIZED 2.5 MG/3 ML INHALATION PRN (15:31)
[2022-03-07] MEDS: IPRATROPIUM-ALBUTEROL 3 ML NEB INHALATION SCH ×2 (15:53→20:45)
[2022-03-07] MEDS ORDERED: DEXTROSE 50% SYRINGE 50 ML IVP PRN ×2 (21:26)
--- NOTE | 2022-03-07 21:28 | P.HPIM ---
History of Present Illness This is a pleasant 89 years old male with past medical history of advanced COPD, renal cell carcinoma status post radiotherapy on 06/2020 he follows up with Dr. cole hyperthyroidism Presents because of dyspnea and for 1 week Patient also complaining of from cough about greenish hess in color but no chest pain Patient denies vomiting diarrhea, nausea complaints like burning or urgency, no headache dizziness weakness and numbness She says that he quit smoking in 2008, he denies alcohol or illicit drugs. He is on 2 L oxygen at home and his citrix lead is Dr. Larios Vitals stable and currently he is saturating well 98% on 3 L oxygen if any is a cannula CBC showing hemoglobin 12.1, WBCs normal. PH and the venous sample was within the reference range 7.3 but high pCO2 and 97. Bicarb is also elevated at 46, rest of BMP and liver enzymes were unremarkable. Viruses are undetected including influenza, obesity and coronavirus viruses Chest x-ray: Small left minimal right pleural effusion and COPD Emergency room received breathing treatment, dexamethasone and Zithromax. Also was started on prednisone 40 mg with pulmonary team consult. 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, current Renal CA, hypothyroidism History of Any Multi-Drug Resistant Organisms: None Reported Additional Past Surgical History / Comment(s): hemorroid removal, oral surgeries Past Anesthesia/Blood Transfusion Reactions: No Reported Reaction Past Psychological History: No Psychological Hx Reported Smoking Status: Former smoker Past Alcohol Use History: Occasional Past Drug Use History: None Reported Medications and Allergies Home Medications Medication Instructions Recorded Confirmed Type Albuterol Sulfate [Proair Hfa] 2 puff INHALATION RT-Q6H PRN 08/07/13 03/07/22 History Tiotropium 18 Mcg/Puff [Spiriva] 2 cap INHALATION RT-DAILY 08/07/13 03/07/22 History Fluticasone/Vilanterol [Breo 1 puff INHALATION RT-DAILY 08/13/19 03/07/22 History Ellipta 100-25 Mcg Inhaler] Cabozantinib S-Malate [Cabometyx] 40 mg PO DAILY 01/26/22 03/07/22 History Cholecalciferol [Vitamin D3 (25 50 mcg PO DAILY 01/26/22 03/07/22 History Mcg = 1000 Iu)] Levothyroxine Sodium [Levo-T] 75 mcg PO DAILY 01/26/22 03/07/22 History Potassium Chloride ER [K-Dur 20] 20 meq PO THFRSA 03/07/22 03/07/22 History Triamterene/Hydrochlorothiazid 1 tab PO THFRSA 03/07/22 03/07/22 History [Triamterene-Hctz 37.5-25 mg Tb] Allergies Allergy/AdvReac Type Severity Reaction Status Date / Time [place] Sprouts Allergy Swelling Verified 03/07/22 13:02 of lips Penicillins Allergy Anaphylaxis Verified 03/07/22 13:02 venom-honey bee Allergy Anaphylaxis Verified 03/07/22 13:02 [bee venom (honey bee)] Physical Exam Vitals: Vital Signs Temp Pulse Resp BP Pulse Ox 03/07/22 14:56 90 18 107/61 100 03/07/22 14:16 86 03/07/22 13:58 80 03/07/22 11:24 106 H 26 H 175/87 92 L 03/07/22 11:00 98.1 F 109 H 22 191/96 99 Intake and Output 03/07/22 03/07/22 03/07/22 06:59 14:59 22:59 Other: Weight 45.359 kg -GENERAL: The patient is alert and oriented x3, not in any acute distress. Thin built HEENT: Pupils are round and equally reacting to light. EOMI. No scleral icterus. No conjunctival pallor. Normocephalic, atraumatic. No pharyngeal erythema. No thyromegaly. CARDIOVASCULAR: S1 and S2 present. No murmurs, rubs, or gallops. -PULMONARY: Chest is clear to auscultation, mild bilateral scattered wheezing no crepitation. Mildly tachypneic ABDOMEN: Soft, nontender, nondistended, normoactive bowel sounds. No palpable organomegaly. MUSCULOSKELETAL: No joint swelling or deformity. EXTREMITIES: No cyanosis, clubbing, or pedal edema. NEUROLOGICAL: Gross neurological examination did not reveal any focal deficits. SKIN: No rashes. no petechiae. Results CBC & Chem 7: 03/07/22 12:18 03/07/22 12:18 Labs: Abnormal Lab Results - Last 24 Hours (Table) 03/07/22 03/07/2222 Range/Units 12:18 12:18 12:37 RBC 3.68 L (4.30-5.90) m/uL Hgb 12.1 L (13.0-17.5) gm/dL Hct 37.4 L (39.0-53.0) % MCV 101.7 H (80.0-100.0) fL VBG pCO2 97 H* (37-51) mmHg VBG HCO3 48 H (24-28) mmol/L Chloride 91 L (98-107) mmol/L Carbon Dioxide 46 H* (22-30) mmol/L BUN 21 H (9-20) mg/dL Creatinine 0.60 L (0.66-1.25) mg/dL Calcium 7.2 L (8.4-10.2) mg/dL Total Protein 5.1 L (6.3-8.2) g/dL Albumin 2.8 L (3.5-5.0) g/dL Assessment and Plan Assessment: Acute COPD exacerbation Acute and chronic hypoxic respiratory failure renal cell carcinoma status post radiotherapy Hypothyroidism Moderate to severe protein malnutrition, with BMI 14.3 Plan: Continue with steroids, currently on prednisone Continue with a bronchodilator and oxygen therapy Pulmonary team consult Dietary team consult Labs and medication were reviewed.. Continue same treatment. Continue with symptomatic treatment. Resume home medication. Monitor lytes and vitals. DVT and GI prophylaxis. Further recommendations as per clinical course of the patient DVT prophylaxis: Subcutaneous heparin GI Prophylaxis: Pepcid PT/OT: Pending Prognosis is guarded
[2022-03-08] MEDS: HEPARIN SODIUM,PORCINE/PF 5,000 UNIT/0.5 ML SYRINGE SQ SCH ×3 (00:33→20:25)
[2022-03-08] MEDS: FAMOTIDINE 20 MG/2 ML VIAL IV SCH ×3 (00:33→20:25)
[2022-03-08 05:53] LABS: Glucose,Whole Blood 87 mg/dL (70-110)
[2022-03-08] MEDS: INSULIN ASPART (NovoLOG) 100 UNIT/ML VIAL SQ SCH ×4 (05:59→20:24)
[2022-03-08] MEDS: LEVOTHYROXINE 75 MCG TAB PO SCH (06:19)
[2022-03-08] MEDS: IPRATROPIUM-ALBUTEROL 3 ML NEB INHALATION SCH ×4 (07:32→22:19)
[2022-03-08 07:51] LABS: Basophils % (A) 0 %; Eosinophils % (A) 0 %; HCT 34.1 % (39.0-53.0); HGB 10.5 gm/dL (13.0-17.5); Hypochromasia Moderate; Lymphocytes # (A) 0.7 k/uL (1.0-4.8); Lymphocytes % (A) 17 %; MCH 31.5 pg (25.0-35.0); MCHC 30.9 g/dL (31.0-37.0); MCV 102.2 fL (80.0-100.0); Macrocytosis Slight; Mean Platelet Volume 8.2; Monocytes # (A) 0.2 k/uL (0-1.0); Monocytes % (A) 6 %; Neutrophils % (A) 74 %; Platelet Count 319 k/uL (150-450); Poikilocytosis Slight; RBC 3.34 m/uL (4.30-5.90)
[2022-03-08 07:59] LABS: African American GFR (CKD) >90 (>60 ml/min/1.73 sqM); Blood Urea Nitrogen 27 mg/dL (9-20); Chloride 88 mmol/L (98-107); Non-African American GFR(CKD) >90 (>60 ml/min/1.73 sqM); Potassium 4.6 mmol/L (3.5-5.1)
[2022-03-08 08:16] LABS: Glucose 84 mg/dL (74-99); Sodium 135 mmol/L (137-145)
[2022-03-08 08:24] LABS: Anion Gap 2 mmol/L
[2022-03-08 08:36] LABS: Carbon Dioxide 45 mmol/L (22-30)
[2022-03-08] MEDS ORDERED: predniSONE 20 MG TAB PO SCH (09:00)
[2022-03-08] MEDS: TRIAMTERENE-HCTZ 37.5-25MG 1 EACH TAB PO SCH (09:55)
[2022-03-08] MEDS: CHOLECALCIFEROL 25 MCG (1000 IU) TABLET PO SCH (09:55)
[2022-03-08] MEDS: AZITHROMYCIN 500 MG TAB PO SCH (10:06)
[2022-03-08 11:02] LABS: Glucose,Whole Blood 102 mg/dL (70-110)
[2022-03-08] MEDS: methylPREDNISolone SOD SUCCI 125 MG/2 ML VIAL IV SCH ×2 (11:12→18:04)
[2022-03-08 11:17] VITALS: BMI 14.3
--- NOTE | 2022-03-08 12:38 | P.CNPUL ---
History of Present Illness Consult date: 03/08/22 Requesting physician: Kamaljit Dexter Reason for consult: COPD Chief complaint: shortness of breath. History of present illness: this is a 76-year-old white male with history of severe end-stage CO PD/emphysema, history of renal cell carcinoma, patient is oxygen dependent, maintained on multiple bronchodilators at home. Presented to the hospital with 1 week history of shortness of breath, intermittent cough, cough is productive with greenish hess phlegm. Denies any fever no chills no hemoptysis no chest pain. Denies any nausea or vomiting. Patient complains of profound weakness, patient used to be a heavy smoker, however he quit smoking in 2008.chest x-ray on admission showed evidence of COPD, and small tiny bilateral pleural effusions, CBC is basically unremarkable. Electrolytes are normal however his bicarb is 45.proBNP level is normal. Liver enzymes are normal.patient was admi tted, and this consult was initiated.apparently patient had a venous blood gases and it reflected hypercapnia with a pCO2 of 97, pH is well compensated 7.31, remind you his bicarb is 45. Patient clearly has hronic hypoxic andhypercapnic respiratory failure. Considering the presentation obviously the patient has a worsening of his respiratory failure secondary to worsening COPD. Looking back at the chart, I saw this patient last on 01/27 when he was admitted with similar presentation back then. Review of Systems Constitutional: Significant weight loss over the last one year. 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, current Renal CA, hypothyroidism History of Any Multi-Drug Resistant Organisms: None Reported Additional Past Surgical History / Comment(s): hemorroid removal, oral surgeries Past Anesthesia/Blood Transfusion Reactions: No Reported Reaction Past Psychological History: No Psychological Hx Reported Smoking Status: Former smoker Past Alcohol Use History: Occasional Past Drug Use History: None Reported Medications and Allergies Home Medications Medication Instructions Recorded Confirmed Type Albuterol Sulfate [Proair Hfa] 2 puff INHALATION RT-Q6H PRN 08/07/13 03/07/22 History Tiotropium 18 Mcg/Puff [Spiriva] 2 cap INHALATION RT-DAILY 08/07/13 03/07/22 History Fluticasone/Vilanterol [Breo 1 puff INHALATION RT-DAILY 08/13/19 03/07/22 History Ellipta 100-25 Mcg Inhaler] Cabozantinib S-Malate [Cabometyx] 40 mg PO DAILY 01/26/22 03/07/22 History Cholecalciferol [Vitamin D3 (25 50 mcg PO DAILY 01/26/22 03/07/22 History Mcg = 1000 Iu)] Levothyroxine Sodium [Levo-T] 75 mcg PO DAILY 01/26/22 03/07/22 History Potassium Chloride ER [K-Dur 20] 20 meq PO THFRSA 03/07/22 03/07/22 History Triamterene/Hydrochlorothiazid 1 tab PO THFRSA 03/07/22 03/07/22 History [Triamterene-Hctz 37.5-25 mg Tb] Allergies Allergy/AdvReac Type Severity Reaction Status Date / Time [place] Sprouts Allergy Swelling Verified 03/07/22 13:02 of lips Penicillins Allergy Anaphylaxis Verified 03/07/22 13:02 venom-honey bee Allergy Anaphylaxis Verified 03/07/22 13:02 [bee venom (honey bee)] Physical Exam Vitals: Vital Signs Temp Pulse Pulse Resp BP BP Pulse Ox 03/08/22 11:44 73 03/08/22 11:32 75 03/08/22 08:00 97.3 F L 74 17 126/69 95 03/08/22 07:45 76 03/08/22 07:32 80 03/08/22 00:58 97.8 F 94 18 124/76 98 03/07/22 20:59 79 03/07/22 20:45 81 03/07/22 20:00 97.6 F 95 18 125/83 98 03/07/22 16:06 98.6 F 84 104/70 97 03/07/22 15:56 84 03/07/22 14:56 90 18 107/61 100 03/07/22 14:16 86 03/07/22 13:58 80 Intake and Output 03/07/22 03/08/22 03/08/22 22:59 06:59 14:59 Output Total 250 Balance -250 Output: Urine 250 Other: # Voids 2 2 # Bowel Movements 1 Weight 45.359 kg 45.359 kg Physical Exam: Revealed a 76-year-old white male looks frail, cachectic, chronically ill, in no distress. Head: Atraumatic, normocephalic. HEENT:[Neck is supple.] [No neck masses.] [No thyromegaly.] [No JVD.] Chest: [Extremely diminished breath sound bilaterally, no crackles or rhonchi or wheezes Cardiac Exam: [Normal S1 and S2, no S3 gallop, no murmur.] Abdomen: [Soft, nontender, no megaly, no rebound, no guarding, normal bowel sounds.] Extremities: [No clubbing, 1+ bipedal edema, no cyanosis.] Neurological Exam: Alert oriented 3. No gross focal deficits. [Psychiatric: Normal mood affect and normal No focal neurologic deficit.] Results - Laboratory Findings CBC and BMP: 03/08/22 06:42 03/08/22 06:42 Abnormal lab findings: Abnormal Labs 03/07/22 03/07/22 03/07/22 12:18 12:18 12:37 RBC 3.68 L Hgb 12.1 L Hct 37.4 L MCV 101.7 H MCHC Lymphocytes # VBG pCO2 97 H* VBG HCO3 48 H Sodium Chloride 91 L Carbon Dioxide 46 H* BUN 21 H Creatinine 0.60 L Calcium 7.2 L Total Protein 5.1 L Albumin 2.8 L 03/08/22 03/08/22 06:42 06:42 RBC 3.34 L Hgb 10.5 L Hct 34.1 L MCV 102.2 H MCHC 30.9 L Lymphocytes # 0.7 L VBG pCO2 VBG HCO3 Sodium 135 L Chloride 88 L Carbon Dioxide 45 H* BUN 27 H Creatinine Calcium 7.0 L Total Protein Albumin - Diagnostic Findings Chest x-ray: image reviewed (as noted in HPI) Assessment and Plan Assessment: impression: Acute exacerbation of COPD Acute tracheobronchitis, no evidence of pneumonia Small bilateral pleural effusions most likely secondary to hypoproteinemia/hypoalbuminemia secondary to his chronic moderate severe protein calorie malnutrition. Metastatic renal cell carcinoma,skeletal metastasis. Weight loss secondary to metastatic disease and underlying COPD. Recommendation: Continue present course of bronchodilators. Continue Solu-Medrol. Continue antibiotics and the check pro calcitonin level. continue diuretics,/gentle diuresis. Lasix was added although the patient is on Maxzide. Resume home meds. GI and DVT prophylaxis. discussed CODE STATUS with the patient, he would like to think about it for now. Cannot make a decision at this point yet We'll continue to follow. Time with Patient: Greater than 30
[2022-03-08 16:58] LABS: Glucose,Whole Blood 139 mg/dL (70-110)
[2022-03-08 19:52] LABS: Glucose,Whole Blood 148 mg/dL (70-110)
[2022-03-08] MEDS: SYMBICORT 160-4.5 MCG INHALER INHALATION SCH ×2 (22:19→22:32)
[2022-03-09] MEDS: methylPREDNISolone SOD SUCCI 125 MG/2 ML VIAL IV SCH ×4 (00:27→18:10)
[2022-03-09 06:01] LABS: Glucose,Whole Blood 162 mg/dL (70-110)
[2022-03-09] MEDS: INSULIN ASPART (NovoLOG) 100 UNIT/ML VIAL SQ SCH ×5 (06:02→21:33)
[2022-03-09] MEDS: LEVOTHYROXINE 75 MCG TAB PO SCH (06:03)
[2022-03-09] MEDS: TRIAMTERENE-HCTZ 37.5-25MG 1 EACH TAB PO SCH (08:58)
[2022-03-09] MEDS: AZITHROMYCIN 500 MG TAB PO SCH (08:59)
[2022-03-09] MEDS: HEPARIN SODIUM,PORCINE/PF 5,000 UNIT/0.5 ML SYRINGE SQ SCH ×2 (08:59→21:32)
[2022-03-09] MEDS: FUROSEMIDE 20 MG TAB PO SCH (08:59)
[2022-03-09] MEDS: CHOLECALCIFEROL 25 MCG (1000 IU) TABLET PO SCH (08:59)
[2022-03-09] MEDS ORDERED: FUROSEMIDE 10 MG/ML 2 ML VIAL IV STA (09:13)
[2022-03-09] MEDS: FAMOTIDINE 20 MG/2 ML VIAL IV SCH (09:17)
--- NOTE | 2022-03-09 09:17 | P.PN ---
Subjective This is a pleasant 89 years old male with past medical history of advanced COPD, renal cell carcinoma status post radiotherapy on 06/2020 he follows up with Dr. cole hyperthyroidism Presents because of dyspnea and for 1 week Patient also complaining of from cough about greenish hess in color but no chest pain Patient denies vomiting diarrhea, nausea complaints like burning or urgency, no headache dizziness weakness and numbness She says that he quit smoking in 2008, he denies alcohol or illicit drugs. 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 PH and the venous sample was within the reference range 7.3 but high pCO2 and 97. Bicarb is also elevated at 46, rest of BMP and liver enzymes were unremarkable. Viruses are undetected including influenza, obesity and coronavirus viruses Chest x-ray: Small left minimal right pleural effusion and COPD Emergency room received breathing treatment, dexamethasone and Zithromax. Also was started on prednisone 40 mg with pulmonary team consult. 03/08/2022 Patient Still dyspneic and wheezing and decreased air entry, he is currently on steroids with IV Solu-Medrol 60 mg. He is on 3 L oxygen via nasal cannula Going to check pro-CALCITONIN and if elevated and was going to start him on Levaquin. Also he has some evidence of fluid overload, he is on oral Lasix 20 mg, will give one-time dose of IV 20 mg. Also he is on triamterene-hydrochlorothiazide Dietary consult for significant malnutrition. Objective - Vital Signs Vital signs: Vital Signs Temp 97.9 F 03/08/22 13:46 Pulse 91 03/08/22 13:46 Resp 18 03/08/22 13:46 BP 121/67 03/08/22 13:46 Pulse Ox 99 03/08/22 13:46 FiO2 Intake & Output 03/07/22 03/08/22 03/08/22 18:59 06:59 18:59 Output Total 250 Balance -250 Weight 45.359 kg 45.359 kg Output: Urine 250 Other: # Voids 2 2 # Bowel Movements 1 - Exam -GENERAL: The patient is alert and oriented x3, not in any acute distress. Underweight, BMI 14.3 HEENT: Pupils are round and equally reacting to light. EOMI. No scleral icterus. No conjunctival pallor. Normocephalic, atraumatic. No pharyngeal erythema. No thyromegaly. CARDIOVASCULAR: S1 and S2 present. No murmurs, rubs, or gallops. -PULMONARY: Chest is clear to auscultation, bilateral scattered wheezing . No crackles. ABDOMEN: Soft, nontender, nondistended, normoactive bowel sounds. No palpable organomegaly. MUSCULOSKELETAL: No joint swelling or deformity. EXTREMITIES: No cyanosis, clubbing, or pedal edema. NEUROLOGICAL: Gross neurological examination did not reveal any focal deficits. SKIN: No rashes. no petechiae. - Labs CBC & Chem 7: 03/08/22 06:42 03/08/22 06:42 Labs: Abnormal Lab Results - Last 24 Hours (Table) 03/08/22 03/08/22 Range/Units 06:42 06:42 RBC 3.34 L (4.30-5.90) m/uL Hgb 10.5 L (13.0-17.5) gm/dL Hct 34.1 L (39.0-53.0) % MCV 102.2 H (80.0-100.0) fL MCHC 30.9 L (31.0-37.0) g/dL Lymphocytes # 0.7 L (1.0-4.8) k/uL Sodium 135 L (137-145) mmol/L Chloride 88 L (98-107) mmol/L Carbon Dioxide 45 H* (22-30) mmol/L BUN 27 H (9-20) mg/dL Calcium 7.0 L (8.4-10.2) mg/dL Assessment and Plan Assessment: Acute COPD exacerbation Acute and chronic hypoxic respiratory failure renal cell carcinoma status post radiotherapy Hypothyroidism Moderate to severe protein malnutrition, with BMI 14.3 Plan: Continue with steroids, currently on IV Solu-Medrol Continue with a bronchodilator and oxygen therapy Pulmonary team consult Dietary team consult Consider antibiotic Labs and medication were reviewed.. Continue same treatment. Continue with symptomatic treatment. Resume home medication. Monitor lytes and vitals. DVT and GI prophylaxis. Further recommendations as per clinical course of the patient DVT prophylaxis: Subcutaneous heparin GI Prophylaxis: Pepcid PT/OT: Pending Prognosis is guarded
[2022-03-09] MEDS: IPRATROPIUM-ALBUTEROL 3 ML NEB INHALATION SCH ×4 (09:45→20:48)
[2022-03-09] MEDS: SYMBICORT 160-4.5 MCG INHALER INHALATION SCH ×2 (09:46→20:50)
[2022-03-09] MEDS: LEVOFLOXACIN 500 MG TAB PO SCH (10:21)
[2022-03-09 11:57] LABS: Glucose,Whole Blood 139 mg/dL (70-110)
--- NOTE | 2022-03-09 12:24 | P.PN ---
Subjective Progress Note Date: 03/09/22 this is a 76-year-old white male with history of severe end-stage COPD/emphysema, history of renal cell carcinoma, patient is oxygen dependent, maintained on multiple bronchodilators at home. Presented to the hospital with 1 week history of shortness of breath, intermittent cough, cough is productive with greenish hess phlegm. Denies any fever no chills no hemoptysis no chest pain. Denies any nausea or vomiting. Patient complains of profound weakness, patient used to be a heavy smoker, however he quit smoking in 2008.chest x-ray on admission showed evidence of COPD, and small tiny bilateral pleural effusions, CBC is basically unremarkable. Electrolytes are normal however his bicarb is 45.proBNP level is normal. Liver enzymes are normal.patient was admitted, and this consult was initiated.apparently patient had a venous blood gases and it reflected hypercapnia with a pCO2 of 97, pH is well compensated 7.31, remind you his bicarb is 45. Patient clearly has hronic hypoxic andhypercapnic respiratory failure. Considering the presentation obviously the patient has a worsening of his respiratory failure secondary to worsening COPD. Looking back at the chart, I saw this patient last on 01/27 when he was admitted with similar presentation back then. The patient is seen today 03/09/2022 in follow-up on the regular medical floor. Remains awake and alert. Currently resting comfortably in bed. Maintaining O2 saturations in the 90s on 3 L/m per nasal cannula. No IV fluids. Blood sugar 139. He is continued on DuoNeb inhalations, Symbicort, IV Solu-Medrol. Antibiotics in the form of Levaquin. Remains on oral diuretics. Objective - Vital Signs Vital signs: Vital Signs Temp 97.8 F 03/09/22 07:42 Pulse 70 03/09/22 12:10 Resp 20 03/09/22 09:30 BP 118/76 03/09/22 07:42 Pulse Ox 100 03/09/22 09:48 FiO2 Intake & Output 03/08/22 03/09/22 03/09/22 18:59 06:59 18:59 Weight 45.359 kg Other: Voiding Method Bedside Commode # Voids 2 2 - Exam GENERAL EXAM: Alert, renal, cachectic 76-year-old gentleman, on 3 L nasal cannula, fairly comfortable in no apparent distress. HEAD: Normocephalic. EYES: Normal reaction of pupils, equal size. NOSE: Clear with pink turbinates. THROAT: No erythema or exudates. NECK: No masses, no JVD. CHEST: No chest wall deformity. LUNGS: Equal air entry with no crackles, wheeze, rhonchi or dullness. Diminished throughout CVS: S1 and S2 normal with no audible murmur, regular rhythm. ABDOMEN: No hepatosplenomegaly, normal bowel sounds, no guarding or rigidity. SPINE: No scoliosis or deformity SKIN: No rashes CENTRAL NERVOUS SYSTEM: No focal deficits, tone is normal in all 4 extremities. EXTREMITIES: There is no peripheral edema. No clubbing, no cyanosis. Peripheral pulses are intact. - Labs CBC & Chem 7: 03/08/22 06:42 03/08/22 06:42 Labs: Abnormal Lab Results - Last 24 Hours (Table) 03/08/22 03/08/22 03/08/22 Range/Units 06:42 16:57 19:50 POC Glucose (mg/dL) 139 H 148 H (70-110) mg/dL Procalcitonin 0.46 H (0.02-0.09) ng/mL 03/09/22 03/09/22 Range/Units 06:00 11:55 POC Glucose (mg/dL) 162 H 139 H (70-110) mg/dL Procalcitonin (0.02-0.09) ng/mL Assessment and Plan Assessment: Acute on chronic hypoxemic respiratory failure secondary to an acute exacerbation of COPD Acute tracheobronchitis, no evidence of pneumonia Small bilateral pleural effusions most likely secondary to hypoproteinemia/hypoalbuminemia secondary to his chronic moderate severe protein calorie malnutrition. Metastatic renal cell carcinoma,skeletal metastasis. Weight loss secondary to metastatic disease and underlying COPD. History of renal cell carcinoma with previous radiation Former smoker Hypothyroidism Plan: The patient was seen and evaluated Currently stable on 3 L which he wears at home Continue the current treatment plan Prognosis remains poor Recommend DO NOT RESUSCITATE/DO NOT INTUBATE CODE STATUS We will continue to follow I have personally seen and examined the patient, performed the documentation and the assessment and plan as written. Number of minutes spent on the visit: 10.
[2022-03-09 16:21] LABS: Glucose,Whole Blood 116 mg/dL (70-110)
--- NOTE | 2022-03-09 16:23 | CDI ---
Documentation Clarification Form Date: 03/09/2022 04:04:02 PM From: Radha Sherwood RN CCDS Admit Date: 03/07/2022 01:38:00 PM Patient Name: David Lucero Visit Number: [id number] Discharge Date: ATTENTION: The Clinical Documentation Specialists (CDI) and [facility] Coding Staff appreciate your assistance in clarifying documentation. Please respond to the clarification below the line at the bottom and electronically sign. The CDI & [facility] Coding staff will review the response and follow-up if needed. Please note: Queries are made part of the Legal Health Record. If you have any questions, please contact the author of this message via ITS. Dr. Mari E Guerita Moderate to Severe Malnutrition is documented 03/08, Medicine note. Additional clarification regarding the severity of malnutrition is requested. History/Risk Factors: 76-year-old male presents to the ED with dyspnea for one week. Medical history: Advanced COPD; Renal cell carcinoma s/p radiation since 2020; Recurrent renal cell carcinoma and Hypothyroidism. 03/07, H&P. Clinical Indicators: Admitting diagnosis: Acute on chronic respiratory failure; AECOPD with tracheobronchitis. Dietary Consult: Current BMI: 14.3 Hgt 5ft 10in; Weight stated by patient 45.359kg; Calculated ideal body weight 75.5kg Weight Loss: 24% weight loss x 2 years Physical findings: Underweight with slight temporal wasting Estimated Nutritional Needs: Energy needs (Kcal) 1769kcal Protein range: 1.2 -1.4 r/t renal cancer. Estimated protein needs: 57-63 grams/day. Fluid needs: fluid formula 1ml/Kcal; Estimated fluid needs 1269mls/day Treatment: Nutrition education; monitoring po and supplement intake, Regular diet Dietary Consult: see above Supplements: [place] instant breakfast TID and Magic cups TID Lab monitoring: Chemistry Please clarify the type of malnutrition, if known: [ ] Moderate Protein-Calorie Malnutrition [ ] Severe Protein-Calorie Malnutrition [ ] Other condition, please specify [ ] Unable to Determine (Template Last Revised: May 2020) Severe Protein-Calorie Malnutrition MTDD
[2022-03-09] MEDS: FAMOTIDINE 20 MG TAB PO SCH (21:32)
[2022-03-09 21:34] LABS: Glucose,Whole Blood 130 mg/dL (70-110)
[2022-03-10] MEDS: methylPREDNISolone SOD SUCCI 125 MG/2 ML VIAL IV SCH ×5 (00:44→23:48)
[2022-03-10 06:11] LABS: Glucose,Whole Blood 113 mg/dL (70-110)
[2022-03-10] MEDS: LEVOTHYROXINE 75 MCG TAB PO SCH (06:13)
[2022-03-10] MEDS: INSULIN ASPART (NovoLOG) 100 UNIT/ML VIAL SQ SCH ×4 (06:13→20:41)
[2022-03-10 07:15] LABS: Glucose,Whole Blood 111 mg/dL (70-110)
[2022-03-10] MEDS: IPRATROPIUM-ALBUTEROL 3 ML NEB INHALATION SCH ×4 (07:59→19:47)
[2022-03-10] MEDS: SYMBICORT 160-4.5 MCG INHALER INHALATION SCH ×2 (08:01→20:32)
[2022-03-10] MEDS: HEPARIN SODIUM,PORCINE/PF 5,000 UNIT/0.5 ML SYRINGE SQ SCH ×2 (08:53→20:41)
[2022-03-10] MEDS: FUROSEMIDE 20 MG TAB PO SCH (08:53)
[2022-03-10] MEDS: FAMOTIDINE 20 MG TAB PO SCH ×2 (08:53→20:41)
[2022-03-10] MEDS: CHOLECALCIFEROL 25 MCG (1000 IU) TABLET PO SCH (08:53)
[2022-03-10] MEDS: LEVOFLOXACIN 500 MG TAB PO SCH (08:54)
[2022-03-10] MEDS: TRIAMTERENE-HCTZ 37.5-25MG 1 EACH TAB PO SCH (09:39)
[2022-03-10 11:33] LABS: Glucose,Whole Blood 162 mg/dL (70-110)
[2022-03-10 11:57] LABS: Basophils # (A) 0.01 X 10*3/uL (0.00-0.10); Basophils % (A) 0.2 %; Eosinophils # (A) 0 X 10*3/uL (0.04-0.35); Eosinophils % (A) 0 %; HCT 28.4 % (39.6-50.0); HGB 8.9 g/dL (13.0-17.0); Immature Grans, Automated 0.5 %; Lymphocytes # (A) 0.45 X 10*3/uL (0.90-5.00); MCH 32.1 pg (27.0-32.0); MCHC 31.3 g/dL (32.0-37.0); MCV 102.5 fL (80.0-97.0); Mean Platelet Volume 9.8 fL (9.5-12.2); Monocytes % (A) 7.1 %; NRBC Per 100 WBC 0 /100 WBCS (0.0-0.0); Neutrophils # (A) 4.73 X 10*3/uL (1.80-7.70); Neutrophils % (A) 84.2 %; Platelet Count 234 X 10*3/uL (140-440); RBC 2.77 X 10*6/uL (4.40-5.60); RDW 14.6 % (11.5-14.5); WBC 5.62 X 10*3/uL (4.50-10.00)
[2022-03-10 12:29] LABS: African American GFR (CKD) 105.6 (60.0-200.0); BUN/Creat Ratio 35.49 Ratio (12.00-20.00); Blood Urea Nitrogen 25.2 mg/dL (9.0-27.0); Calcium 6.9 mg/dL (8.7-10.3); Non-African American GFR(CKD) 91.1 (60.0-200.0)
--- NOTE | 2022-03-10 12:55 | P.PN ---
Subjective Progress Note Date: 03/10/22 this is a 76-year-old white male with history of severe end-stage COPD/emphysema, history of renal cell carcinoma, patient is oxygen dependent, maintained on multiple bronchodilators at home. Presented to the hospital with 1 week history of shortness of breath, intermittent cough, cough is productive with greenish hess phlegm. Denies any fever no chills no hemoptysis no chest pain. Denies any nausea or vomiting. Patient complains of profound weakness, patient used to be a heavy smoker, however he quit smoking in 2008.chest x-ray on admission showed evidence of COPD, and small tiny bilateral pleural effusions, CBC is basically unremarkable. Electrolytes are normal however his bicarb is 45.proBNP level is normal. Liver enzymes are normal.patient was admitted, and this consult was initiated.apparently patient had a venous blood gases and it reflected hypercapnia with a pCO2 of 97, pH is well compensated 7.31, remind you his bicarb is 45. Patient clearly has hronic hypoxic andhypercapnic respiratory failure. Considering the presentation obviously the patient has a worsening of his respiratory failure secondary to worsening COPD. Looking back at the chart, I saw this patient last on 01/27 when he was admitted with similar presentation back then. The patient is seen today 03/09/2022 in follow-up on the regular medical floor. Remains awake and alert. Currently resting comfortably in bed. Maintaining O2 saturations in the 90s on 3 L/m per nasal cannula. No IV fluids. Blood sugar 139. He is continued on DuoNeb inhalations, Symbicort, IV Solu-Medrol. Antibiotics in the form of Levaquin. Remains on oral diuretics. The patient is seen today 03/10/2022 in follow-up on the regular medical floor. Currently sitting up in bed. Awake and alert in no acute distress. Maintaining O2 saturations in the 90s on 3 L/m per nasal cannula. Continued on Symbicort, DuoNeb inhalations, IV Solu-Medrol. Continued on heparin for DVT prophylaxis. Antibiotics in the form of Levaquin. White count 5.6. Hemoglobin 8.9. Sodium 139. Potassium 5.0. Bicarb 46. BUN 25. Creatinine 0.7. Glucose 103. Objective - Vital Signs Vital signs: Vital Signs Temp 97.6 F 03/10/22 07:59 Pulse 83 03/10/22 11:36 Resp 14 03/10/22 07:59 BP 109/68 03/10/22 07:59 Pulse Ox 83 L 03/10/22 08:02 FiO2 Intake & Output 03/09/22 03/10/22 03/10/22 18:59 06:59 18:59 Intake Total 50 Output Total 800 300 175 Balance -800 -250 -175 Intake: Oral 50 Output: Urine 800 300 175 Other: Voiding Method Bedside Commode Bedside Commode # Voids 1 # Bowel Movements 1 - Exam GENERAL EXAM: Alert, frail, cachectic 76-year-old gentleman, on 3 L nasal cannula, fairly comfortable in no apparent distress. HEAD: Normocephalic. EYES: Normal reaction of pupils, equal size. NOSE: Clear with pink turbinates. THROAT: No erythema or exudates. NECK: No masses, no JVD. CHEST: No chest wall deformity. LUNGS: Equal air entry with no crackles, wheeze, rhonchi or dullness. Diminished throughout CVS: S1 and S2 normal with no audible murmur, regular rhythm. ABDOMEN: No hepatosplenomegaly, normal bowel sounds, no guarding or rigidity. SPINE: No scoliosis or deformity SKIN: No rashes CENTRAL NERVOUS SYSTEM: No focal deficits, tone is normal in all 4 extremities. EXTREMITIES: There is no peripheral edema. No clubbing, no cyanosis. Per ipheral pulses are intact. - Labs CBC & Chem 7: 03/10/22 06:38 03/10/22 06:38 Labs: Abnormal Lab Results - Last 24 Hours (Table) 03/09/22 03/09/22 03/10/22 Range/Units 16:17 21:31 06:09 RBC (4.40-5.60) X 10*6/uL Hgb (13.0-17.0) g/dL Hct (39.6-50.0) % MCV (80.0-97.0) fL MCH (27.0-32.0) pg MCHC (32.0-37.0) g/dL RDW (11.5-14.5) % Lymphocytes # (0.90-5.00) X 10*3/uL Eosinophils # (0.04-0.35) X 10*3/uL Chloride (96-109) mmol/L Carbon Dioxide (20.0-27.5) mmol/L Anion Gap (10.00-18.00) mmol/L BUN/Creatinine Ratio (12.00-20.00) Ratio POC Glucose (mg/dL) 116 H 130 H 113 H (70-110) mg/dL Calcium (8.7-10.3) mg/dL 03/10/22 03/10/22 03/10/22 Range/Units 06:38 06:38 07:14 RBC 2.77 L (4.40-5.60) X 10*6/uL Hgb 8.9 L (13.0-17.0) g/dL Hct 28.4 L (39.6-50.0) % MCV 102.5 H (80.0-97.0) fL MCH 32.1 H (27.0-32.0) pg MCHC 31.3 L (32.0-37.0) g/dL RDW 14.6 H (11.5-14.5) % Lymphocytes # 0.45 L (0.90-5.00) X 10*3/uL Eosinophils # 0 L (0.04-0.35) X 10*3/uL Chloride 89 L (96-109) mmol/L Carbon Dioxide 45.9 H* (20.0-27.5) mmol/L Anion Gap 4.00 L (10.00-18.00) mmol/L BUN/Creatinine Ratio 35.49 H (12.00-20.00) Ratio POC Glucose (mg/dL) 111 H (70-110) mg/dL Calcium 6.9 L (8.7-10.3) mg/dL 03/10/22 Range/Units 11:31 RBC (4.40-5.60) X 10*6/uL Hgb (13.0-17.0) g/dL Hct (39.6-50.0) % MCV (80.0-97.0) fL MCH (27.0-32.0) pg MCHC (32.0-37.0) g/dL RDW (11.5-14.5) % Lymphocytes # (0.90-5.00) X 10*3/uL Eosinophils # (0.04-0.35) X 10*3/uL Chloride (96-109) mmol/L Carbon Dioxide (20.0-27.5) mmol/L Anion Gap (10.00-18.00) mmol/L BUN/Creatinine Ratio (12.00-20.00) Ratio POC Glucose (mg/dL) 162 H (70-110) mg/dL Calcium (8.7-10.3) mg/dL Assessment and Plan Assessment: Acute on chronic hypoxemic respiratory failure secondary to an acute exacerbation of COPD Acute tracheobronchitis, no evidence of pneumonia but pro calcitonin 0.46, currently on Levaquin Small bilateral pleural effusions most likely secondary to hypoproteinemia/hypoalbuminemia secondary to his chronic moderate severe protein calorie malnutrition. Metastatic renal cell carcinoma,skeletal metastasis. Weight loss secondary to metastatic disease and underlying COPD. History of renal cell carcinoma with previous radiation Former smoker Hypothyroidism Plan: The patient was seen and evaluated Medications and labs reviewed Currently stable on 3 L which he wears at home Continue the current treatment plan Prognosis remains poor Patient declines hospice and the plan is for subacute rehab post discharge We will continue to follow I have personally seen and examined the patient, performed the documentation and the assessment and plan as written. Number of minutes spent on the visit: 10.
[2022-03-10 15:56] LABS: Glucose,Whole Blood 128 mg/dL (70-110)
[2022-03-10 20:23] LABS: Glucose,Whole Blood 157 mg/dL (70-110)
[2022-03-11] MEDS: methylPREDNISolone SOD SUCCI 125 MG/2 ML VIAL IV SCH ×4 (06:06→22:55)
[2022-03-11] MEDS: LEVOTHYROXINE 75 MCG TAB PO SCH (06:06)
[2022-03-11 06:31] LABS: Glucose,Whole Blood 114 mg/dL (70-110)
[2022-03-11] MEDS: INSULIN ASPART (NovoLOG) 100 UNIT/ML VIAL SQ SCH ×4 (06:32→23:05)
[2022-03-11] MEDS: IPRATROPIUM-ALBUTEROL 3 ML NEB INHALATION SCH ×4 (07:22→19:25)
[2022-03-11] MEDS: SYMBICORT 160-4.5 MCG INHALER INHALATION SCH ×3 (07:22→19:25)
[2022-03-11] MEDS: HEPARIN SODIUM,PORCINE/PF 5,000 UNIT/0.5 ML SYRINGE SQ SCH ×2 (09:38→22:55)
[2022-03-11] MEDS: LEVOFLOXACIN 500 MG TAB PO SCH (09:39)
[2022-03-11] MEDS: CHOLECALCIFEROL 25 MCG (1000 IU) TABLET PO SCH (09:39)
[2022-03-11] MEDS: FAMOTIDINE 20 MG TAB PO SCH ×2 (09:39→22:55)
[2022-03-11] MEDS: FUROSEMIDE 20 MG TAB PO SCH (09:39)
[2022-03-11 10:12] LABS: BUN/Creat Ratio 34.12 Ratio (12.00-20.00); Calcium 6.7 mg/dL (8.7-10.3); Non-African American GFR(CKD) 88.5 (60.0-200.0); Potassium 3.7 mmol/L (3.5-5.5)
[2022-03-11 11:49] LABS: Glucose,Whole Blood 149 mg/dL (70-110)
--- NOTE | 2022-03-11 13:30 | P.PN ---
Subjective Progress Note Date: 03/11/22 Principal diagnosis: Acute exacerbation of severe COPD this is a 76-year-old white male with history of severe end-stage COPD/emphysema, history of renal cell carcinoma, patient is oxygen dependent, maintained on multiple bronchodilators at home. Presented to the hospital with 1 week history of shortness of breath, intermittent cough, cough is productive with greenish hess phlegm. Denies any fever no chills no hemoptysis no chest pain. Denies any nausea or vomiting. Patient complains of profound weakness, patient used to be a heavy smoker, however he quit smoking in 2008.chest x-ray on admission showed evidence of COPD, and small tiny bilateral pleural effusions, CBC is basically unremarkable. Electrolytes are normal however his bicarb is 45.proBNP level is normal. Liver enzymes are normal.patient was admitted, and this consult was initiated.apparently patient had a venous blood gases and it reflected hypercapnia with a pCO2 of 97, pH is well compensated 7.31, remind you his bicarb is 45. Patient clearly has hronic hypoxic andhypercapnic respiratory failure. Considering the presentation obviously the patient has a worsening of his respiratory failure secondary to worsening COPD. Looking back at the chart, I saw this patient last on 01/27 when he was admitted with similar presentation back then. The patient is seen today 03/09/2022 in follow-up on the regular medical floor. Remains awake and alert. Currently resting comfortably in bed. Maintaining O2 saturations in the 90s on 3 L/m per nasal cannula. No IV fluids. Blood sugar 139. He is continued on DuoNeb inhalations, Symbicort, IV Solu-Medrol. Antibiotics in the form of Levaquin. Remains on oral diuretics. The patient is seen today 03/10/2022 in follow-up on the regular medical floor. Currently sitting up in bed. Awake and alert in no acute distress. Maintaining O2 saturations in the 90s on 3 L/m per nasal cannula. Continued on Symbicort, DuoNeb inhalations, IV Solu-Medrol. Continued on heparin for DVT prophylaxis. Antibiotics in the form of Levaquin. White count 5.6. Hemoglobin 8.9. Sodium 139. Potassium 5.0. Bicarb 46. BUN 25. Creatinine 0.7. Glucose 103. Reevaluated today on 03/11/22, patient is feeling better, breathing easier, he is to be considered for placement possibly in rehab in the next 24 hours. Overall I believe this is the best he is going to get. Patient is on 3 L nasal cannula O2 sat is 93%. Labs today showed bicarb of 46 which is not surprising patient is metabolically compensating for chronic respiratory acidosis. Objective - Vital Signs Vital signs: Vital Signs Temp 97.5 F L 03/11/22 08:00 Pulse 96 03/11/22 11:25 Resp 15 03/11/22 08:00 BP 137/81 03/11/22 08:00 Pulse Ox 93 L 03/11/22 08:00 FiO2 Intake & Output 03/10/22 03/11/22 03/11/22 18:59 06:59 18:59 Intake Total 650 Output Total 575 700 Balance 75 -700 Intake: Oral 650 Output: Urine 575 700 Other: Voiding Method Urinal Urinal # Voids 3 - Exam GENERAL EXAM: Revealed a 76-year-old white male frail looking chronically ill, in no distress HEAD: Normocephalic. EYES: Normal reaction of pupils, equal size. NOSE: Clear with pink turbinates. THROAT: No erythema or exudates. NECK: No masses, no JVD. CHEST: No chest wall deformity. LUNGS: Diminished breath sound bilaterally no crackles or rhonchi or wheezes CVS: S1 and S2 normal with no audible murmur, regular rhythm. ABDOMEN: No hepatosplenomegaly, normal bowel sounds, no guarding or rigidity. CENTRAL NERVOUS SYSTEM: Alert and oriented 3 no gross deficit EXTREMITIES: No clubbing edema or cyanosis - Labs CBC & Chem 7: 03/10/22 06:38 03/11/22 04:21 Labs: Abnormal Lab Results - Last 24 Hours (Table) 03/10/22 03/10/22 03/10/22 Range/Units 06:38 15:53 20:22 Chloride 89 L (96-109) mmol/L Carbon Dioxide 45.9 H* (20.0-27.5) mmol/L Anion Gap 4.00 L (10.00-18.00) mmol/L BUN/Creatinine Ratio 35.49 H (12.00-20.00) Ratio Glucose (70-110) mg/dL POC Glucose (mg/dL) 128 H 157 H (70-110) mg/dL Calcium 6.9 L (8.7-10.3) mg/dL 03/11/22 03/11/22 03/11/22 Range/Units 04:21 06:30 11:47 Chloride 89 L (96-109) mmol/L Carbon Dioxide 46.5 H* (20.0-27.5) mmol/L Anion Gap 3.50 L (10.00-18.00) mmol/L BUN/Creatinine Ratio 34.12 H (12.00-20.00) Ratio Glucose 114 H (70-110) mg/dL POC Glucose (mg/dL) 114 H 149 H (70-110) mg/dL Calcium 6.7 L (8.7-10.3) mg/dL Assessment and Plan Assessment: impression: Acute exacerbation of COPD Acute tracheobronchitis, no evidence of pneumonia Small bilateral pleural effusions most likely secondary to hypoproteinemia/hypoalbuminemia secondary to his chronic moderate severe protein calorie malnutrition. Metastatic renal cell carcinoma,skeletal metastasis. Weight loss secondary to metastatic disease and underlying COPD. Recommendation: Continue present course of bronchodilators. Continue steroids, could transition to oral prednisone. Continue diuretics GI and DVT prophylaxis. Consider placement on this patient We'll clear for discharge in the next 24 hours Time with Patient: Less than 30
[2022-03-11 17:33] LABS: Glucose,Whole Blood 155 mg/dL (70-110)
[2022-03-11 20:14] LABS: Glucose,Whole Blood 158 mg/dL (70-110)
--- NOTE | 2022-03-11 22:02 | P.PN ---
Subjective Progress Note Date: 03/09/22 This is a pleasant 89 years old male with past medical history of advanced COPD, renal cell carcinoma status post radiotherapy on 06/2020 he follows up with Dr. cole hyperthyroidism Presents because of dyspnea and for 1 week Patient also complaining of from cough about greenish hess in color but no chest pain Patient denies vomiting diarrhea, nausea complaints like burning or urgency, no headache dizziness weakness and numbness She says that he quit smoking in 2008, he denies alcohol or illicit drugs. He is on 2 L oxygen at home and his director of casework department is Dr. Larios Vitals stable and currently he is saturating well 98% on 3 L oxygen if any is a cannula CBC showing hemoglobin 12.1, WBCs normal. PH and the venous sample was within the reference range 7.3 but high pCO2 and 97. Bicarb is also elevated at 46, rest of BMP and liver enzymes were unremarkable. Viruses are undetected including influenza, obesity and coronavirus viruses Chest x-ray: Small left minimal right pleural effusion and COPD Emergency room received breathing treatment, dexamethasone and Zithromax. Also was started on prednisone 40 mg with pulmonary team consult. 03/08/2022 Patient Still dyspneic and wheezing and decreased air entry, he is currently on steroids with IV Solu-Medrol 60 mg. He is on 3 L oxygen via nasal cannula Going to check pro-CALCITONIN and if elevated and was going to start him on Levaquin. Also he has some evidence of fluid overload, he is on oral Lasix 20 mg, will give one-time dose of IV 20 mg. Also he is on triamterene-hydrochlorothiazide Dietary consult for significant malnutrition. 03/09/2022 Patient is currently resting in bed. Denies any complaints of worsening shortness of breath. On oxygen at 3 L via nasal cannula. No complaints of chest pain. Awake alert and oriented. No nausea vomiting abdominal pain or diarrhea. Patient denies antibiotics in the form of Levaquin. Also being continued on Solu-Medrol 60 mg every 6 hourly and duo nebs and Symbicort. Laboratory data reviewed. Procalcitonin level is 0.46 Current medications reviewed. Objective - Vital Signs Vital signs: Vital Signs Temp 97.7 F 03/09/22 19:53 Pulse 82 03/09/22 21:01 Resp 16 03/09/22 21:01 BP 123/79 03/09/22 19:53 Pulse Ox 100 03/09/22 19:53 FiO2 Intake & Output 03/09/22 03/09/22 03/10/22 06:59 18:59 06:59 Output Total 800 Balance -800 Output: Urine 800 Other: Voiding Method Bedside Commode # Voids 2 - Exam - Exam -GENERAL: The patient is alert and oriented x3, not in any acute distress. Underweight, BMI 14.3 HEENT: Pupils are round and equally reacting to light. EOMI. No scleral icterus. No conjunctival pallor. Normocephalic, atraumatic. No pharyngeal erythema. No thyromegaly. CARDIOVASCULAR: S1 and S2 present. No murmurs, rubs, or gallops. -PULMONARY: Chest is clear to auscultation, mild exp wheezing . No crackles. Bibasilar diminished sounds. ABDOMEN: Soft, nontender, nondistended, normoactive bowel sounds. No palpable organomegaly. MUSCULOSKELETAL: No joint swelling or deformity. EXTREMITIES: No cyanosis, clubbing, or pedal edema. NEUROLOGICAL: Gross neurological examination did not reveal any focal deficits. SKIN: No rashes. no petechiae. - Labs CBC & Chem 7: 03/10/22 06:38 03/11/22 04:21 Labs: Abnormal Lab Results - Last 24 Hours (Table) 03/09/22 03/09/22 03/09/22 Range/Units 06:00 11:55 16:17 POC Glucose (mg/dL) 162 H 139 H 116 H (70-110) mg/dL 03/09/22 Range/Units 21:31 POC Glucose (mg/dL) 130 H (70-110) mg/dL Assessment and Plan Assessment: Acute COPD exacerbation Acute tracheobronchitis, no evidence of pneumonia Acute and chronic hypoxic respiratory failure Metastatic renal cell carcinoma,skeletal metastasis. status post radiotherapy Hypothyroidism Moderate to severe protein malnutrition, with BMI 14.3 Small bilateral pleural effusions Former smoker Hypothyroidism DNR/DNI Plan: Continue with steroids, currently on IV Solu-Medrol Continue with a bronchodilator and oxygen therapy c/w levofloxacin DVT prophylaxis: Subcutaneous heparin GI Prophylaxis: Pepcid PT/OT: Pending Prognosis is guarded Time with Patient: Greater than 30
--- NOTE | 2022-03-11 22:03 | P.PN ---
Subjective Progress Note Date: 03/10/22 This is a pleasant 89 years old male with past medical history of advanced COPD, renal cell carcinoma status post radiotherapy on 06/2020 he follows up with Dr. cole hyperthyroidism Presents because of dyspnea and for 1 week Patient also complaining of from cough about greenish hess in color but no chest pain Patient denies vomiting diarrhea, nausea complaints like burning or urgency, no headache dizziness weakness and numbness She says that he quit smoking in 2008, he denies alcohol or illicit drugs. He is on 2 L oxygen at home and his work adjustment instructor is Dr. Larios Vitals stable and currently he is saturating well 98% on 3 L oxygen if any is a cannula CBC showing hemoglobin 12.1, WBCs normal. PH and the venous sample was within the reference range 7.3 but high pCO2 and 97. Bicarb is also elevated at 46, rest of BMP and liver enzymes were unremarkable. Viruses are undetected including influenza, obesity and coronavirus viruses Chest x-ray: Small left minimal right pleural effusion and COPD Emergency room received breathing treatment, dexamethasone and Zithromax. Also was started on prednisone 40 mg with pulmonary team consult. 03/08/2022 Patient Still dyspneic and wheezing and decreased air entry, he is currently on steroids with IV Solu-Medrol 60 mg. He is on 3 L oxygen via nasal cannula Going to check pro-CALCITONIN and if elevated and was going to start him on Levaquin. Also he has some evidence of fluid overload, he is on oral Lasix 20 mg, will give one-time dose of IV 20 mg. Also he is on triamterene-hydrochlorothiazide Dietary consult for significant malnutrition. 03/09/2022 Patient is currently resting in bed. Denies any complaints of worsening shortness of breath. On oxygen at 3 L via nasal cannula. No complaints of chest pain. Awake alert and oriented. No nausea vomiting abdominal pain or diarrhea. Patient denies antibiotics in the form of Levaquin. Also being continued on Solu-Medrol 60 mg every 6 hourly and duo nebs and Symbicort. Laboratory data reviewed. Procalcitonin level is 0.46 03/10/2022 Patient is currently resting in the bed. Awake alert and oriented. No complaints of chest pain worsening shortness of breath. On 3 L oxygen via nasal cannula. Patient is being currently on IV steroids, duo nebs and Symbicort. Also on antibiotics in the form of Levaquin. Laboratory data showed WBC 5.6 hemoglobin 8.9 and platelets 234 Sodium 139 potassium 5.0 chloride 89 bicarb is 45.9 BUN 25.1 creatinine 0.7 and calcium 6.9. Current medications reviewed. Objective - Vital Signs Vital signs: Vital Signs Temp 97.8 F 03/10/22 20:00 Pulse 61 03/10/22 20:00 Resp 16 03/10/22 20:00 BP 127/65 03/10/22 20:00 Pulse Ox 94 L 03/10/22 20:00 FiO2 Intake & Output 03/10/22 03/10/22 03/11/22 06:59 18:59 06:59 Intake Total 50 650 Output Total 300 575 Balance -250 75 Intake: Oral 50 650 Output: Urine 300 575 Other: Voiding Method Bedside Commode # Voids 1 # Bowel Movements 1 - Exam - Exam -GENERAL: The patient is alert and oriented x3, not in any acute distress. Underweight, BMI 14.3 HEENT: Pupils are round and equally reacting to light. EOMI. No scleral icterus. No conjunctival pallor. Normocephalic, atraumatic. No pharyngeal erythema. No thyromegaly. CARDIOVASCULAR: S1 and S2 present. No murmurs, rubs, or gallops. -PULMONARY: Chest is clear to auscultation, mild exp wheezing . No crackles. Bibasilar diminished sounds. ABDOMEN: Soft, nontender, nondistended, normoactive bowel sounds. No palpable organomegaly. MUSCULOSKELETAL: No joint swelling or deformity. EXTREMITIES: No cyanosis, clubbing, or pedal edema. NEUROLOGICAL: Gross neurological examination did not reveal any focal deficits. SKIN: No rashes. no petechiae. - Labs CBC & Chem 7: 03/10/22 06:38 03/11/22 04:21 Labs: Abnormal Lab Results - Last 24 Hours (Table) 03/10/22 03/10/22 03/10/22 Range/Units 06:09 06:38 06:38 RBC 2.77 L (4.40-5.60) X 10*6/uL Hgb 8.9 L (13.0-17.0) g/dL Hct 28.4 L (39.6-50.0) % MCV 102.5 H (80.0-97.0) fL MCH 32.1 H (27.0-32.0) pg MCHC 31.3 L (32.0-37.0) g/dL RDW 14.6 H (11.5-14.5) % Lymphocytes # 0.45 L (0.90-5.00) X 10*3/uL Eosinophils # 0 L (0.04-0.35) X 10*3/uL Chloride 89 L (96-109) mmol/L Carbon Dioxide 45.9 H* (20.0-27.5) mmol/L Anion Gap 4.00 L (10.00-18.00) mmol/L BUN/Creatinine Ratio 35.49 H (12.00-20.00) Ratio POC Glucose (mg/dL) 113 H (70-110) mg/dL Calcium 6.9 L (8.7-10.3) mg/dL 03/10/22 03/10/22 03/10/22 Range/Units 07:14 11:31 15:53 RBC (4.40-5.60) X 10*6/uL Hgb (13.0-17.0) g/dL Hct (39.6-50.0) % MCV (80.0-97.0) fL MCH (27.0-32.0) pg MCHC (32.0-37.0) g/dL RDW (11.5-14.5) % Lymphocytes # (0.90-5.00) X 10*3/uL Eosinophils # (0.04-0.35) X 10*3/uL Chloride (96-109) mmol/L Carbon Dioxide (20.0-27.5) mmol/L Anion Gap (10.00-18.00) mmol/L BUN/Creatinine Ratio (12.00-20.00) Ratio POC Glucose (mg/dL) 111 H 162 H 128 H (70-110) mg/dL Calcium (8.7-10.3) mg/dL 03/10/22 Range/Units 20:22 RBC (4.40-5.60) X 10*6/uL Hgb (13.0-17.0) g/dL Hct (39.6-50.0) % MCV (80.0-97.0) fL MCH (27.0-32.0) pg MCHC (32.0-37.0) g/dL RDW (11.5-14.5) % Lymphocytes # (0.90-5.00) X 10*3/uL Eosinophils # (0.04-0.35) X 10*3/uL Chloride (96-109) mmol/L Carbon Dioxide (20.0-27.5) mmol/L Anion Gap (10.00-18.00) mmol/L BUN/Creatinine Ratio (12.00-20.00) Ratio POC Glucose (mg/dL) 157 H (70-110) mg/dL Calcium (8.7-10.3) mg/dL Assessment and Plan Assessment: Acute COPD exacerbation Acute tracheobronchitis, no evidence of pneumonia Acute and chronic hypoxic respiratory failure Metastatic renal cell carcinoma,skeletal metastasis. status post radiotherapy Hypothyroidism Moderate to severe protein malnutrition, with BMI 14.3 Small bilateral pleural effusions Former smoker Hypothyroidism DNR/DNI Plan: Continue with steroids, currently on IV Solu-Medrol Continue with a bronchodilator and oxygen therapy c/w levofloxacin DVT prophylaxis: Subcutaneous heparin GI Prophylaxis: Pepcid PT/OT: Pending Prognosis is guarded
--- NOTE | 2022-03-11 22:05 | P.PN ---
Subjective Progress Note Date: 03/11/22 This is a pleasant 89 years old male with past medical history of advanced COPD, renal cell carcinoma status post radiotherapy on 06/2020 he follows up with Dr. cole hyperthyroidism Presents because of dyspnea and for 1 week Patient also complaining of from cough about greenish hess in color but no chest pain Patient denies vomiting diarrhea, nausea complaints like burning or urgency, no headache dizziness weakness and numbness She says that he quit smoking in 2008, he denies alcohol or illicit drugs. He is on 2 L oxygen at home and his maintenance service supervisor is Dr. Larios Vitals stable and currently he is saturating well 98% on 3 L oxygen if any is a cannula CBC showing hemoglobin 12.1, WBCs normal. PH and the venous sample was within the reference range 7.3 but high pCO2 and 97. Bicarb is also elevated at 46, rest of BMP and liver enzymes were unremarkable. Viruses are undetected including influenza, obesity and coronavirus viruses Chest x-ray: Small left minimal right pleural effusion and COPD Emergency room received breathing treatment, dexamethasone and Zithromax. Also was started on prednisone 40 mg with pulmonary team consult. 03/08/2022 Patient Still dyspneic and wheezing and decreased air entry, he is currently on steroids with IV Solu-Medrol 60 mg. He is on 3 L oxygen via nasal cannula Going to check pro-CALCITONIN and if elevated and was going to start him on Levaquin. Also he has some evidence of fluid overload, he is on oral Lasix 20 mg, will give one-time dose of IV 20 mg. Also he is on triamterene-hydrochlorothiazide Dietary consult for significant malnutrition. 03/09/2022 Patient is currently resting in bed. Denies any complaints of worsening shortness of breath. On oxygen at 3 L via nasal cannula. No complaints of chest pain. Awake alert and oriented. No nausea vomiting abdominal pain or diarrhea. Patient denies antibiotics in the form of Levaquin. Also being continued on Solu-Medrol 60 mg every 6 hourly and duo nebs and Symbicort. Laboratory data reviewed. Procalcitonin level is 0.46 03/10/2022 Patient is currently resting in the bed. Awake alert and oriented. No complaints of chest pain worsening shortness of breath. On 3 L oxygen via nasal cannula. Patient is being currently on IV steroids, duo nebs and Symbicort. Also on antibiotics in the form of Levaquin. Laboratory data showed WBC 5.6 hemoglobin 8.9 and platelets 234 Sodium 139 potassium 5.0 chloride 89 bicarb is 45.9 BUN 25.1 creatinine 0.7 and calcium 6.9. 03/11/2022 Patient is currently resting in bed. Awake alert and oriented. No complaints of worsening shortness of breath. Currently on Floxin at baseline. No complaints of fever or chills. Patient is being current IV steroids, Levaquin and duo nebs and Symbicort. Also on DVT prophylaxis. Laboratory showed bicarb level is 46.5 chloride 89 BUN 26.0 and creatinine 0.8. Blood sugar is 114 and calcium 6.7. Anticipate discharge to rehab in the next 24 hours. Current medications reviewed. Objective - Vital Signs Vital signs: Vital Signs Temp 97.9 F 03/11/22 20:11 Pulse 106 H 03/11/22 20:11 Resp 15 03/11/22 20:11 BP 100/74 03/11/22 20:11 Pulse Ox 92 L 03/11/22 20:11 FiO2 Intake & Output 03/11/22 03/11/22 03/12/22 06:59 18:59 06:59 Intake Total 350 Output Total 700 575 Balance -700 -225 Intake: Oral 350 Output: Urine 700 575 Other: Voiding Method Urinal Urinal # Voids 3 - Exam - Exam -GENERAL: The patient is alert and oriented x3, not in any acute distress. Underweight, BMI 14.3 HEENT: Pupils are round and equally reacting to light. EOMI. No scleral icterus. No conjunctival pallor. Normocephalic, atraumatic. No pharyngeal erythema. No thyromegaly. CARDIOVASCULAR: S1 and S2 present. No murmurs, rubs, or gallops. -PULMONARY: Chest is clear to auscultation, no wheezing . No crackles. Bibasilar diminished sounds. ABDOMEN: Soft, nontender, nondistended, normoactive bowel sounds. No palpable organomegaly. MUSCULOSKELETAL: No joint swelling or deformity. EXTREMITIES: No cyanosis, clubbing, or pedal edema. NEUROLOGICAL: Gross neurological examination did not reveal any focal deficits. SKIN: No rashes. no petechiae. - Labs CBC & Chem 7: 03/10/22 06:38 03/11/22 04:21 Labs: Abnormal Lab Results - Last 24 Hours (Table) 03/11/22 03/11/22 03/11/22 Range/Units 04:21 06:30 11:47 Chloride 89 L (96-109) mmol/L Carbon Dioxide 46.5 H* (20.0-27.5) mmol/L Anion Gap 3.50 L (10.00-18.00) mmol/L BUN/Creatinine Ratio 34.12 H (12.00-20.00) Ratio Glucose 114 H (70-110) mg/dL POC Glucose (mg/dL) 114 H 149 H (70-110) mg/dL Calcium 6.7 L (8.7-10.3) mg/dL 03/11/22 03/11/22 Range/Units 17:32 20:13 Chloride (96-109) mmol/L Carbon Dioxide (20.0-27.5) mmol/L Anion Gap (10.00-18.00) mmol/L BUN/Creatinine Ratio (12.00-20.00) Ratio Glucose (70-110) mg/dL POC Glucose (mg/dL) 155 H 158 H (70-110) mg/dL Calcium (8.7-10.3) mg/dL Assessment and Plan Assessment: Acute COPD exacerbation Acute tracheobronchitis, no evidence of pneumonia 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 status post radiotherapy Hypothyroidism Moderate to severe protein malnutrition, with BMI 14.3 Small bilateral pleural effusions Former smoker Hypothyroidism DNR/DNI Plan: Continue with steroids, currently on IV Solu-Medrol Continue with a bronchodilator and oxygen therapy c/w levofloxacin DVT prophylaxis: Subcutaneous heparin GI Prophylaxis: Pepcid PT/OT: Pending Prognosis is guarded Time with Patient: Greater than 30
[2022-03-12] MEDS: methylPREDNISolone SOD SUCCI 125 MG/2 ML VIAL IV SCH (05:42)
[2022-03-12] MEDS: LEVOTHYROXINE 75 MCG TAB PO SCH (05:43)
[2022-03-12 06:15] LABS: Glucose,Whole Blood 149 mg/dL (70-110)
[2022-03-12] MEDS: INSULIN ASPART (NovoLOG) 100 UNIT/ML VIAL SQ SCH ×4 (06:33→20:38)
[2022-03-12] MEDS: IPRATROPIUM-ALBUTEROL 3 ML NEB INHALATION SCH ×4 (07:32→19:58)
[2022-03-12] MEDS: SYMBICORT 160-4.5 MCG INHALER INHALATION SCH ×2 (07:33→19:58)
[2022-03-12 09:29] LABS: BUN/Creat Ratio 40.29 Ratio (12.00-20.00); Blood Urea Nitrogen 30.3 mg/dL (9.0-27.0); Calcium 6.9 mg/dL (8.7-10.3); Potassium 3.6 mmol/L (3.5-5.5)
[2022-03-12] MEDS: LEVOFLOXACIN 500 MG TAB PO SCH (10:47)
[2022-03-12] MEDS: FAMOTIDINE 20 MG TAB PO SCH ×2 (10:47→20:27)
[2022-03-12] MEDS: FUROSEMIDE 20 MG TAB PO SCH (10:47)
[2022-03-12] MEDS: HEPARIN SODIUM,PORCINE/PF 5,000 UNIT/0.5 ML SYRINGE SQ SCH ×2 (10:47→20:27)
[2022-03-12] MEDS: CHOLECALCIFEROL 25 MCG (1000 IU) TABLET PO SCH (10:47)
[2022-03-12 11:00] LABS: Glucose,Whole Blood 235 mg/dL (70-110)
[2022-03-12 11:27] LABS: Carbon Dioxide 45.9 mmol/L (20.0-27.5)
[2022-03-12 11:51] LABS: African American GFR (CKD) 102.6 (60.0-200.0); Anion Gap 3.5 mmol/L (10.00-18.00); Carbon Dioxide 46.5 mmol/L (20.0-27.5)
[2022-03-12 11:55] LABS: African American GFR (CKD) 103.2 (60.0-200.0); Anion Gap 5.9 mmol/L (10.00-18.00)
--- NOTE | 2022-03-12 13:39 | P.PN ---
Subjective Progress Note Date: 03/12/22 Principal diagnosis: Acute exacerbation of severe COPD this is a 76-year-old white male with history of severe end-stage COPD/emphysema, history of renal cell carcinoma, patient is oxygen dependent, maintained on multiple bronchodilators at home. Presented to the hospital with 1 week history of shortness of breath, intermittent cough, cough is productive with greenish hess phlegm. Denies any fever no chills no hemoptysis no chest pain. Denies any nausea or vomiting. Patient complains of profound weakness, patient used to be a heavy smoker, however he quit smoking in 2008.chest x-ray on admission showed evidence of COPD, and small tiny bilateral pleural effusions, CBC is basically unremarkable. Electrolytes are normal however his bicarb is 45.proBNP level is normal. Liver enzymes are normal.patient was admitted, and this consult was initiated.apparently patient had a venous blood gases and it reflected hypercapnia with a pCO2 of 97, pH is well compensated 7.31, remind you his bicarb is 45. Patient clearly has hronic hypoxic andhypercapnic respiratory failure. Considering the presentation obviously the patient has a worsening of his respiratory failure secondary to worsening COPD. Looking back at the chart, I saw this patient last on 01/27 when he was admitted with similar presentation back then. The patient is seen today 03/09/2022 in follow-up on the regular medical floor. Remains awake and alert. Currently resting comfortably in bed. Maintaining O2 saturations in the 90s on 3 L/m per nasal cannula. No IV fluids. Blood sugar 139. He is continued on DuoNeb inhalations, Symbicort, IV Solu-Medrol. Antibiotics in the form of Levaquin. Remains on oral diuretics. The patient is seen today 03/10/2022 in follow-up on the regular medical floor. Currently sitting up in bed. Awake and alert in no acute distress. Maintaining O2 saturations in the 90s on 3 L/m per nasal cannula. Continued on Symbicort, DuoNeb inhalations, IV Solu-Medrol. Continued on heparin for DVT prophylaxis. Antibiotics in the form of Levaquin. White count 5.6. Hemoglobin 8.9. Sodium 139. Potassium 5.0. Bicarb 46. BUN 25. Creatinine 0.7. Glucose 103. Reevaluated today on 03/11/22, patient is feeling better, breathing easier, he is to be considered for placement possibly in rehab in the next 24 hours. Overall I believe this is the best he is going to get. Patient is on 3 L nasal cannula O2 sat is 93%. Labs today showed bicarb of 46 which is not surprising patient is metabolically compensating for chronic respiratory acidosis. Reevaluated today on 03/12/22, patient remains on the regular medical floor, basically about the same, feeling well, no specific complaints, patient is being considered for transfer to rehab or ECF.remains on his usual bronchodilators, I will transition him today to oral prednisone and discontinue Solu-Medrol. Objective - Vital Signs Vital signs: Vital Signs Temp 97.5 F L 03/12/22 08:00 Pulse 80 03/12/22 08:00 Resp 18 03/12/22 08:00 BP 113/60 03/12/22 08:00 Pulse Ox 100 03/12/22 08:00 FiO2 Intake & Output 03/11/22 03/12/22 03/12/22 18:59 06:59 18:59 Intake Total 350 Output Total 575 350 Balance -225 -350 Intake: Oral 350 Output: Urine 575 350 Other: Voiding Method Urinal Urinal Urinal # Bowel Movements 1 - Exam GENERAL EXAM: Revealed a 76-year-old white male frail looking chronically ill, in no distress HEAD: Normocephalic. EYES: Normal reaction of pupils, equal size. NOSE: Clear with pink turbinates. THROAT: No erythema or exudates. NECK: No masses, no JVD. CHEST: No chest wall deformity. LUNGS: Diminished breath sound bilaterally no crackles or rhonchi or wheezes CVS: S1 and S2 normal with no audible murmur, regular rhythm. ABDOMEN: No hepatosplenomegaly, normal bowel sounds, no guarding or rigidity. CENTRAL NERVOUS SYSTEM: Alert and oriented 3 no gross deficit EXTREMITIES: No clubbing edema or cyanosis - Labs CBC & Chem 7: 03/10/22 06:38 03/12/22 03:51 Labs: Abnormal Lab Results - Last 24 Hours (Table) 03/10/22 03/11/22 03/11/22 Range/Units 06:38 04:21 17:32 Chloride (96-109) mmol/L Carbon Dioxide 45.9 H* 46.5 H* (20.0-27.5) mmol/L Anion Gap 4.00 L 3.50 L (10.00-18.00) mmol/L BUN (9.0-27.0) mg/dL BUN/Creatinine Ratio (12.00-20.00) Ratio Glucose (70-110) mg/dL POC Glucose (mg/dL) 155 H (70-110) mg/dL Calcium (8.7-10.3) mg/dL 03/11/22 03/12/22 03/12/22 Range/Units 20:13 03:51 06:14 Chloride 90 L (96-109) mmol/L Carbon Dioxide 45.0 H* (20.0-27.5) mmol/L Anion Gap 5.90 L (10.00-18.00) mmol/L BUN 30.3 H (9.0-27.0) mg/dL BUN/Creatinine Ratio 40.29 H (12.00-20.00) Ratio Glucose 161 H (70-110) mg/dL POC Glucose (mg/dL) 158 H 149 H (70-110) mg/dL Calcium 6.9 L (8.7-10.3) mg/dL 03/12/22 Range/Units 10:58 Chloride (96-109) mmol/L Carbon Dioxide (20.0-27.5) mmol/L Anion Gap (10.00-18.00) mmol/L BUN (9.0-27.0) mg/dL BUN/Creatinine Ratio (12.00-20.00) Ratio Glucose (70-110) mg/dL POC Glucose (mg/dL) 235 H (70-110) mg/dL Calcium (8.7-10.3) mg/dL Assessment and Plan Assessment: impression: Acute exacerbation of COPD Acute tracheobronchitis, no evidence of pneumonia Small bilateral pleural effusions most likely secondary to hypoproteinemia/hypoalbuminemia secondary to his chronic moderate severe protein calorie malnutrition. Metastatic renal cell carcinoma,skeletal metastasis. Weight loss secondary to metastatic disease and underlying COPD. Recommendation: Continue present course of bronchodilators. Continue steroids, could transition to oral prednisone. Continue diuretics GI and DVT prophylaxis. Consider placement on this patient cleared for discharge if bed is available for this patient. Time with Patient: Less than 30
--- NOTE | 2022-03-12 16:07 | P.PN ---
Subjective Progress Note Date: 03/12/22 This is a pleasant 89 years old male with past medical history of advanced COPD, renal cell carcinoma status post radiotherapy on 06/2020 he follows up with Dr. cole hyperthyroidism Presents because of dyspnea and for 1 week Patient also complaining of from cough about greenish hess in color but no chest pain Patient denies vomiting diarrhea, nausea complaints like burning or urgency, no headache dizziness weakness and numbness She says that he quit smoking in 2008, he denies alcohol or illicit drugs. 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 Larios Vitals stable and currently he is saturating well 98% on 3 L oxygen if any is a cannula CBC showing hemoglobin 12.1, WBCs normal. PH and the venous sample was within the reference range 7.3 but high pCO2 and 97. Bicarb is also elevated at 46, rest of BMP and liver enzymes were unremarkable. Viruses are undetected including influenza, obesity and coronavirus viruses Chest x-ray: Small left minimal right pleural effusion and COPD Emergency room received breathing treatment, dexamethasone and Zithromax. Also was started on prednisone 40 mg with pulmonary team consult. 03/08/2022 Patient Still dyspneic and wheezing and decreased air entry, he is currently on steroids with IV Solu-Medrol 60 mg. He is on 3 L oxygen via nasal cannula Going to check pro-CALCITONIN and if elevated and was going to start him on Levaquin. Also he has some evidence of fluid overload, he is on oral Lasix 20 mg, will give one-time dose of IV 20 mg. Also he is on triamterene-hydrochlorothiazide Dietary consult for significant malnutrition. 03/09/2022 Patient is currently resting in bed. Denies any complaints of worsening shortness of breath. On oxygen at 3 L via nasal cannula. No complaints of chest pain. Awake alert and oriented. No nausea vomiting abdominal pain or diarrhea. Patient denies antibiotics in the form of Levaquin. Also being continued on Solu-Medrol 60 mg every 6 hourly and duo nebs and Symbicort. Laboratory data reviewed. Procalcitonin level is 0.46 03/10/2022 Patient is currently resting in the bed. Awake alert and oriented. No complaints of chest pain worsening shortness of breath. On 3 L oxygen via nasal cannula. Patient is being currently on IV steroids, duo nebs and Symbicort. Also on antibiotics in the form of Levaquin. Laboratory data showed WBC 5.6 hemoglobin 8.9 and platelets 234 Sodium 139 potassium 5.0 chloride 89 bicarb is 45.9 BUN 25.1 creatinine 0.7 and calcium 6.9. 03/11/2022 Patient is currently resting in bed. Awake alert and oriented. No complaints of worsening shortness of breath. Currently on Floxin at baseline. No complaints of fever or chills. Patient is being current IV steroids, Levaquin and duo nebs and Symbicort. Also on DVT prophylaxis. Laboratory showed bicarb level is 46.5 chloride 89 BUN 26.0 and creatinine 0.8. Blood sugar is 114 and calcium 6.7. Anticipate discharge to rehab in the next 24 hours. 03/12/2022 Patient is currently sitting in the recliner. Awake alert and oriented. No complaints of chest pain. Shortness of breath is much improved. Currently on 3 at approximately nasal cannula. IV steroids have been discontinued and patient was started on prednisone tapering course starting at 30 mg daily. Continue with Joey's periodically from pulmonary standpoint Patient is awaiting for transfer to rehab. Financial concerns about his cancer medications. Current medications reviewed. Objective - Vital Signs Vital signs: Vital Signs Temp 97.5 F L 03/12/22 14:00 Pulse 80 03/12/22 15:39 Resp 18 03/12/22 15:39 BP 119/66 03/12/22 14:00 Pulse Ox 100 03/12/22 14:00 FiO2 Intake & Output 03/11/22 03/12/22 03/12/22 18:59 06:59 18:59 Intake Total 350 Output Total 575 350 Balance -225 -350 Intake: Oral 350 Output: Urine 575 350 Other: Voiding Method Urinal Urinal Urinal # Bowel Movements 1 - Exam - Exam -GENERAL: The patient is alert and oriented x3, not in any acute distress. Underweight, BMI 14.3 HEENT: Pupils are round and equally reacting to light. EOMI. No scleral icterus. No conjunctival pallor. Normocephalic, atraumatic. No pharyngeal erythema. No thyromegaly. CARDIOVASCULAR: S1 and S2 present. No murmurs, rubs, or gallops. -PULMONARY: Chest is clear to auscultation, no wheezing . No crackles. Bibasilar diminished sounds. ABDOMEN: Soft, nontender, nondistended, normoactive bowel sounds. No palpable organomegaly. MUSCULOSKELETAL: No joint swelling or deformity. EXTREMITIES: No cyanosis, clubbing, or pedal edema. NEUROLOGICAL: Gross neurological examination did not reveal any focal deficits. SKIN: No rashes. no petechiae. - Labs CBC & Chem 7: 03/10/22 06:38 03/12/22 03:51 Labs: Abnormal Lab Results - Last 24 Hours (Table) 03/10/22 03/11/22 03/11/22 Range/Units 06:38 04:21 17:32 Chloride (96-109) mmol/L Carbon Dioxide 45.9 H* 46.5 H* (20.0-27.5) mmol/L Anion Gap 4.00 L 3.50 L (10.00-18.00) mmol/L BUN (9.0-27.0) mg/dL BUN/Creatinine Ratio (12.00-20.00) Ratio Glucose (70-110) mg/dL POC Glucose (mg/dL) 155 H (70-110) mg/dL Calcium (8.7-10.3) mg/dL 03/11/22 03/12/22 03/12/22 Range/Units 20:13 03:51 06:14 Chloride 90 L (96-109) mmol/L Carbon Dioxide 45.0 H* (20.0-27.5) mmol/L Anion Gap 5.90 L (10.00-18.00) mmol/L BUN 30.3 H (9.0-27.0) mg/dL BUN/Creatinine Ratio 40.29 H (12.00-20.00) Ratio Glucose 161 H (70-110) mg/dL POC Glucose (mg/dL) 158 H 149 H (70-110) mg/dL Calcium 6.9 L (8.7-10.3) mg/dL 03/12/22 Range/Units 10:58 Chloride (96-109) mmol/L Carbon Dioxide (20.0-27.5) mmol/L Anion Gap (10.00-18.00) mmol/L BUN (9.0-27.0) mg/dL BUN/Creatinine Ratio (.00-20.00) Ratio Glucose (70-110) mg/dL POC Glucose (mg/dL) 235 H (70-110) mg/dL Calcium (8.7-10.3) mg/dL Assessment and Plan Assessment: Acute COPD exacerbation Acute tracheobronchitis, no evidence of pneumonia 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 status post radiotherapy Hypothyroidism Moderate to severe protein malnutrition, with BMI 14.3 Small bilateral pleural effusions Former smoker Hypothyroidism DNR/DNI Plan: IV steroids changed to prednisone 30 mg daily. Continue with the Lasix Continue with a bronchodilator and oxygen therapy c/w levofloxacin until 03/14/2022. DVT prophylaxis: Subcutaneous heparin GI Prophylaxis: Pepcid PT/OT: Pending Prognosis is guarded Anticipate discharge to rehab Time with Patient: Greater than 30
[2022-03-12 16:57] LABS: Glucose,Whole Blood 120 mg/dL (70-110)
[2022-03-12 20:23] LABS: Glucose,Whole Blood 131 mg/dL (70-110)
[2022-03-13] MEDS: LEVOTHYROXINE 75 MCG TAB PO SCH (05:57)
[2022-03-13 06:10] LABS: Glucose,Whole Blood 79 mg/dL (70-110)
[2022-03-13] MEDS: INSULIN ASPART (NovoLOG) 100 UNIT/ML VIAL SQ SCH ×3 (06:30→17:11)
[2022-03-13] MEDS: FAMOTIDINE 20 MG TAB PO SCH (08:11)
[2022-03-13] MEDS: FUROSEMIDE 20 MG TAB PO SCH (08:12)
[2022-03-13] MEDS: CHOLECALCIFEROL 25 MCG (1000 IU) TABLET PO SCH (08:12)
[2022-03-13] MEDS: HEPARIN SODIUM,PORCINE/PF 5,000 UNIT/0.5 ML SYRINGE SQ SCH (08:12)
[2022-03-13] MEDS: LEVOFLOXACIN 500 MG TAB PO SCH (08:12)
[2022-03-13 08:44] VITALS: RESP 17
[2022-03-13] MEDS ORDERED: predniSONE 10 MG TAB PO SCH (09:00)
[2022-03-13] MEDS: SYMBICORT 160-4.5 MCG INHALER INHALATION SCH (09:20)
[2022-03-13] MEDS: IPRATROPIUM-ALBUTEROL 3 ML NEB INHALATION SCH ×3 (09:21→17:03)
[2022-03-13 11:27] LABS: Glucose,Whole Blood 136 mg/dL (70-110)
--- NOTE | 2022-03-13 14:04 | P.PN ---
Subjective Progress Note Date: 03/13/22 Principal diagnosis: Acute exacerbation of severe COPD this is a 76-year-old white male with history of severe end-stage COPD/emphysema, history of renal cell carcinoma, patient is oxygen dependent, maintained on multiple bronchodilators at home. Presented to the hospital with 1 week history of shortness of breath, intermittent cough, cough is productive with greenish hess phlegm. Denies any fever no chills no hemoptysis no chest pain. Denies any nausea or vomiting. Patient complains of profound weakness, patient used to be a heavy smoker, however he quit smoking in 2008.chest x-ray on admission showed evidence of COPD, and small tiny bilateral pleural effusions, CBC is basically unremarkable. Electrolytes are normal however his bicarb is 45.proBNP level is normal. Liver enzymes are normal.patient was admitted, and this consult was initiated.apparently patient had a venous blood gases and it reflected hypercapnia with a pCO2 of 97, pH is well compensated 7.31, remind you his bicarb is 45. Patient clearly has hronic hypoxic andhypercapnic respiratory failure. Considering the presentation obviously the patient has a worsening of his respiratory failure secondary to worsening COPD. Looking back at the chart, I saw this patient last on 01/27 when he was admitted with similar presentation back then. The patient is seen today 03/09/2022 in follow-up on the regular medical floor. Remains awake and alert. Currently resting comfortably in bed. Maintaining O2 saturations in the 90s on 3 L/m per nasal cannula. No IV fluids. Blood sugar 139. He is continued on DuoNeb inhalations, Symbicort, IV Solu-Medrol. Antibiotics in the form of Levaquin. Remains on oral diuretics. The patient is seen today 03/10/2022 in follow-up on the regular medical floor. Currently sitting up in bed. Awake and alert in no acute distress. Maintaining O2 saturations in the 90s on 3 L/m per nasal cannula. Continued on Symbicort, DuoNeb inhalations, IV Solu-Medrol. Continued on heparin for DVT prophylaxis. Antibiotics in the form of Levaquin. White count 5.6. Hemoglobin 8.9. Sodium 139. Potassium 5.0. Bicarb 46. BUN 25. Creatinine 0.7. Glucose 103. Reevaluated today on 03/11/22, patient is feeling better, breathing easier, he is to be considered for placement possibly in rehab in the next 24 hours. Overall I believe this is the best he is going to get. Patient is on 3 L nasal cannula O2 sat is 93%. Labs today showed bicarb of 46 which is not surprising patient is metabolically compensating for chronic respiratory acidosis. Reevaluated today on 03/12/22, patient remains on the regular medical floor, basically about the same, feeling well, no specific complaints, patient is being considered for transfer to rehab or ECF.remains on his usual bronchodilators, I will transition him today to oral prednisone and discontinue Solu-Medrol. I'm evaluating this patient today on 03/13/2022 on a regular medical floor. He remains quite stable on 3 L nasal cannula, and in no acute distress. the patient denies shortness of breath, cough, or fever. I agree with the plan to discharge to [facility]. no new labs or x-rays to review.the patient is maintained on DuoNeb inhalation and prednisone taper. continues to receive empiric antibiotic therapy in the form of by mouth Levaquin. vital signs remained stable. Objective - Vital Signs Vital signs: Vital Signs Temp 97.7 F 03/13/22 08:00 Pulse 98 03/13/22 12:54 Resp 17 03/13/22 08:00 BP 98/62 03/13/22 08:00 Pulse Ox 96 03/13/22 09:22 FiO2 Intake & Output 03/12/22 03/13/22 03/13/22 18:59 06:59 18:59 Output Total 300 350 Balance -300 -350 Weight 45.359 kg Output: Urine 300 350 Other: Voiding Method Urinal Urinal Urinal # Voids 200 # Bowel Movements 1 - Exam GENERAL EXAM: Revealed a 76-year-old white male frail looking chronically ill, in no distress HEAD: Normocephalic. EYES: Normal reaction of pupils, equal size. NOSE: Clear with pink turbinates. THROAT: No erythema or exudates. NECK: No masses, no JVD. CHEST: No chest wall deformity. LUNGS: Diminished breath sound bilaterally no crackles or rhonchi or wheezes CVS: S1 and S2 normal with no audible murmur, regular rhythm. ABDOMEN: No hepatosplenomegaly, normal bowel sounds, no guarding or rigidity. CENTRAL NERVOUS SYSTEM: Alert and oriented 3 no gross deficit EXTREMITIES: No clubbing edema or cyanosis - Labs CBC & Chem 7: 03/10/22 06:38 03/12/22 03:51 Labs: Abnormal Lab Results - Last 24 Hours (Table) 03/12/22 03/12/22 03/13/22 Range/Units 16:55 20:22 11:26 POC Glucose (mg/dL) 120 H 131 H 136 H (70-110) mg/dL Assessment and Plan Assessment: Acute exacerbation of COPD Acute tracheobronchitis, no evidence of pneumonia Small bilateral pleural effusions most likely secondary to hypoproteinemia/hypoalbuminemia secondary to his chronic moderate severe protein calorie malnutrition. Metastatic renal cell carcinoma,skeletal metastasis. Weight loss secondary to metastatic disease and underlying COPD. Plan: Continue present course of bronchodilators. continue oral prednisone taper Continue diuretics GI and DVT prophylaxis. patient is to be discharged [facility]. I have personally seen and examined the patient, performed the documentation and the assessment and plan as written. Number of minutes spent on the visit: [ 10]. Time with Patient: Less than 30
[2022-03-13 14:21] VITALS: BP 105/64; PULSE 104; TEMP 97.4
--- NOTE | 2022-03-13 15:14 | P.DS ---
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 status post radiotherapy Hypothyroidism Moderate to severe protein malnutrition, with BMI 14.3 Small bilateral pleural effusions Former smoker Hypothyroidism DNR/DNI Hospital course This is a pleasant 89 years old male with past medical history of advanced COPD, renal cell carcinoma status post radiotherapy on 06/2020 he follows up with Dr. cole hyperthyroidism Presents because of dyspnea and for 1 week Patient also complaining of from cough about greenish hess in color but no chest pain Patient denies vomiting diarrhea, nausea complaints like burning or urgency, no headache dizziness weakness and numbness She says that he quit smoking in 2008, he denies alcohol or illicit drugs. 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 Larios Vitals stable and currently he is saturating well 98% on 3 L oxygen if any is a cannula CBC showing hemoglobin 12.1, WBCs normal. PH and the venous sample was within the reference range 7.3 but high pCO2 and 97. Bicarb is also elevated at 46, rest of BMP and liver enzymes were unremarkable. Viruses are undetected including influenza, obesity and coronavirus viruses Chest x-ray: Small left minimal right pleural effusion and COPD Emergency room received breathing treatment, dexamethasone and Zithromax. Also was started on prednisone 40 mg with pulmonary team consult. 03/08/2022 Patient Still dyspneic and wheezing and decreased air entry, he is currently on steroids with IV Solu-Medrol 60 mg. He is on 3 L oxygen via nasal cannula Going to check pro-CALCITONIN and if elevated and was going to start him on Levaquin. Also he has some evidence of fluid overload, he is on oral Lasix 20 mg, will give one-time dose of IV 20 mg. Also he is on triamterene-hydrochlorothiazide Dietary consult for significant malnutrition. 03/09/2022 Patient is currently resting in bed. Denies any complaints of worsening shortness of breath. On oxygen at 3 L via nasal cannula. No complaints of chest pain. Awake alert and oriented. No nausea vomiting abdominal pain or diarrhea. Patient denies antibiotics in the form of Levaquin. Also being continued on Solu-Medrol 60 mg every 6 hourly and duo nebs and Symbicort. Laboratory data reviewed. Procalcitonin level is 0.46 03/10/2022 Patient is currently resting in the bed. Awake alert and oriented. No complaints of chest pain worsening shortness of breath. On 3 L oxygen via nasal cannula. Patient is being currently on IV steroids, duo nebs and Symbicort. Also on antibiotics in the form of Levaquin. Laboratory data showed WBC 5.6 hemoglobin 8.9 and platelets 234 Sodium 139 potassium 5.0 chloride 89 bicarb is 45.9 BUN 25.1 creatinine 0.7 and calcium 6.9. 03/11/2022 Patient is currently resting in bed. Awake alert and oriented. No complaints of worsening shortness of breath. Currently on Floxin at baseline. No complaints of fever or chills. Patient is being current IV steroids, Levaquin and duo nebs and Symbicort. Also on DVT prophylaxis. Laboratory showed bicarb level is 46.5 chloride 89 BUN 26.0 and creatinine 0.8. Blood sugar is 114 and calcium 6.7. Anticipate discharge to rehab in the next 24 hours. 03/12/2022 Patient is currently sitting in the recliner. Awake alert and oriented. No complaints of chest pain. Shortness of breath is much improved. Currently on 3 at approximately nasal cannula. IV steroids have been discontinued and patient was started on prednisone tapering course starting at 30 mg daily. Continue with DuoNeb's periodically from pulmonary standpoint Patient is awaiting for transfer to rehab. Financial concerns about his cancer medications. Next 05/14/2021 Patient is currently stating the chair. Awake alert and oriented. Shortness of breath is stable. Requiring 3 L oxygen via nasal cannula. Continue with steroid tapering course. Patient is also on DuoNeb's. Patient will need to follow with oncology as an outpatient. Hemodynamically stable and is being discharged to rehab. - Exam -GENERAL: The patient is alert and oriented x3, not in any acute distress. Underweight, BMI 14.3 HEENT: Pupils are round and equally reacting to light. EOMI. No scleral icterus. No conjunctival pallor. Normocephalic, atraumatic. No pharyngeal erythema. No thyromegaly. CARDIOVASCULAR: S1 and S2 present. No murmurs, rubs, or gallops. -PULMONARY: Chest is clear to auscultation, no wheezing . No crackles. Bibasilar diminished sounds. ABDOMEN: Soft, nontender, nondistended, normoactive bowel sounds. No palpable organomegaly. MUSCULOSKELETAL: No joint swelling or deformity. EXTREMITIES: No cyanosis, clubbing, or pedal edema. NEUROLOGICAL: Gross neurological examination did not reveal any focal deficits. SKIN: No rashes. no petechiae. Vital Signs 03/13/22 03/13/22 03/13/22 08:00 09:22 09:32 Temperature 97.7 F Pulse Rate 80 86 Pulse Rate [ 76 Pulse Oximetery ] Respiratory 17 Rate Blood Pressure 98/62 [Left Arm] O2 Sat by Pulse 99 96 Oximetry 03/13/22 03/13/22 03/13/22 12:46 12:54 14:00 Temperature 97.4 F L Pulse Rate 101 H 98 Pulse Rate [ 104 H Pulse Oximetery ] Respiratory 17 Rate Blood Pressure 105/64 [Left Arm] O2 Sat by Pulse 98 Oximetry Total time taken greater than 35 minutes including 18 minutes for counseling and coordination of care. Patient Condition at Discharge: Fair Plan - Discharge Summary Discharge Rx Participant: No New Discharge Prescriptions: New Levofloxacin [Levaquin] 500 mg PO Q24H 2 Days #2 tab Furosemide [Lasix] 20 mg PO DAILY #15 tab predniSONE See Taper PO DIRECTED #18 tab Continue Tiotropium 18 Mcg/Puff [Spiriva] 2 cap INHALATION RT-DAILY Albuterol Sulfate [Proair Hfa] 2 puff INHALATION RT-Q6H PRN PRN Reason: shortness of breath Fluticasone/Vilanterol [Breo Ellipta 100-25 Mcg Inhaler] 1 puff INHALATION RT-DAILY Cabozantinib S-Malate [Cabometyx] 40 mg PO DAILY Levothyroxine Sodium [Levo-T] 75 mcg PO DAILY Cholecalciferol [Vitamin D3 (25 Mcg = 1000 Iu)] 50 mcg PO DAILY Potassium Chloride ER [K-Dur 20] 20 meq PO THFRSA Triamterene/Hydrochlorothiazid [Triamterene-Hctz 37.5-25 mg Tb] 1 tab PO THFRSA Discharge Medication List Albuterol Sulfate [Proair Hfa] 2 puff INHALATION RT-Q6H PRN 08/07/13 [History] Tiotropium 18 Mcg/Puff [Spiriva] 2 cap INHALATION RT-DAILY 08/07/13 [History] Fluticasone/Vilanterol [Breo Ellipta 100-25 Mcg Inhaler] 1 puff INHALATION RT- DAILY 08/13/19 [History] Cabozantinib S-Malate [Cabometyx] 40 mg PO DAILY 01/26/22 [History] Cholecalciferol [Vitamin D3 (25 Mcg = 1000 Iu)] 50 mcg PO DAILY 01/26/22 [History] Levothyroxine Sodium [Levo-T] 75 mcg PO DAILY 01/26/22 [History] Potassium Chloride ER [K-Dur 20] 20 meq PO THFRSA 03/07/22 [History] Triamterene/Hydrochlorothiazid [Triamterene-Hctz 37.5-25 mg Tb] 1 tab PO THFRSA 03/07/22 [History] Furosemide [Lasix] 20 mg PO DAILY #15 tab 03/12/22 [Rx] Levofloxacin [Levaquin] 500 mg PO Q24H 2 Days #2 tab 03/12/22 [Rx] predniSONE See Taper PO DIRECTED #18 tab 03/12/22 [Rx] Follow up Appointment(s)/Referral(s): Brody Manzano MD [Primary Care Provider] - 1-2 days [facility], [NON-STAFF] - As Needed Discharge Disposition: TRANSFER TO SNF/ECF
== END 2022-03-13 17:21 | DRG 190 ==
LOC: EC 10:59 → 4SSUR 13:38
PROVIDERS: ADMIT Internal Medicine; ATTEND Internal Medicine
DX: J44.1 Chronic obstructive pulmonary disease with (acute) exacerbation (principal); E43 Unspecified severe protein-calorie malnutrition; J96.21 Acute and chronic respiratory failure with hypoxia; J96.22 Acute and chronic respiratory failure with hypercapnia; C64.9 Malignant neoplasm of unspecified kidney, except renal pelvis; C79.51 Secondary malignant neoplasm of bone; Z68.1 Body mass index [BMI] 19.9 or less, adult; J90 Pleural effusion, not elsewhere classified; J20.9 Acute bronchitis, unspecified; J44.0 Chronic obstructive pulmonary disease with (acute) lower respiratory infection; Z20.822 Contact with and (suspected) exposure to COVID-19; E03.9 Hypothyroidism, unspecified; E77.8 Other disorders of glycoprotein metabolism; E88.09 Other disorders of plasma-protein metabolism, not elsewhere classified; Z66 Do not resuscitate; Z71.3 Dietary counseling and surveillance; Z88.0 Allergy status to penicillin; Z99.81 Dependence on supplemental oxygen; Z92.3 Personal history of irradiation; Z87.891 Personal history of nicotine dependence; Z85.850 Personal history of malignant neoplasm of thyroid; Z79.890 Hormone replacement therapy
CPT/HCPCS: 36415; 71046; 80048; 80053; 82803; 83735; 83880; 84145; 84484; 85025; 87636; 93005; 94640; 94760; 96374; 99291